=== PATIENT | female | born 1960 | race Caucasian/White ===

== ENCOUNTER → 2019-05-11 13:11 | Outpatient (BNVA) | payer OTHER, SELFPAY | PROVIDERS: Family Provider Internal Medicine; PCP Internal Medicine; Visit Provider Specialist | DX: G20 Parkinson's disease (principal) | CPT/HCPCS: 99214 ==

== ENCOUNTER 2019-05-14 13:00 | Outpatient (CLI) | payer OTHER, SELFPAY ==
--- NOTE | 2019-05-14 13:13 | XR_ITS ---
WS: [id number] DEXA (DUAL ENERGY X-RAY ABSORPTIOMETRY) Bone mineral density was performed using a [employer] machine. HISTORY: Status, asymptomatic POSTMENOPAUSAL COMPARISON: None available. Lumbar spine BMD (L1-L4): 0.970 g/cm2 T score: -1.7 Z score: -1.7 Total hip BMD: Left: 0.686 g/cm2. T score: -2.5 Z score: -2.4 Right: 0.660 g/cm2. T score: -2.8 Z score: -2.6 10 year probability of a major osteoporotic fracture is 21%. XR/XR DEXA axial skeleton* [id number] IMPRESSION: OSTEOPOROSIS based upon the WHO classification for females.
== END 2019-05-14 13:01 | disposition home or self-care (01) ==
LOC: RADWPI 13:07
PROVIDERS: Family Provider Internal Medicine; PCP Internal Medicine; Visit Provider Internal Medicine
DX: Z78.0 Asymptomatic menopausal state (principal); M81.0 Age-related osteoporosis without current pathological fracture
CPT/HCPCS: 77080

== ENCOUNTER 2019-05-18 08:25 | Outpatient (CLI) | payer OTHER, SELFPAY ==
--- NOTE | 2019-05-18 08:30 | MM_ITS ---
WS: [id number] SCREENING DIGITAL MAMMOGRAM WITH CAD HISTORY: SCREENING COMPARISON: 06/19/2017, 08/02/2014 and 07/31/2015 Bilateral CC and MLO views submitted. Computer aided detection analyzed. Breast composition: There are scattered areas of fibroglandular density. Scattered asymmetries in the RIGHT breast. These asymmetries are irregular shaped and in the central breast. Asymmetry seen on th e RIGHT MLO does not correspond in location to the asymmetries on the CC projection. I favor these ar e probably all fibroglandular superimposed asymmetries. RIGHT breast: Spot compression views (CC and MLO). True ML. Ultrasound to follow if abnormality persi sts. MM/[place] [id number] IMPRESSION: BI-RADS: 0-Incomplete: Need additional imaging evaluation FOLLOW UP: Need Additional Imaging
== END 2019-05-18 08:26 | disposition home or self-care (01) ==
LOC: RADSHAW 08:28
PROVIDERS: Family Provider Internal Medicine; PCP Internal Medicine; Visit Provider Internal Medicine
DX: Z12.31 Encounter for screening mammogram for malignant neoplasm of breast (principal)
CPT/HCPCS: 77067

== ENCOUNTER 2019-05-25 09:55 | Outpatient (CLI) | payer OTHER, SELFPAY ==
--- NOTE | 2019-05-25 10:03 | MM_ITS ---
WS: [id number] ADDITIONAL VIEWS RIGHT BREAST HISTORY: RT BREAST ASYMMETRIES COMPARISON: 08/02/2014, 05/18/2019 and 06/19/2017 and 07/31/2015 Compression views right CC and MLO projection. True ML also submitted. Additional views of the RIGHT breast have been performed. The previously described asymmetries comple tely resolved. The overall fibroglandular pattern and calcifications are similar to prior studies. No distortion. FOLLOW-UP: 1 Year Follow-up Asymmetries resolve with additional imaging. Return to annual screening. MM/[place] [id number] IMPRESSION: BI-RADS: 2-Benign
== END 2019-05-25 09:56 | disposition home or self-care (01) ==
LOC: RADSHAW 09:57
PROVIDERS: Family Provider Internal Medicine; PCP Internal Medicine; Visit Provider Internal Medicine
DX: N64.89 Other specified disorders of breast (principal)
CPT/HCPCS: 77065

== ENCOUNTER 2019-08-17 11:29 | Outpatient (CLI) | payer OTHER, SELFPAY ==
--- NOTE | 2019-08-17 11:44 | XR_ITS ---
WS: [id number] LEFT KNEE: 3 VIEW(S) TECHNIQUE: AP, oblique(s) and lateral. HISTORY: PAIN IN LT KNEE COMPARISON: None available. No fracture or dislocation. No joint space narrowing or osteophytes. No joint effusion. No soft tissue abnormality. XR/XR knee LT 3V* [id number] IMPRESSION: Normal LEFT knee.
== END 2019-08-17 11:30 | disposition home or self-care (01) ==
LOC: RADWPI 11:33
PROVIDERS: Family Provider Internal Medicine; PCP Internal Medicine; Visit Provider Internal Medicine
DX: M25.562 Pain in left knee (principal)
CPT/HCPCS: 73562

== ENCOUNTER 2019-08-29 05:54 | Inpatient (IN) | payer OTHER, SELFPAY ==
[2019-08-29] VITALS (24 sets, daily range): BP systolic 106–162; BP diastolic 60–103; PULSE 81–96; RESP 14–22; TEMP 36.2–36.9; O2SAT 93–100; BMI 35.2
--- NOTE | 2019-08-29 | XR_ITS ---
WS: [id number] XR hip RT 2-3V wo/w pel* [id number] REASON FOR EXAM: OR PICS FINDINGS: The fracture of the intertrochanteric areas seen stabilized with a gamma nail apparatus the alignment is satisfactory for healing. XR/XR hip RT 2-3V wo/w pel* [id number] IMPRESSION: Successful reduction and immobilization with a gamma nail of an intertrochanter ic fracture of the right hip.
--- NOTE | 2019-08-29 | SCC_ITS ---
Procedure Done: Open reduction internal fixation of right intertrochanteric hip fracture treated with intramedullary nail with proximal and distal interlocking 152.6 seconds of fluoroscopic guidance, for a cumulative dose of 32.51 mGy, was provided to Dr. Rodriguez by the radiology department. C-arm images of the RIGHT hip were saved for the patient's permanent record. [facility]
--- NOTE | 2019-08-29 06:05 | XRR_ITS ---
PROCEDURE INFORMATION: Exam: XR Right Hip with Pelvis when Performed Exam date and time: 08/29/2019 6:36 AM Age: 58 years old Clinical indication: Injury or trauma; Fall; Initial encounter; Blunt trauma (contusions or hematomas); Right; Hip TECHNIQUE: Imaging protocol: XR Right hip with pelvis when performed. Views: 1 view. COMPARISON: No relevant prior studies available. FINDINGS: Bones/joints: Acute fracture of the proximal right femur with medial displacement of the major distal fracture fragment. Soft tissues: Diffuse soft tissue prominence. XR/XR hip RT 2-3V wo/w pel* [id number] IMPRESSION: Acute fracture of the proximal right femur with medial displacement of the major distal fracture fragment.
--- NOTE | 2019-08-29 06:09 | W.ED.FALL ---
HPI - Fall General: Chief Complaint: Fall Stated Complaint: fall/ hip pain Time Seen by Provider: 08/29/19 06:05 Review of Systems General: Reports: 10 or more systems reviewed and unremarkable except in HPI and below Musc: Reports: back pain, extremity pain, joint pain and limited range of motion PFSH ED PFSH: Social History Smoking and tobacco status: never smoked Alcohol intake: never Physical Exam HENMT: COMMON NORMALS: normocephalic HEAD & SCALP: normocephalic Resp: COMMON NORMALS: normal respiratory effort, no retractions and no use of accessory muscles Cardio: COMMON NORMALS: regular rate and regular rhythm RATE: regular rate RHYTHM: regular rhythm Extremity: RIGHT LOWER EXTREMITY: Yes hip joint Course Vital Signs: Vital signs: Vital Signs Temperature 97.7 F 08/29/19 05:58 Pulse Rate 81 08/29/19 07:12 Respiratory Rate 16 08/29/19 07:12 Blood Pressure 155/88 08/29/19 07:12 Pulse Oximetry 98 08/29/19 07:12 MDM - Fall Lab Data: Labs: Lab Results 08/29/19 Range/Units 06:40 WBC 7.0 (4.0-10.0) 10^3/ uL RBC 4.67 (4.1-5.3) 10^6/u L Hgb 12.2 (11.5-15.3) g/dL Hct 40.6 (37.0-47.0) % MCV 86.9 (81-99) fL MCH 26.1 L (28.0-34.0) pg MCHC 30.0 (30.0-36.0) g/dL RDW 14.5 (12.1-15.1) % Plt Count 199 (130-400) 10^3/c mm MPV 12.4 H (7.4-10.4) fL Neut % (Auto) 65.4 % Lymph % (Auto) 24.0 % [place] % (Auto) 7.2 % Eos % (Auto) 1.7 % Baso % (Auto) 0.6 % Neut # (Auto) 4.6 (1.8-7.7) 10^3/u L Lymph # (Auto) 1.7 (0.8-4.8) 10^3/u L [place] # (Auto) 0.5 (0.2-0.9) 10^3/u L Eos # (Auto) 0.1 (0.0-0.8) 10^3/u L Baso # (Auto) 0.0 (0.0-0.1) 10^3/u L Nucleated RBC % (a uto) 0 % Nucleated RBCs # 0.0 /100WBC Imaging Data^: Xray Ortho: My impression: Right hip comminuted intertrochanteric fracture Discharge Plan Discharge Patient Disposition: Admitted As Inpatient Clinical Impression: Hip fracture, right Qualifiers: Encounter type: initial encounter Fracture type: closed Qualified Code(s): S72.001A - Fracture of unspecified part of neck of right femur, initial encounter for closed fracture Condition: Stable Referrals: Ricarda Duffy MD [Primary Care Provider] - Coding Level of Care Code ED Recreation Therapy Aides Teacher for Chg Fwd Exam Expanded Problem Focused
--- NOTE | 2019-08-29 06:19 | XRR_ITS ---
PROCEDURE INFORMATION: Exam: XR Chest, 1 View Exam date and time: 08/29/2019 6:42 AM Age: 58 years old Clinical indication: Injury or trauma; Fall; Initial encounter; Blunt trauma (contusions or hematomas); Additional info: FX hip TECHNIQUE: Imaging protocol: XR of the chest Views: 1 view. COMPARISON: CR Ribs RIGHT w PA Chest [id number] 04/09/2019 10:19 AM FINDINGS: Lungs: Mild interstitial prominence without acute airspace disease. Pleural space: No pleural effusion. Heart/Mediastinum: Epicardial fat accentuates the cardiac silhouette. Bones/joints: Osteopenia. Old rib fractures. When correlating with the previous study, no significant interval changes are present. XR/XR chest 1V portable [id number] IMPRESSION: Stable appearance of the chest, not significantly changed from 04/09/19.
[2019-08-29] MEDS: ondansetron 2 mg/ML SDV 2 mL 4 MG IVP (06:45)
[2019-08-29] MEDS: fentaNYL 50 mcg/mL INJ 2mL IVP ×3 (06:55→09:45)
[2019-08-29 07:05] LABS: Basophils % 0.6 %; Eosinophils # 0.1 10^3/uL (0.0-0.8); Eosinophils % 1.7 %; Hematocrit 40.6 % (37.0-47.0); Hemoglobin 12.2 g/dL (11.5-15.3); Lymphocytes # 1.7 10^3/uL (0.8-4.8); Mean Corpuscular Hemoglobin 26.1 pg (28.0-34.0); Mean Corpuscular Volume 86.9 fL (81-99); Mean Platelet Volume 12.4 fL (7.4-10.4); Monocytes # 0.5 10^3/uL (0.2-0.9); Monocytes % 7.2 %; Neutrophils # 4.6 10^3/uL (1.8-7.7); Neutrophils % 65.4 %; Nucleated Red Blood Cells % 0 %; Platelet Count 199 10^3/cmm (130-400); Red Blood Count 4.67 10^6/uL (4.1-5.3); Red Cell Distribution Width 14.5 % (12.1-15.1)
--- NOTE | 2019-08-29 07:14 | PC.NURSE ---
First attempt at catheterization unsuccessful. Pt tolerated well. Pt states when she self-caths she has difficulty as well.
[2019-08-29 07:20] LABS: Alanine Aminotransferase 6 U/L (0-33); Albumin Level 4.2 g/dL (3.5-5.2); Alkaline Phosphatase 108 IU/L (35-105); Anion Gap 16.3 (5-19); Blood Urea Nitrogen 11 mg/dL (6-20); Calcium 9.2 mg/dL (8.5-10.5); Carbon Dioxide 26 mmol/L (22-29); Chloride 106 mmol/L (98-107); Globulin 2.7 g/dL (1.3-4.6); Glomerular Filtration Rate 73.9 mL/min (90-130); Glucose 105 mg/dL (65-115); Osmolality Calculated 294 mOsm/kg (285-295); Potassium 4.3 mmol/L (3.5-5.1); Sodium 144 mmol/L (136-145); Total Bilirubin 0.3 mg/dL (0.15-1.2); Total Protein 6.9 g/dL (6.6-8.7)
[2019-08-29 07:30] LABS: Aspartate Amino Transferase 23 U/L (0-32)
[2019-08-29 07:38] LABS: Glucose Urine UA Norm (Normal); Ketones Urine 1+ (Negative); Protein Urine Trace (Negative); Specific Gravity, Urine 1.015 (1.005-1.030); Urine Appearance Hazy (CLEAR); Urine Color Yellow (Yellow); pH Urine 5 (5-7)
[2019-08-29 07:39] LABS: Add Urine Culture? Yes; Add Urine Microscopic? YES; Bacteria Urine 1+; Bilirubin Urine Neg (NEGATIVE); Blood Urine 2+ (Negative); Leukocyte Esterase Urine 2+ (Negative); Nitrate Urine Positive (Negative); RBC Urine 0-4 /hpf (0-2); Squamous Epithelial Cell Urine 0-4 (0-5); Urobilinogen Urine Norm (Negative); WBC Urine TOO NUMEROUS TO CNT /hpf (0-5)
[2019-08-29 07:43] LABS: INR 0.92 (0.8-1.2)
--- NOTE | 2019-08-29 08:03 | ANES.PREANE2 ---
Pre-Anesthetic Assessment Pre-Anesthetic Assessment: Height/Weight: Height 1.68 m Weight 98.883 kg Temp Pulse Resp BP Pulse Ox 97.7 F 83 16 143/87 97 08/29/19 05:58 08/29/19 07:52 08/29/19 07:52 08/29/19 07:52 08/29/19 07:52 Preop Diagnosis: Hip Fracture Proposed Procedure: Trochanteric IM Nail Familial anesthetic complications: PONV Was Beta Elias taken within 24 hours: N/A Last intake: Little [employer]ile[employer] Snack Donut at 0300 (not filled - dough only donut) Social: Social History: No alcohol and No tobacco Exam: Pre-Anes Outpt Exam: alert, oriented x 3, clear to auscultation bilaterally and regular rate & rhythm Airway: Cervical ROM: WNL MP: 4 Additional comments: Missing teeth Pulmonary: Pulmonary: Asthma (Symbicort 2x daily, rescue inhaler use 1x daily) CV/HEM: CV/HEM: None reported : : None reported Comments: Incontinence Hepatic: Hepatic: None reported GI: GI: GERD Metabolic: Metabolic: Morbid obesity Musc/skel: Musc/skel: Lower Back Pain and OA/DJD Neuropsych: Comments: Parkinson's Disease Anesthetic Plan: ASA status: 3 Anesthesia: General Risk of > 500 ml blood loss (7ml/kg in children): No PFSH Anesthesia PFSH: Social History Smoking and tobacco status: never smoked Alcohol intake: never Data Anesthesia CBC & Chem 7: 08/29/19 06:40 08/29/19 06:40 Other Labs: Laboratory Results - last 48 hr 08/29/19 08/29/19 08/29/19 06:40 06:40 06:40 WBC 7.0 RBC 4.67 Hgb 12.2 Hct 40.6 MCV 86.9 MCH 26.1 L MCHC 30.0 RDW 14.5 Plt Count 199 MPV 12.4 H Neut % (Auto) 65.4 Lymph % (Auto) 24.0 [place] % (Auto) 7.2 Eos % (Auto) 1.7 Baso % (Auto) 0.6 Neut # (Auto) 4.6 Lymph # (Auto) 1.7 [place] # (Auto) 0.5 Eos # (Auto) 0.1 Baso # (Auto) 0.0 Nucleated RBC % (auto) 0 Nucleated RBCs # 0.0 PT 12.60 INR 0.92 Sodium 144 Potassium 4.3 Chloride 106 Carbon Dioxide 26 Anion Gap 16.3 BUN 11 Creatinine 0.8 GFR Calculation 73.9 L Glucose 105 Calculated Osmolality 294 Calcium 9.2 Total Bilirubin 0.3 AST 23 ALT 6 Alkaline Phosphatase 108 H Total Protein 6.9 Albumin 4.2 Globulin 2.7 Urine Color Urine Appearance Urine pH Ur Specific [place] Urine Protein Urine Glucose (UA) Urine Ketones Urine Blood Urine Nitrate Urine Bilirubin Urine Urobilinogen Ur Leukocyte Esterase Urine RBC Urine WBC Ur Squamous Epith Cells Urine Bacteria 08/29/19 07:07 WBC RBC Hgb Hct MCV MCH MCHC RDW Plt Count MPV Neut % (Auto) Lymph % (Auto) [place] % (Auto) Eos % (Auto) Baso % (Auto) Neut # (Auto) Lymph # (Auto) [place] # (Auto) Eos # (Auto) Baso # (Auto) Nucleated RBC % (auto) Nucleated RBCs # PT INR Sodium Potassium Chloride Carbon Dioxide Anion Gap BUN Creatinine GFR Calculation Glucose Calculated Osmolality Calcium Total Bilirubin AST ALT Alkaline Phosphatase Total Protein Albumin Globulin Urine Color Yellow Urine Appearance Hazy A Urine pH 5 Ur Specific [place] 1.015 Urine Protein Trace Urine Glucose (UA) Norm Urine Ketones 1+ H Urine Blood 2+ H Urine Nitrate Positive H Urine Bilirubin Neg Urine Urobilinogen Norm Ur Leukocyte Esterase 2+ H Urine RBC 0-4 H Urine WBC Too numerous to cnt H Ur Squamous Epith Cells 0-4 H Urine Bacteria 1+ H Cardiac Studies: No Data to Display
--- NOTE | 2019-08-29 08:28 | P.CONIM_ITS ---
Providers/Reason For Consult Consulting Physican/Specialty*: Francisco Potterhgomez KNOTT Orthopedic surgery Reason for Consult*: Right hip fracture Attending Physician: Ismael Winters MD Primary Care Provider: Ricarda Duffy MD History of Present Illness History of Present Illness Liliana Davis is a 58 year old female who fell at home sustaining a right intertrochanteric hip fracture. She is brought to [facility] emergency room where she was evaluated and images were taken. Orthopedic consultation requested. Review of Systems Const: Denies: fever or chills Card: Denies: chest pain, palpitations or syncope Resp: Denies: shortness of breath or productive cough GI: Denies: abdominal pain, nausea or vomiting Musc: Reports: joint pain (right hip) Meds/Allergies Home Medications and Allergies Home Medications Medication Instructions Recorded Confirmed Last Taken Type albuterol sulfate 90 mcg/actuation 2 puff INHALATION Q6H PRN 05/11/19 05/11/19 Unknown History aerosol inhaler budesonide-formoterol HFA 160 2 puff INHALATION BID 05/11/19 05/11/19 Unknown History mcg-4.5 mcg/actuation aerosol inhaler calcium carbonate 600 mg (1,500 1 tab PO BID 05/11/19 05/11/19 Unknown History mg)-vitamin D3 400 unit tablet carbidopa 25 mg-levodopa 250 mg 1 tab PO .COMPLEX tab 05/11/19 05/11/19 Unknown History tablet cetirizine 10 mg capsule 10 mg PO ONCE 05/11/19 05/11/19 Unknown History magnesium oxide 400 mg PO ONCE cap 05/11/19 05/11/19 Unknown History omeprazole 40 mg capsule,delayed 40 mg PO BID 05/11/19 05/11/19 Unknown History release oxybutynin chloride 10 mg 10 mg PO ONCE 05/11/19 05/11/19 Unknown History tablet,extended release 24 hr tramadol 50 mg tablet 50 mg PO ONCE PRN tab 05/11/19 05/11/19 Unknown History triamcinolone acetonide 55 mcg 1 spray INTRANASAL BID ml 05/11/19 05/11/19 Unknown History nasal spray aerosol ropinirole 0.5 mg tablet 0.5 mg PO .COMPLEX #120 tab 06/23/19 Unknown Rx Allergies Allergy/AdvReac Type Severity Reaction Status Date / Time aspirin Allergy swelling Verified 05/11/19 13:23 PFSH Acute PFSH: Medical History (Updated 08/29/19 @ 09:32 by Ismael Winters MD) Asthma Closed intertrochanteric fracture of right hip Social History Smoking and tobacco status: never smoked Alcohol intake: never Vitals/I&O/Wt Last Vital Signs Temp 97.7 F 08/29/19 05:58 Pulse 83 08/29/19 07:52 Resp 16 08/29/19 07:52 BP 143/87 08/29/19 07:52 Pulse Ox 97 08/29/19 07:52 Weight last 48 hrs Weight 218 lb Physical Exam Const: COMMON NORMALS: no apparent distress GENERAL APPEARANCE: well developed; not ill appearing Urinary Catheter Management^: Akins: Cath Placed During This Visit: yes Urinary Catheter Date of Insertion: 08/29/19 Urinary Catheter Time of Insertion: 07:15 A&P Assessment and plan (1) Closed intertrochanteric fracture of right hip: Plan for interventional nailing right intertrochanteric hip fracture Contacted daughter to provide information of plan for surgery. Risk, benefits potential complications are discussed the patient she is agreeable to proceed Status: Acute Consult Attestations Medical Necessity Statement: Patient require at least 2 overnight stays for treatment of right intertrochanteric hip fracture Time Spent in Patient Care: 16 - 35 minutes (>than 50% of time spent in counselling and/or direct pt care on unit) . 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
--- NOTE | 2019-08-29 09:29 | P.HP_ITS ---
Providers/Chief Complaint Admitting Physician: Ismael Winters MD Primary Care Provider: Ricarda Duffy MD Chief Complaint: RIGHT HIP FRACTURE History of Present Illness Liliana Davis is a 58 year old female with past medical history of parkinsonism, asthma presented to the ER today after she missed her step and fell down the stairs and started having pain in her hip. Patient states she has been unsteady on her feet for quite some time. She denies of hitting her head. In the ER patient was found to have acute fracture of proximal right femur with displacement so was taken to the OR for ORIF. Patient examined post surgery. On examination was lying comfortably in bed, denying of any nausea, vomiting, headache, dizziness, palpitations, shortness of breath. Patient denies of having any flulike symptoms, nausea, runny nose, cough, dysuria, diarrhea. Review of Systems Const: Denies: fever, chills, body aches, change in appetite, malaise, night sweats, diaphoresis, change in sleep pattern, daytime sleepiness or snoring Eyes: Denies: change in vision, blurry vision, photophobia, eye discomfort or eye discharge ENMT: Denies: throat pain, enlarged tonsils, hoarseness, mouth pain, oral sores/lesions, dry mouth, tinnitus, nasal congestion or post nasal drip Card: Denies: chest pain, palpitations, irregular heart rhythm, edema, swelling of feet/ankles, lightheadedness, syncope, pre-syncope, shortness of breath on exertion, shortness of breath when lying down, leg pain with exertion or bluish discoloration of hands/feet Resp: Denies: shortness of breath, productive cough, non-productive cough, wheezing, stridor, pain on inspiration, change in phlegm color, coughing up blood or chest congestion GI: Denies: abdominal pain, nausea, vomiting, vomiting blood, coffee grounds in vomit, difficulty swallowing, heartburn/indigestion, diarrhea, constipation, bloating, cramping, change in bowel habits, painful bowel movements, blood in stool or black tarry stool : Denies: flank pain, painful urination, urinary frequency, urinary urgency, urinary hesitancy, nighttime urination or blood in urine Musc: Denies: neck pain, back pain, extremity pain, joint pain, joint swelli ng, redness, joint stiffness or limited range of motion Neuro: Reports: lack of coordination, difficulty walking and frequent falls; Denies: headache, numbness in extremities, weakness in extremities, changes in sensation, dizziness, vertigo, confusion, slurred speech, difficulty communicating thoughts or seizure-like activity Psych: Denies: anxiety, depression, mood swings, panic attacks, hopelessness or irritability Endo: Denies: excessive urination, excessive thirst, tired all the time, cold intolerance, excessive sweating, flushing or heat intolerance [place]/Lymph: Denies: easy bruising or easy bleeding All/Imm: Denies: tongue swelling, facial swelling or acute wheezing Medications/Allergies Home Medications Medication Instructions Recorded Confirmed Last Taken Type albuterol sulfate 90 mcg/actuation 2 puff INHALATION Q6H PRN 05/11/19 05/11/19 Unknown History aerosol inhaler budesonide-formoterol HFA 160 2 puff INHALATION BID 05/11/19 05/11/19 Unknown History mcg-4.5 mcg/actuation aerosol inhaler calcium carbonate 600 mg (1,500 1 tab PO BID 05/11/19 05/11/19 Unknown History mg)-vitamin D3 400 unit tablet carbidopa 25 mg-levodopa 250 mg 1 tab PO .COMPLEX tab 05/11/19 05/11/19 Unknown History tablet cetirizine 10 mg capsule 10 mg PO ONCE 05/11/19 05/11/19 Unknown History magnesium oxide 400 mg PO ONCE cap 05/11/19 05/11/19 Unknown History omeprazole 40 mg capsule,delayed 40 mg PO BID 05/11/19 05/11/19 Unknown History release oxybutynin chloride 10 mg 10 mg PO ONCE 05/11/19 05/11/19 Unknown History tablet,extended release 24 hr tramadol 50 mg tablet 50 mg PO ONCE PRN tab 05/11/19 05/11/19 Unknown History triamcinolone acetonide 55 mcg 1 spray INTRANASAL BID ml 05/11/19 05/11/19 Unknown History nasal spray aerosol ropinirole 0.5 mg tablet 0.5 mg PO .COMPLEX #120 tab 06/23/19 Unknown Rx Allergies Allergy/AdvReac Type Severity Reaction Status Date / Time aspirin Allergy swelling Verified 05/11/19 13:23 PFSH Acute PFSH: Medical History (Updated 08/29/19 @ 09:32 by Ismael Winters MD) Asthma Closed intertrochanteric fracture of right hip Social History Smoking and tobacco status: never smoked Alcohol intake: never Vitals/I&O/Wt Last Vital Signs Temp 97.9 F 08/29/19 08:07 Pulse 84 08/29/19 08:07 Resp 18 08/29/19 09:21 BP 144/82 08/29/19 08:07 Pulse Ox 100 08/29/19 09:21 Weight last 48 hrs Weight 98.883 kg Physical Exam Narrative: EXAM NARRATIVE: General: No acute distress, AO x3 HEENT: PERRLA, pupils bilaterally equal and reactive Chest: Normal vesicular breath sounds, no added sounds, equal good air entry bilaterally CVS: S1-S2 regular, no murmurs, no tachycardia, no gallops, no rubs Abdomen: Soft, nontender, no organomegaly, bowel sounds present Neuro: No focal deficits, no facial deformity, AO x3, power 5/5 in all limbs Extremities: Surgical dressing present. Urinary Catheter Management^: Akins: Cath Placed During This Visit: yes Urinary Catheter Date of Insertion: 08/29/19 Urinary Catheter Time of Insertion: 07:15 Data : 08/29/19 06:40 08/29/19 06:40 A&P Assessment and plan (1) Closed intertrochanteric fracture of right hip: Status: Acute (2) Hip fracture, right: Status: Acute Qualifiers: Encounter type: initial encounter Fracture type: closed Qualified Code(s): S72.001A - Fracture of unspecified part of neck of right femur, initial encounter for closed fracture (3) Parkinson disease: Status: Acute (4) Asthma: Status: Acute Additional A&P Information Closed intertrochanteric fracture of the right hip: Post-ORIF. Postop day 0. Perioperative antibiotics as per Dr. Rodriguez. Physical therapy, anticoagulation as per Dr. Rodriguez. Check stat CBC. We will monitor for hemoglobin. Percocet for pain, Toradol every 6 hours as needed for pain. Parkinsonism: Continue with home dose of carbidopa. UTI: Patient to get cefuroxime IV every 8 hours today as per Dr. Rodriguez. Restarted on ceftriaxone from tomorrow morning. We will de-escalate as per urine cultures. Asthma: DuoNeb's every 6 hours. Continue chronic medications like carbidopa, magnesium, oxybutynin, ropinirole Anticoagulation as per Dr. Rodriguez Clear liquid diet for now, advance as per surgery for dinner. Full code. Attestations Medical Necessity Statement*: > 2 MN for Hip fracture Time Spent in Patient Care: 16 - 35 minutes Coding Level of Care Code Acute Distribution Sales Representative for [facility] Diagnoses Closed intertrochanteric fracture of right hip S72.141A Hip fracture, right S72.001A Encounter type: initial encounter Fracture type: closed Parkinson disease G20 Asthma J45.909
[2019-08-29] MEDS: scopolamine 1.5 Patch 1 PATCH TRANSDERMA (10:21)
[2019-08-29] MEDS: sodium chloride 0.9% 1,000 ML 30 ML IV (11:10)
--- NOTE | 2019-08-29 11:14 | PM.OP ---
Operative Report Date of procedure: August 29, 2019 Pre-op Diagnosis: Right intertrochanteric hip fracture Post-op diagnosis: same Post-op Findings: Satisfactory reduction of fracture Procedure Done: Open reduction internal fixation of right intertrochanteric hip fracture treated with intramedullary nail with proximal and distal interlocking Implants: [employer] short gamma nail Pathology: none sent Surgeon: Francisco Rodriguez Anesthesia: General Estimated blood loss (mL): 500 Complications: No apparent complications Findings: Satisfactory reduction. Fluoroscopic imaging demonstrates satisfactory placement of implants. Condition: stable Disposition: PACU Brief History: 58-year-old white female who fell at home injuring her right hip. X-rays of the right hip taken in the [facility] emergency room show a displaced right intertrochanteric hip fracture with reverse obliquity. Risk, benefits and potential complications of surgery discussed with the patient. Risks of surgery include are not limited to failure fracture to heal complications from implant such as breakage or cutting out. Wound healing complications such as hematoma or seroma, nerve/blood vessel/tendon injury. Medical complications can include blood clots, heart attack, stroke risk up to including . There is a small chance patient could require transfusion at some point during her hospital course. Risk of transfusion include transfusion reaction transmission of infectious diseases such as hepatitis and AIDS all of which can be fatal. All the patient's questions were answered she is agreeable to proceed with surgery. Procedure: 1.5 g Zinacef Cheri gamma nail 125? neck angle 10 mm diameter by 170 mm length 95 x 10.5 mm lag screw 5 mm x 35 mm distal interlocking screw Patient identified. Surgical site signed. Surgical permit signed. Patient received 1.5 g of Zinacef intravenously for surgical prophylaxis. Patient was placed under general anesthesia while in her hospital bed and then transferred to the fracture table and position for right hip surgery. The affected limb was adducted, internally rotated and placed in traction. Flouroscopic imaging in AP and lateral images showed satisfactory reduction of the patient's hip fracture. The patient received 1 g of T XA intravenously prior to skin incision. A 16 cm incision was made just proximal to the tip of the greater trochanter in line with the long axis of the femur. Dissection was carried down sharply with knife through skin, subcutaneous tissue and the fascia boris down to the tip of the greater trochanter. A Germain elevator was used to reduce the fracture by placing lateral to medial pressu on the proximal fracture fragment. The initial guidewire was placed at the greater trochanteric starting point under fluoroscopic guidance and then advanced into the intramedullary canal. The opening drill reamer was then used to create the starting point for the gamma nail insertion. Along bead-tipped guidewire was inserted and serial reaming was performed from 9 mm up to 12 mm. A 10 mm diameter by 170mm mm by 125 degree neck angle Gamma nail was inserted through the starting point. A 2 cm incision was made for insertion of the lag screw. Depth of insertion as well as version was then assessed using fluoroscopic imaging and by inserting the short guidewire for the lag screw. Once satisfied with depth of insertion and version the guidewire was advanced under fluoroscopic imaging to the appropriate depth. Depth of insertion measured 98 mm, I opted to insert a 95 mm length by 10.5 mm diameter lag screw. Drill reamer was used to ream to 95 mm and the lag screw was inserted. The fracture was compressed. The lag screw was locked into position with a set screw and the set screw was loosened 1/4 turn to allow compression at the fracture site. A single distal interlocking screw was inserted using the guide and cannulated sleeves after making a third longitudinal incision 1 cm in length along the long axis of the femur. The distal interlocking hole in the nail. Fluoroscopic imaging was used to verify that the drill bit indeed went through the appropriate hole. A depth gauge was used. A 5 mm x 35 mm distal interlocking screw was then inserted without difficulty. Fluoroscopic imaging was used to verify the placement of all implants. Reduction of the fracture and placement of implants was found to be satisfactory on AP and lateral fluoroscopic imaging. The wounds were irrigated with antibiotic containing saline solution. The patient received floseal placed in the proximal wound prior to wound closure. A medium Hemovac drain was placed from inside o for wound drainage. The wounds were closed in layers with 3-0 monocryl, dermabond and steri strips on skin. 20 mL of a one-to-one mixture of 1% lidocaine half percent Marcaine with epinephrine were injected into the incision sites. Sterile dressings were applied. The patient was taken off of the fracture table transferred to her hospital bed extubated and taken to the recovery room. All counts were correct. Patient tolerated procedure well.
[2019-08-29] MEDS: cefUROXime 1,500 MG in sodium chloride 0.9% (plus) 50 ML 100 MG IV ×2 (11:40→20:47)
[2019-08-29] MEDS: chlorhexidine gluconate 0.12% Btl 473 mL 30 ML MUCOUS MEM ×3 (14:35→20:49)
[2019-08-29] MEDS: sodium chloride 0.9% 1,000 ML 100 ML IV (14:36)
[2019-08-29] MEDS: oxyCODONE-APAP 5-325 mg Tablet 1 TAB PO (14:50)
[2019-08-29 14:56] LABS: Iron 24 ug/dL (37-145); Percent Saturation 6.8 % (20-50); Total Iron Binding Capacity 351 mcg/dl; Unsaturated Iron Binding 327 ug/dL (112-347)
[2019-08-29] MEDS: famotidine 20 mg/2 mL INJ IVP (14:59)
[2019-08-29 15:36] LABS: Hematocrit 35.8 % (37.0-47.0); Hemoglobin 10.5 g/dL (11.5-15.3)
[2019-08-29] MEDS: pantoprazole DR 40 mg Tablet PO (17:27)
[2019-08-29] MEDS: iron polysaccharide complex 150 mg Capsule PO (17:28)
[2019-08-29] MEDS: gabapentin 100 mg Capsule PO ×2 (17:28→20:49)
[2019-08-29] MEDS: ropinirole 1 mg Tablet PO ×2 (17:29→20:48)
[2019-08-29] MEDS: ipratropium-albuterol 3 mL Neb INHALATION ×2 (17:31→20:35)
[2019-08-29] MEDS: neomycin-poly-bacitracin oint 28 gm 1 APPLIC TOPICAL (17:32)
[2019-08-29] MEDS: carbidopa-levodopa 25-250mg Tablet 1 EACH PO ×2 (17:57→20:49)
[2019-08-29] MEDS: ketorolac 10 mg Tablet PO (22:01)
[2019-08-30] VITALS (12 sets, daily range): BP systolic 90–127; BP diastolic 52–72; PULSE 81–94; RESP 16–20; TEMP 36.3–37.2; O2SAT 91–99
[2019-08-30] MEDS: HYDROmorphone 1 mg/mL INJ 1 mL 0.5 MG IVP (00:17)
[2019-08-30] MEDS: rivaroxaban 10 mg Tablet PO ×2 (02:31→08:57)
[2019-08-30] MEDS: famotidine 20 mg/2 mL INJ IVP (02:32)
[2019-08-30] MEDS: ipratropium-albuterol 3 mL Neb INHALATION ×2 (02:32→16:03)
[2019-08-30] MEDS: sodium chloride 0.9% 1,000 ML 100 ML IV ×2 (03:04→22:14)
[2019-08-30] MEDS: cefUROXime 1,500 MG in sodium chloride 0.9% (plus) 50 ML 100 MG IV ×2 (04:52→12:45)
[2019-08-30] MEDS: carbidopa-levodopa 25-250mg Tablet 1 EACH PO ×5 (04:53→22:14)
[2019-08-30 06:10] LABS: Basophils % 0.2 %; Hemoglobin 8.7 g/dL (11.5-15.3); Lymphocytes # 1.4 10^3/uL (0.8-4.8); Lymphocytes % 15.1 %; Mean Corpuscular Hemoglobin 26.7 pg (28.0-34.0); Mean Platelet Volume 11.8 fL (7.4-10.4); Monocytes # 0.8 10^3/uL (0.2-0.9); Monocytes % 8.7 %; Neutrophils # 6.8 10^3/uL (1.8-7.7); Neutrophils % 75.3 %; Nucleated Red Blood Cells % 0 %; Platelet Count 163 10^3/cmm (130-400); Red Blood Count 3.26 10^6/uL (4.1-5.3); Red Cell Distribution Width 14.7 % (12.1-15.1)
[2019-08-30 06:25] LABS: Alanine Aminotransferase < 5 U/L (0-33); Albumin Level 3.3 g/dL (3.5-5.2); Alkaline Phosphatase 75 IU/L (35-105); Anion Gap 9.7 (5-19); Aspartate Amino Transferase 27 U/L (0-32); Blood Urea Nitrogen 12 mg/dL (6-20); Carbon Dioxide 28 mmol/L (22-29); Chloride 109 mmol/L (98-107); Globulin 2.2 g/dL (1.3-4.6); Glomerular Filtration Rate 73.9 mL/min (90-130); Glucose 114 mg/dL (65-115); Osmolality Calculated 291 mOsm/kg (285-295); Potassium 4.7 mmol/L (3.5-5.1); Sodium 142 mmol/L (136-145); Total Bilirubin 0.4 mg/dL (0.15-1.2); Total Protein 5.5 g/dL (6.6-8.7)
[2019-08-30] MEDS: iron polysaccharide complex 150 mg Capsule PO ×2 (08:00→17:24)
[2019-08-30] MEDS: oxyCODONE-APAP 5-325 mg Tablet 1 TAB PO ×2 (08:00→18:17)
[2019-08-30] MEDS: chlorhexidine gluconate 0.12% Btl 473 mL 30 ML MUCOUS MEM ×4 (08:56→22:13)
[2019-08-30] MEDS: gabapentin 100 mg Capsule PO ×3 (08:56→22:13)
[2019-08-30] MEDS: cholecalciferol (vitamin D3) 1,000 unit Tablet 1000 UNIT PO (08:57)
[2019-08-30] MEDS: pantoprazole DR 40 mg Tablet PO ×2 (08:57→17:24)
[2019-08-30] MEDS: multivitamin therapeutic Tablet 1 TAB PO (08:57)
[2019-08-30] MEDS: ropinirole 1 mg Tablet 0.5 MG PO ×2 (09:05→15:08)
--- NOTE | 2019-08-30 09:43 | PC.CHAP ---
Pastoral Care Encounter/Spiritual Assessment Type of Contact [] Declined call out operator visit [] Patient/Family/Request visit [] Outpatient visit [] Follow-up visit [] Physician referral [] Code/Alert [x] Routine visit [] Staff referral [] Actively dying [] Patient sleeping [] Family support [] [] Out of room [] Palliative care [] [] Receiving care in room [] Pre-surgical visit [] Trauma [] Long length of stay [] ICU visit [x] Other: Relational/Emotional Strength [] Patient feels connected with others/family/visitors/staff [] Distress [] Loneliness/isolation [] Abandonment Spirituality of Patient [] Person of Angella [] Attends Religious of their Angella [x] Believes in Prayer [] Reads Bible or Advent materials [] There are Spiritual issues to be addressed Submarine Operator Interventions [] Prayer [] Active listening [] Non-anxious presence [] Spiritual/emotional support [] Crisis/trauma care [] Spiritual counseling [] Bereavement support [] Provided bereavement packet [] Provided Bible/devotional materials [] Provided toy/stuffed animal, coloring book to patient or family member [] Provided Communion [] Anointing/Hubbard [] Salvation [x] Completed spiritual assessment [] Other: Impact on Illness or Injury [] Angry [] Fearful [] Anxious [] Often cries [] Exhaustion [] Unable to work [] Unable to attend jehovah's witness [] Unable to walk/stand [] Unable to read [] Unable to drive [] Unable to eat/drink [] Unable to sleep [] Unable to be with family [] Patient intubated [] Other: Summary patient having physical therapy... walker, setting on the side of bed. Broken Hip Time spent with patient 10min
--- NOTE | 2019-08-30 11:46 | PC.RESP ---
Therapist called to another floor for emergency, pt in no distress per nursing, will give tx at next scheduled.
--- NOTE | 2019-08-30 12:51 | PM.PN ---
Subjective Subjective: Interval history: Postop day 1. Examination patient lying comfortably in bed. Just finished physical therapy and is believed back in bed. States her pain is well controlled. States pain is more in her legs than her hips. Denies of having any nausea, vomiting, chest pain, shortness of breath. Dressing changed by Dr. Rodriguez earlier in the day. Labs and vitals noted. Vitals/I&O/Wt Last Vital Signs Temp 98.5 F 08/30/19 11:27 Pulse 83 08/30/19 11:27 Resp 18 08/30/19 11:27 BP 90/52 08/30/19 11:27 Pulse Ox 96 08/30/19 11:27 08/29/19 08/30/19 08/30/19 22:59 06:59 14:59 Intake Total 650 / 1700 1050 / 2750 240 / 240 Output Total 700 / 1500 800 / 2300 Balance -50 / 200 250 / 450 240 / 240 Weight last 48 hrs Weight 98.883 kg Physical Exam Narrative: EXAM NARRATIVE: General: No acute distress, AO x3 HEENT: PERRLA, pupils bilaterally equal and reactive Chest: Normal vesicular breath sounds, no added sounds, equal good air entry bilaterally CVS: S1-S2 regular, no murmurs, no tachycardia, no gallops, no rubs Abdomen: Soft, nontender, no organomegaly, bowel sounds present Neuro: No focal deficits, no facial deformity, AO x3, power 5/5 in all limbs Extremities: Surgical dressing present. Urinary Catheter Management^: Akins: Cath Placed During This Visit: yes Urinary Catheter Date of Insertion: 08/29/19 Urinary Catheter Time of Insertion: 07:15 Data : 08/30/19 05:53 08/30/19 05:53 Micro: Microbiology 08/29/19 07:07 Urine Culture - Preliminary Urine,Clean Catch Gram Negative Rods A&P Assessment and plan (1) Closed intertrochanteric fracture of right hip: Status: Acute (2) Hip fracture, right: Status: Acute Qualifiers: Encounter type: initial encounter Fracture type: closed Qualified Code(s): S72.001A - Fracture of unspecified part of neck of right femur, initial encounter for closed fracture (3) Anemia: Status: Acute (4) UTI (urinary tract infection): Status: Acute (5) Parkinson disease: Status: Acute (6) Asthma: Status: Acute Additional A&P Information Closed intertrochanteric fracture of the right hip: Post-ORIF. Postop day 1. Xarelto for anticoagulation as per Dr. Rodriguez. Continue with physical therapy. Calcium 8.0. Check Vit D, PTH Patient already on oral vitamin D supplementation. Percocet for pain, Toradol every 6 hours as needed for pain. Anemia: Anemia today most likely blood loss. Check iron panel. We will repeat hemoglobin and hematocrit later in the afternoon around 2 PM. If hemoglobin below 8 we will plan to consult the patient. Parkinsonism: Continue with home dose of carbidopa. UTI: Continue with ceftriaxone 1 g daily. We will de-escalate antibiotics as per the blood culture and urine culture results. Urine culture for now growing 60-80,000 gram-negative rods. Asthma: DuoNeb's every 6 hours. Continue chronic medications like carbidopa, magnesium, oxybutynin, ropinirole Xarelto. Regular diet. Full code. Protonix for PUD prophylaxis. Dispo: Patient will be most likely want to go home with home health. Attestations Medical Necessity Statement*: Closed intertrochanteric fracture of right hip, post-ORIF day 1 Time Spent in Patient Care: 16 - 35 minutes Coding Level of Care Code Acute Machinist Apprentice Wood for Christel Fabian Diagnoses Closed intertrochanteric fracture of right hip S72.141A Hip fracture, right S72.001A Encounter type: initial encounter Fracture type: closed Anemia D64.9 UTI (urinary tract infection) N39.0 Parkinson disease G20 Asthma J45.909
[2019-08-30 13:33] LABS: 25 Hydroxy Vitamin D 24 ng/mL (30-100)
[2019-08-30 13:53] LABS: Iron 51 ug/dL (37-145); Percent Saturation 18.6 % (20-50); Total Iron Binding Capacity 274 mcg/dl; Unsaturated Iron Binding 223 ug/dL (112-347)
--- NOTE | 2019-08-30 15:19 | P.PN_ITS ---
Subjective Subjective: Interval history: 58-year-old white female postoperative day 1 status post open reduction internal fixation using a short intramedullary nail with proximal and distal interlocking. Patient with minimal complaints of right hip pain today. She has more discomfort from neuropathy in her feet then postoperative discomfort in her right hip. She has no complaints of chest pain or shortness of breath. No cough. Appetite is good. No nausea or vomiting. Vitals/I&O/Wt Last Vital Signs Temp 98.5 F 08/30/19 11:27 Pulse 83 08/30/19 11:27 Resp 18 08/30/19 11:27 BP 90/52 08/30/19 11:27 Pulse Ox 96 08/30/19 11:27 08/30/19 08/30/19 08/30/19 06:59 14:59 22:59 Intake Total 1050 / 2750 1233.333 / 1233.333 0 / 1233.333 Output Total 800 / 2300 Balance 250 / 450 1233.333 / 1233.333 0 / 1233.333 Weight last 48 hrs Weight 218 lb Physical Exam Const: COMMON NORMALS: no apparent distress, oriented x3 and healthy appearing NUTRITIONAL APPEARANCE: obese Resp: COMMON NORMALS: normal respiratory effort and clear to auscultation bilaterally AUSCULTATION: clear to auscultation bilaterally Cardio: COMMON NORMALS: regular rate, regular rhythm, S1 normal heart sound and S2 normal heart sound RATE: regular rate RHYTHM: regular rhythm HEART SOUNDS: S1 normal and S2 normal GI: COMMON NORMALS: normal to inspection, nondistended, normoactive bowel sounds, soft to palpation and non-tender PALPATION: Yes soft Extremity: RIGHT LOWER EXTREMITY: Yes hip joint (Drain removed,dressing otherwise clean dry and intact. No calf tenderness ) Neuro: COMMON NORMALS: oriented x3 Urinary Catheter Management^: Akins: Cath Placed During This Visit: yes Urinary Catheter Date of Insertion: 08/29/19 Urinary Catheter Time of Insertion: 07:15 Data : 08/30/19 05:53 08/30/19 05:53 Micro: Microbiology 08/29/19 07:07 Urine Culture - Preliminary Urine,Clean Catch Gram Negative Rods A&P Assessment and plan (1) Closed intertrochanteric fracture of right hip: mobilize weightbearing as tolerated right lower extremity Discharge planning home with home health Drain pulled today Finish perioperative antibiotics Continue VTE prophylaxis with mobilization, pneumatic compression devices and pharmacologic-Xarelto 10mg po daily for 14 days Status: Acute (2) Anemia: Status: Acute Attestations Medical Necessity Statement*: patient requires continued inpatient level care following ORIF right intertrochanteric hip fracture. Discharge planning in progress. Hopefully as soon as tomorrow if doing well she can be transferred home with home health follow-up in the office in 2 weeks for wound check and repeat x-rays of the right hip Time Spent in Patient Care: 16 - 35 minutes (>than 50% of time spent in counselling and/or direct pt care on unit) . Coding Level of Care Code Acute Executive Personal Assistant for g Fwd Exam Detailed Diagnoses Closed intertrochanteric fracture of right hip S72.141A Anemia D64.9
[2019-08-30] MEDS: neomycin-poly-bacitracin oint 28 gm 1 APPLIC TOPICAL (17:28)
[2019-08-30 18:28] LABS: Hematocrit 28.2 % (37.0-47.0); Hemoglobin 8.4 g/dL (11.5-15.3)
[2019-08-30 20:54] LABS: Parathyroid Hormone 135.6 pg/mL (15-65)
[2019-08-30] MEDS: ropinirole 1 mg Tablet PO (22:14)
[2019-08-31] VITALS (15 sets, daily range): BP systolic 109–134; BP diastolic 70–80; PULSE 85–101; RESP 15–20; TEMP 36.4–37.5; O2SAT 91–98
[2019-08-31] MEDS: ipratropium-albuterol 3 mL Neb INHALATION ×4 (02:25→20:20)
[2019-08-31] MEDS: ketorolac 10 mg Tablet PO (04:21)
[2019-08-31 05:20] LABS: Basophils % 0.4 %; Eosinophils # 0.2 10^3/uL (0.0-0.8); Hematocrit 28.4 % (37.0-47.0); Hemoglobin 8.4 g/dL (11.5-15.3); Lymphocytes # 1.3 10^3/uL (0.8-4.8); Lymphocytes % 14.2 %; Mean Corpuscular HGB Conc 29.6 g/dL (30.0-36.0); Mean Corpuscular Hemoglobin 26.6 pg (28.0-34.0); Mean Corpuscular Volume 89.9 fL (81-99); Mean Platelet Volume 12.5 fL (7.4-10.4); Monocytes # 0.7 10^3/uL (0.2-0.9); Monocytes % 7.6 %; Neutrophils % 74.7 %; Nucleated Red Blood Cells % 0 %; Platelet Count 155 10^3/cmm (130-400); Red Blood Count 3.16 10^6/uL (4.1-5.3); Red Cell Distribution Width 14.8 % (12.1-15.1); White Blood Count 9.4 10^3/uL (4.0-10.0)
[2019-08-31] MEDS: sodium chloride 0.9% 1,000 ML 100 ML IV ×2 (06:10→20:24)
[2019-08-31] MEDS: carbidopa-levodopa 25-250mg Tablet 1 EACH PO ×5 (06:10→20:24)
[2019-08-31] MEDS: cholecalciferol (vitamin D3) 1,000 unit Tablet 1000 UNIT PO (08:01)
[2019-08-31] MEDS: pantoprazole DR 40 mg Tablet PO ×2 (08:01→17:05)
[2019-08-31] MEDS: multivitamin therapeutic Tablet 1 TAB PO (08:01)
[2019-08-31] MEDS: rivaroxaban 10 mg Tablet PO (08:01)
[2019-08-31] MEDS: bisacodyl 5 mg Tablet 10 MG PO (08:02)
[2019-08-31] MEDS: gabapentin 100 mg Capsule PO ×3 (08:02→20:24)
[2019-08-31] MEDS: iron polysaccharide complex 150 mg Capsule PO ×2 (08:02→17:05)
[2019-08-31] MEDS: oxyCODONE-APAP 5-325 mg Tablet 1 TAB PO ×3 (08:03→20:27)
[2019-08-31] MEDS: lactulose oral liq 20 gm/30 mL UDC 10 GM PO (08:03)
[2019-08-31] MEDS: chlorhexidine gluconate 0.12% Btl 473 mL 30 ML MUCOUS MEM ×4 (08:03→20:28)
[2019-08-31] MEDS: ropinirole 1 mg Tablet 0.5 MG PO ×2 (08:48→16:54)
[2019-08-31] MEDS: neomycin-poly-bacitracin oint 28 gm 1 APPLIC TOPICAL ×2 (08:49→17:06)
[2019-08-31] MEDS: cefTRIAXone 1,000 MG in sodium chloride 0.9% (plus) 50 ML 100 MG IV (10:37)
--- NOTE | 2019-08-31 13:24 | P.PN_ITS ---
Subjective Subjective: Interval history: Worked with PT this morning, however requiring multiple person assist to ambulate. Will likely benefit from SNF and more aggressive rehab prior to transition back Medications: Reviewed: Yes Vitals/I&O/Wt Last Vital Signs Temp 97.6 F 08/31/19 11:20 Pulse 88 08/31/19 11:20 Resp 18 08/31/19 11:20 BP 109/71 08/31/19 11:20 Pulse Ox 95 08/31/19 11:20 08/30/19 08/31/19 08/31/19 22:59 06:59 14:59 Intake Total 306.667 / 7094.996 8560.333 / 3033.333 530 / 530 Output Total 250 / 250 350 / 600 Balance 56.667 / 1530.000 903.333 / 2433.333 530 / 530 Physical Exam Narrative: EXAM NARRATIVE: GEN: Awake, alert and oriented, no acute distress CVS: S1S2 N RS: CTA B/L Abd: Soft, nt/nd , bs+ PRICING SUPERVISOR: no new gross motor deficits Urinary Catheter Management^: Akins: Cath Placed During This Visit: yes Urinary Catheter Date of Insertion: 08/29/19 Urinary Catheter Time of Insertion: 07:15 Data : 08/31/19 04:34 08/30/19 05:53 Micro: Microbiology 08/29/19 07:07 Urine Culture - Final Urine,Clean Catch Klebsiella pneumoniae A&P Assessment and plan (1) Closed intertrochanteric fracture of right hip: Status: Acute Qualifiers: Encounter type: subsequent encounter Fracture alignment: nondisplaced Fracture healing: with routine healing Qualified Code(s): S72.144D - Nondisplaced intertrochanteric fracture of right femur, subsequent encounter for closed fracture with routine healing (2) Hip fracture, right: Status: Acute Qualifiers: Encounter type: initial encounter Fracture type: closed Qualified Code(s): S72.001A - Fracture of unspecified part of neck of right femur, initial encounter for closed fracture (3) Anemia: Status: Acute Qualifiers: Anemia type: other cause Other causes of anemia: other cause, not classified Qualified Code(s): D64.89 - Other specified anemias (4) UTI (urinary tract infection): Status: Acute (5) Parkinson disease: Status: Acute (6) Asthma: Status: Acute Additional A&P Information #Closed intertrochanteric fracture of the right hip: Post-ORIF. Postop day 2. Continue with physical therapy.Will need more aggressive rehab as appears significantly deconditioned, requiring multiperson assist today Percocet for pain, Toradol every 6 hours as needed for pain. # Anemia: Acute on chronic anemia, stable Hb at 8.4 today If hemoglobin below 8 we will plan to transfuse PRBC Currently hemodynamically stable # Parkinsonism: Continue with home dose of carbidopa. # UTI: Continue with ceftriaxone 1 g daily. No current symptoms. Asthma: DuoNeb's every 6 hours. Continue chronic medications like carbidopa, magnesium, oxybutynin, ropinirole DVT ppx: Xarelto. Regular diet. Full code. Protonix for PUD prophylaxis. Dispo: D/c to SNF ideally preferred Attestations Medical Necessity Statement*: patient recommended SNF placement given deconditioning. Process started Coding Level of Care Code Acute E Commerce Retailer for [facility] Fwjessy Diagnoses Closed intertrochanteric fracture of right hip S72.144D Encounter type: subsequent encounter Fracture alignment: nondisplaced Fracture healing: with routine healing Hip fracture, right S72.001A Encounter type: initial encounter Fracture type: closed Anemia D64.89 Anemia type: other cause Other causes of anemia: other cause, not classified UTI (urinary tract infection) N39.0 Parkinson disease G20 Asthma J45.909
--- NOTE | 2019-08-31 13:31 | P.PN_ITS ---
Subjective Subjective: Interval history: 58-year-old white female postoperative day 2 status post ORIF right intertrochanteric hip fracture. She has no complaints of chest pain shortness of breath, productive cough. She has minimal complaints of postoperative discomfort. Nursing and physical therapy report that the patient requires significant assistance in order to transfer. The recommendation would be the patient spend a brief time in rehabilitation prior to going home. This was discussed with the patient the bedside today. She reported go home but she understands the situation and is willing to be transferred for rehabilitation prior to going home even if just for 1-2 weeks. Vitals/I&O/Wt Last Vital Signs Temp 97.6 F 08/31/19 11:20 Pulse 88 08/31/19 11:20 Resp 18 08/31/19 11:20 BP 109/71 08/31/19 11:20 Pulse Ox 95 08/31/19 11:20 08/30/19 08/31/19 08/31/19 22:59 06:59 14:59 Intake Total 306.667 / 4282.091 0104.333 / 3033.333 530 / 530 Output Total 250 / 250 350 / 600 Balance 56.667 / 1530.000 903.333 / 2433.333 530 / 530 Physical Exam Const: COMMON NORMALS: no apparent distress NUTRITIONAL APPEARANCE: overweight Neck/C-Spine: COMMON NORMALS: no JVD Resp: COMMON NORMALS: normal respiratory effort EFFORT & INSPECTION: Yes able to speak in complete sentences Cardio: COMMON NORMALS: no JVD, regular rate and regular rhythm RATE: regular rate RHYTHM: regular rhythm Extremity: RIGHT LOWER EXTREMITY: Yes hip joint (incisions intact with no drainage or erythema, drain site w/ scant drainage) and Yes lower leg Right lower leg: Yes special tests Right lower leg special tests: Alejandra's sign: Negative LEFT LOWER EXTREMITY: Yes lower leg Left lower leg: Yes special tests Left lower leg special tests: Alejandra's sign: Negative Urinary Catheter Management^: Akins: Cath Placed During This Visit: yes Urinary Catheter Date of Insertion: 08/29/19 Urinary Catheter Time of Insertion: 07:15 Data : 08/31/19 04:34 08/30/19 05:53 Micro: Microbiology 08/29/19 07:07 Urine Culture - Final Urine,Clean Catch Klebsiella pneumoniae A&P Assessment and plan (1) Closed intertrochanteric fracture of right hip: postoperative intravenous antibiotics have finished. incision healing nicely Dressing change today-T[place]a island dressing placed over drain site no dressing required once drain site has fully closed. Other surgical incisions then closed with skin glue and required no dressings at this time as there is no drainage. Patient continues on Xxarelto for VTE prophylaxis Patient is weightbearing as tolerated Orthopedic discharge prescriptions sent to [facility] to contact family to tumbling and rolling supervisor to take to skilled facility Follow up in office in 2 weeks time Contact me if any questions or concerns Status: Acute Qualifiers: Encounter type: subsequent encounter Fracture alignment: nondisplaced Fracture healing: with routine healing Qualified Code(s): S72.144D - Nondisplaced intertrochanteric fracture of right femur, subsequent encounter for closed fracture with routine healing (2) Anemia: Status: Acute Qualifiers: Anemia type: other cause Other causes of anemia: other cause, not classified Qualified Code(s): D64.89 - Other specified anemias Attestations Medical Necessity Statement*: discharge planning in progress to skilled nurs ing facility. Patient to be discharged when felt medically stable. Patient stable from orthopedic perspective for transfer to senior living facility for rehabilitation Coding Level of Care Code Acute Scarfer Operator for [facility] Fwd Diagnoses Closed intertrochanteric fracture of right hip S72.144D Encounter type: subsequent encounter Fracture alignment: nondisplaced Fracture healing: with routine healing Anemia D64.89 Anemia type: other cause Other causes of anemia: other cause, not classified
[2019-08-31] MEDS: ropinirole 1 mg Tablet PO (20:24)
[2019-09-01] VITALS (23 sets, daily range): BP systolic 111–146; BP diastolic 58–87; PULSE 90–104; RESP 14–18; TEMP 36.4–37.1; O2SAT 88–100
[2019-09-01 04:02] LABS: Basophils % 0.2 %; Eosinophils # 0.2 10^3/uL (0.0-0.8); Eosinophils % 2.6 %; Hematocrit 24.4 % (37.0-47.0); Hemoglobin 7.2 g/dL (11.5-15.3); Lymphocytes # 1.4 10^3/uL (0.8-4.8); Lymphocytes % 16.9 %; Mean Corpuscular HGB Conc 29.5 g/dL (30.0-36.0); Mean Corpuscular Hemoglobin 26.3 pg (28.0-34.0); Mean Corpuscular Volume 89.1 fL (81-99); Mean Platelet Volume 12.3 fL (7.4-10.4); Monocytes # 0.6 10^3/uL (0.2-0.9); Monocytes % 7.5 %; Neutrophils # 5.8 10^3/uL (1.8-7.7); Neutrophils % 71.9 %; Nucleated Red Blood Cells % 0 %; Platelet Count 142 10^3/cmm (130-400); Red Blood Count 2.74 10^6/uL (4.1-5.3); White Blood Count 8.1 10^3/uL (4.0-10.0)
[2019-09-01 04:13] LABS: Alanine Aminotransferase < 5 U/L (0-33); Alkaline Phosphatase 88 IU/L (35-105); Anion Gap 9.2 (5-19); Aspartate Amino Transferase 31 U/L (0-32); Blood Urea Nitrogen 9 mg/dL (6-20); Calcium 7.8 mg/dL (8.5-10.5); Carbon Dioxide 29 mmol/L (22-29); Chloride 106 mmol/L (98-107); Creatinine Clr Calc Pharmacy 122.7002; Globulin 2.4 g/dL (1.3-4.6); Glucose 114 mg/dL (65-115); Osmolality Calculated 287 mOsm/kg (285-295); Potassium 4.2 mmol/L (3.5-5.1); Sodium 140 mmol/L (136-145); Total Bilirubin 0.5 mg/dL (0.15-1.2); Total Protein 5.4 g/dL (6.6-8.7)
[2019-09-01] MEDS: oxyCODONE-APAP 5-325 mg Tablet 1 TAB PO ×4 (05:00→18:11)
[2019-09-01] MEDS: carbidopa-levodopa 25-250mg Tablet 1 EACH PO ×5 (05:01→21:37)
[2019-09-01] MEDS: sodium chloride 0.9% 1,000 ML 100 ML IV (05:01)
--- NOTE | 2019-09-01 06:38 | PC.NURSE ---
Got patient up to chair with sit to stand with moderate assistance. Patient tolerated well and helped us with standing.
[2019-09-01] MEDS: cholecalciferol (vitamin D3) 1,000 unit Tablet 1000 UNIT PO (08:25)
[2019-09-01] MEDS: rivaroxaban 10 mg Tablet PO (08:25)
[2019-09-01] MEDS: iron polysaccharide complex 150 mg Capsule PO ×2 (08:25→17:28)
[2019-09-01] MEDS: multivitamin therapeutic Tablet 1 TAB PO (08:25)
[2019-09-01] MEDS: gabapentin 100 mg Capsule PO ×3 (08:25→21:37)
[2019-09-01] MEDS: ropinirole 1 mg Tablet 0.5 MG PO ×2 (08:25→17:28)
[2019-09-01] MEDS: chlorhexidine gluconate 0.12% Btl 473 mL 30 ML MUCOUS MEM ×4 (08:26→21:38)
[2019-09-01] MEDS: pantoprazole DR 40 mg Tablet PO ×2 (08:26→17:28)
[2019-09-01] MEDS: ipratropium-albuterol 3 mL Neb INHALATION ×3 (09:04→21:24)
[2019-09-01] MEDS: cefTRIAXone 1,000 MG in sodium chloride 0.9% (plus) 50 ML 100 MG IV (11:30)
--- NOTE | 2019-09-01 12:25 | PC.OT ---
OT TREATMENT ATTEMPTED TWICE. LUNCH TRAY HAD JUST BEEN DELIVERED AT FIRST ATTEMPT. AT SECOND ATTEMPT, THE PATIENT WAS CONTINUING TO EAT LUNCH AND JUST GETTING BLOOD STARTED. NURSING REQUESTS TO HOLD UNTIL AFTER 3 PM
[2019-09-01] MEDS: sodium chloride 0.9% (100 ml) 100 ML 10 ML (12:26)
--- NOTE | 2019-09-01 12:27 | P.PN_ITS ---
Subjective Subjective: Interval history: continues to work with PT, no acute complaints. Hb drop to 7.2 today, blood transfusion ordered. 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 EXT: surgical site appears healthy, no gross cellulitic changes Urinary Catheter Management^: Akins: Cath Placed During This Visit: yes Urinary Catheter Date of Insertion: 08/29/19 Urinary Catheter Time of Insertion: 07:15 Data : 09/01/19 03:15 09/01/19 03:15 Micro: Microbiology 08/29/19 07:07 Urine Culture - Final Urine,Clean Catch Klebsiella pneumoniae A&P Assessment and plan (1) Closed intertrochanteric fracture of right hip: Status: Acute Qualifiers: Encounter type: subsequent encounter Fracture alignment: nondisplaced Fracture healing: with routine healing Qualified Code(s): S72.144D - Nondisplaced intertrochanteric fracture of right femur, subsequent encounter for closed fracture with routine healing (2) Hip fracture, right: Status: Acute Qualifiers: Encounter type: initial encounter Fracture type: closed Qualified Code(s): S72.001A - Fracture of unspecified part of neck of right femur, initial encounter for closed fracture (3) Anemia: Status: Acute Qualifiers: Anemia type: other cause Other causes of anemia: other cause, not classified Qualified Code(s): D64.89 - Other specified anemias (4) UTI (urinary tract infection): Status: Acute (5) Parkinson disease: Status: Acute (6) Asthma: Status: Acute Additional A&P Information #Closed intertrochanteric fracture of the right hip: Post-ORIF. Postop day 3. Continue with physical therapy.Working with PT, doing better today. Percocet for pain, Toradol every 6 hours as needed for pain.Currently well controlled # Anemia: Acute on chronic anemia, dropped to 7.2 today ordered fone one uniti PRBC transfusion today Currently hemodynamically stable # Parkinsonism: Continue with home dose of carbidopa. # UTI: Continue with ceftriaxone 1 g daily. No current symptoms. Asthma: DuoNeb's every 6 hours. Continue chronic medications like carbidopa, magnesium, oxybutynin, ropinirole DVT ppx: Xarelto. Regular diet. Full code. Protonix for PUD prophylaxis. Dispo: D/c to SNF ideally preferred Attestations Medical Necessity Statement*: anemia requiring blood transfusion today Coding Level of Care Code Acute Ore Charger for [facility] Fwd Diagnoses Closed intertrochanteric fracture of right hip S72.144D Encounter type: subsequent encounter Fracture alignment: nondisplaced Fracture healing: with routine healing Hip fracture, right S72.001A Encounter type: initial encounter Fracture type: closed Anemia D64.89 Anemia type: other cause Other causes of anemia: other cause, not classified UTI (urinary tract infection) N39.0 Parkinson disease G20 Asthma J45.909
[2019-09-01 18:15] LABS: Hematocrit 27.8 % (37.0-47.0); Hemoglobin 8.7 g/dL (11.5-15.3)
[2019-09-01] MEDS: ropinirole 1 mg Tablet PO (21:37)
[2019-09-02] VITALS (18 sets, daily range): BP systolic 109–143; BP diastolic 54–86; PULSE 71–102; RESP 17–18; TEMP 31.7–37.4; O2SAT 90–100
[2019-09-02] MEDS: ipratropium-albuterol 3 mL Neb INHALATION ×2 (03:24→08:49)
[2019-09-02] MEDS: sodium chloride 0.9% 1,000 ML 100 ML IV (04:32)
[2019-09-02] MEDS: carbidopa-levodopa 25-250mg Tablet 1 EACH PO ×4 (04:32→17:27)
[2019-09-02] MEDS: oxyCODONE-APAP 5-325 mg Tablet 1 TAB PO ×3 (04:32→17:30)
[2019-09-02 06:05] LABS: Basophils % 0.4 %; Eosinophils # 0.2 10^3/uL (0.0-0.8); Eosinophils % 2.6 %; Hematocrit 24.8 % (37.0-47.0); Hemoglobin 7.3 g/dL (11.5-15.3); Lymphocytes # 1.2 10^3/uL (0.8-4.8); Lymphocytes % 14.4 %; Mean Corpuscular HGB Conc 29.4 g/dL (30.0-36.0); Mean Corpuscular Hemoglobin 26.3 pg (28.0-34.0); Mean Corpuscular Volume 89.2 fL (81-99); Mean Platelet Volume 11.5 fL (7.4-10.4); Monocytes # 0.6 10^3/uL (0.2-0.9); Monocytes % 7.5 %; Neutrophils # 6.3 10^3/uL (1.8-7.7); Neutrophils % 73.8 %; Nucleated Red Blood Cells % 0 %; Platelet Count 156 10^3/cmm (130-400); Red Blood Count 2.78 10^6/uL (4.1-5.3); White Blood Count 8.6 10^3/uL (4.0-10.0)
[2019-09-02] MEDS: lactulose oral liq 20 gm/30 mL UDC 10 GM PO (08:39)
[2019-09-02] MEDS: ropinirole 1 mg Tablet 0.5 MG PO ×2 (08:40→17:27)
[2019-09-02] MEDS: bisacodyl 5 mg Tablet 10 MG PO (08:40)
[2019-09-02] MEDS: multivitamin therapeutic Tablet 1 TAB PO (08:41)
[2019-09-02] MEDS: chlorhexidine gluconate 0.12% Btl 473 mL 30 ML MUCOUS MEM ×3 (08:41→17:27)
[2019-09-02] MEDS: pantoprazole DR 40 mg Tablet PO ×2 (08:41→17:28)
[2019-09-02] MEDS: iron polysaccharide complex 150 mg Capsule PO ×2 (08:41→17:28)
[2019-09-02] MEDS: gabapentin 100 mg Capsule PO ×2 (08:41→14:05)
[2019-09-02] MEDS: rivaroxaban 10 mg Tablet PO (08:41)
[2019-09-02] MEDS: cholecalciferol (vitamin D3) 1,000 unit Tablet 1000 UNIT PO (08:41)
[2019-09-02] MEDS: neomycin-poly-bacitracin oint 28 gm 1 APPLIC TOPICAL (08:42)
[2019-09-02] MEDS: cefTRIAXone 1,000 MG in sodium chloride 0.9% (plus) 50 ML 100 MG IV (10:57)
--- NOTE | 2019-09-02 12:50 | PC.OT ---
HOLD SKILLED OT DUE TO HGB AT 7.3. WILL ATTEMPT AGAIN TOMORROW.
[2019-09-02] MEDS: sodium chloride 0.9% (100 ml) 100 ML (14:06)
--- NOTE | 2019-09-02 14:10 | P.DS_ITS ---
Discharge Providers Date of Admission: 08/29/19 07:18 Date of Discharge: September 02, 2019 Attending Provider at Admission: Ismael Winters MD Attending Provider at Discharge: Valerie Nathan MD Primary Care Provider: Ricarda Duffy MD Diagnoses at Discharge Discharge Diagnosis (1) Closed intertrochanteric fracture of right hip: Status: Acute Qualifiers: Encounter type: subsequent encounter Fracture alignment: nondisplaced Fracture healing: with routine healing Qualified Code(s): S72.144D - Nondisplaced intertrochanteric fracture of right femur, subsequent encounter for closed fracture with routine healing (2) Hip fracture, right: Status: Acute Qualifiers: Encounter type: initial encounter Fracture type: closed Qualified Code(s): S72.001A - Fracture of unspecified part of neck of right femur, initial encounter for closed fracture (3) Anemia: Status: Acute Problem details: Postop. Baseline hemoglobin 12.5 Qualifiers: Anemia type: other cause Other causes of anemia: other cause, not classified Qualified Code(s): D64.89 - Other specified anemias (4) UTI (urinary tract infection): Status: Acute (5) Parkinson disease: Status: Acute (6) Asthma: Status: Acute Reason for Visit Reason for Visit: Reason For Visit: RIGHT HIP FRACTURE Hospital Course Discharge Summary: Liliana Davis is a 58 year old female with past medical history of parkinsonism, asthma presented to the ER today after she missed her step and fell down the stairs and started having pain in her hip. She was found to have closed intertrochanteric fracture of right hip and underwent Open reduction internal fixation of right intertrochanteric hip fracture treated with intramedullary nail with proximal and distal interlocking on August 29, 2019. Postop course has been notable for postop anemia, with hemoglobin dropped to lowest of 7.0. He has received 2 units of packed red blood cell transfusion. There are no gross signs of hematoma at the site of surgery. There is no complaint of melena. Of note she is on Xarelto for DVT prophylaxis. While ideally at this point would prefer to discontinue Xarelto and start aspirin 325, however patient states that she is allergic to aspirin and the reaction is anaphylaxis. Therefore we cannot use this medication. For now we will continue Xarelto, with close watching for any signs of bleeding. Hemoglobin should also be repeated every day over the next 5 days to ensure she is not dropping any further. Physical Exam Narrative: EXAM NARRATIVE: GEN: Awake, alert and oriented, no acute distress CVS: S1S2 N RS: CTA B/L Abd: Soft, nt/nd , bs+ Urinary Catheter Management^: Akins: Cath Placed During This Visit: yes Urinary Catheter Date of Insertion: 08/29/19 Urinary Catheter Time of Insertion: 07:15 Discharge Data Data Completed and Pending: Completed Studies During Hospitalization Category Date Time Status XR chest 1V ligia ble [id number] Stat Exams 08/29/19 06:19 Completed XR hip RT 2-3V wo /w pel* [id number] Rout ine Exams 08/29/19 Completed XR hip RT 2-3V wo /w pel* [id number] Stat Exams 08/29/19 06:05 Completed Pending at discharge Category Date Time Status Immunochemical Fe dolores OCB Routine Lab 09/02/19 11:07 Uncollected Leukocyte Reduced RBC Routine Lab 09/01/19 10:03 Results Type and Screen R outine Lab 09/01/19 10:03 Results Labs from last 24 hours 09/02/19 09/02/19 09/01/19 12:20 05:47 17:56 WBC 8.6 RBC 2.78 L Hgb 7.3 L 8.7 L Hct 24.8 L 27.8 L MCV 89.2 MCH 26.3 L MCHC 29.4 L RDW 15.0 Plt Count 156 MPV 11.5 H Neut % (Auto) 73.8 Lymph % (Auto) 14.4 [place] % (Auto) 7.5 Eos % (Auto) 2.6 Baso % (Auto) 0.4 Neut # (Auto) 6.3 Lymph # (Auto) 1.2 [place] # (Auto) 0.6 Eos # (Auto) 0.2 Baso # (Auto) 0.0 Nucleated RBC % (a uto) 0 Nucleated RBCs # 0.0 Blood Type B Negative Rho(D) Type Negaive Antibody Screen Negative Crossmatch See Detail 08/29/19 09:18 WBC RBC Hgb Hct MCV MCH MCHC RDW Plt Count MPV Neut % (Auto) Lymph % (Auto) [place] % (Auto) Eos % (Auto) Baso % (Auto) Neut # (Auto) Lymph # (Auto) [place] # (Auto) Eos # (Auto) Baso # (Auto) Nucleated RBC % (a uto) Nucleated RBCs # Blood Type Rho(D) Type Antibody Screen Crossmatch See Detail Vitals: Last Vital Signs Temp 99.4 F 09/02/19 11:07 Pulse 71 09/02/19 11:07 Resp 18 09/02/19 11:07 BP 143/76 09/02/19 11:07 Pulse Ox 93 09/02/19 11:07 Discharge Plan Discharge Patient Disposition: Xfer SNF Condition: Stable Prescriptions: New oxycodone-acetaminophen 5-325 mg tablet 1 tab PO Q4H PRN (Reason: pain) Qty: 40 RF: 0 cholecalciferol (vitamin D3) [Vitamin D3] 25 mcg (1,000 unit) Tablet 1,000 unit PO DAILY 30 Days Qty: 30 RF: 0 polysaccharide iron complex [Ferrex 150] 150 mg iron Capsule 150 mg PO BIDWM 30 Days Qty: 60 RF: 0 bisacodyl 5 mg Tablet,Delayed Release (Dr/Ec) 10 mg PO DAILY PRN (Reason: Constipation) 30 Days Qty: 30 RF: 0 ketorolac 10 mg Tablet 10 mg PO Q8H PRN (Reason: Moderate Pain) 10 Days Qty: 30 RF: 0 Xarelto 10 mg tablet 10 mg PO DAILY Qty: 14 RF: 0 Triple Antibiotic 3.5mg-400 unit- 5,000 unit/gram Ointment 1 applic topical BID 10 Days Qty: 1 RF: 0 Thera 400 mcg Tablet 1 tab PO DAILY 30 Days Qty: 30 RF: 0 Continued carbidopa-levodopa [Sinemet] 25-250 mg tablet 1 tab PO .COMPLEX RF: 0 omeprazole 40 mg capsule,delayed release(DR/EC) 40 mg PO BID RF: 0 oxybutynin chloride 10 mg tablet extended release 24hr 10 mg PO ONCE RF: 0 Symbicort 160-4.5 mcg/actuation HFA aerosol inhaler 2 puff INHALATION BID RF: 0 albuterol sulfate 90 mcg/actuation HFA aerosol inhaler 2 puff INHALATION Q6H PRN (Reason: Shortness Of Breath) RF: 0 Zyrtec 10 mg capsule 10 mg PO ONCE RF: 0 magnesium oxide 400 mg magnesium capsule 400 mg PO ONCE RF: 0 calcium carbonate-vitamin D3 [Calcium with Vitamin D] 600 mg(1,500mg) -400 unit tablet 1 tab PO BID RF: 0 triamcinolone acetonide [Nasacort] 55 mcg aerosol,spray 1 spray INTRANASAL BID RF: 0 ropinirole 0.5 mg tablet 0.5 mg PO .COMPLEX Qty: 120 RF: 6 gabapentin 100 mg Capsule 100 mg PO TID RF: 0 Calcium 600 600 mg calcium (1,500 mg) tablet RF: 0 Discontinued tramadol 50 mg tablet 50 mg PO ONCE PRN (Reason: Pain) RF: 0 Discharge Orders: Discharge Order (Routine); Ordered 08/31/19 Ordered By: Francisco Rodriguez Referrals: [facility] [place] [facility] ([facility]) [Outside] Ricarda Duffy MD [Primary Care Provider] - 09/06/19 10:00 am Francisco Rodriguez DO [Physician] - 09/22/19 1:15 pm (Follow-up with Dr. Rodriguez for wound check and repeat x-rays of the right hip following intramedullary nailing of right intertrochanteric hip fracture. Call for appointment date and time please) Discharge Activity: Increase activity as tolerated Patient Instructions: Oxycodone/Acetaminophen (By mouth), Rivaroxaban (By mouth), Hip Arthroscopy (GEN) Activity Restrictions/Additional Instructions: Weightbearing as tolerated right lower extremity May shower when no drainage from drain site on anterior aspect of right thigh Perform ankle pumps and isometric contractions of calf thigh and gluteal muscles to decrease risk of blood clots and deconditioning. May progress from walker to cane when felt safe to do so as directed by home physical therapist Discharge Attestations Time Spent in Discharge Care*: greater than 30 min Quality Metrics Clinical Quality Measures During this hospital stay, did patient experience: None Coding Level of Care Code Acute Chainstitch Seat Joiner for g Fwd Diagnoses Closed intertrochanteric fracture of right hip S72.144D Encounter type: subsequent encounter Fracture alignment: nondisplaced Fracture healing: with routine healing Hip fracture, right S72.001A Encounter type: initial encounter Fracture type: closed Anemia D64.89 Anemia type: other cause Other causes of anemia: other cause, not classified UTI (urinary tract infection) N39.0 Parkinson disease G20 Asthma J45.909
--- NOTE | 2019-09-02 14:40 | PC.NURSE ---
blood unit of blood started
== END 2019-09-02 18:15 | disposition skilled nursing facility (03) | DRG 481 ==
LOC: ER 07:35 → MEDSURG 07:36
PROVIDERS: Orthopaedic Surgery; Admitting Provider Student in an Organized Health Care Education/Training Program; Emergency Provider Family Medicine; Family Provider Internal Medicine; PCP Internal Medicine; Visit Provider Student in an Organized Health Care Education/Training Program
PROC: 0SS904Z Reposition Right Hip Joint with Internal Fixation Device, Open Approach (ICD-10-PCS; CPT 27245; principal; 2019-08-29 10:00)
DX: S72.141A Displaced intertrochanteric fracture of right femur, initial encounter for closed fracture (principal); N39.0 Urinary tract infection, site not specified; G20 Parkinson's disease; J45.909 Unspecified asthma, uncomplicated; D64.9 Anemia, unspecified; W10.9XXA Fall (on) (from) unspecified stairs and steps, initial encounter; Y92.008 Other place in unspecified non-institutional (private) residence as the place of occurrence of the external cause
CPT/HCPCS: 12345; 36415; 36430; 51702; 51798; 71045; 73502; 76000; 80053; 81001; 82274; 82306; 82310; 83540; 83550; 83970; 85014; 85018; 85025; 85610; 86850; 86900; 86920; 87077; 87086; 87186; 94640; 96375; 97110; 97162; 97167; 97530; 97535; 99283; C1713; J0330; J0696; J0697; J1100; J1170; J1580; J2405; J2710; J3010; J3490; J7030; P9016

== ENCOUNTER 2019-09-04 11:40 | Outpatient (CLI) | payer OTHER, SELFPAY ==
[2019-09-04 12:04] LABS: Basophils % 0.1 %; Eosinophils # 0.3 10^3/uL (0.0-0.8); Eosinophils % 4.2 %; Hematocrit 31.4 % (37.0-47.0); Hemoglobin 9.4 g/dL (11.5-15.3); Lymphocytes # 1.4 10^3/uL (0.8-4.8); Lymphocytes % 18.9 %; Mean Corpuscular HGB Conc 29.9 g/dL (30.0-36.0); Mean Corpuscular Hemoglobin 27.2 pg (28.0-34.0); Mean Platelet Volume 11.4 fL (7.4-10.4); Monocytes # 0.6 10^3/uL (0.2-0.9); Monocytes % 8.5 %; Neutrophils # 4.8 10^3/uL (1.8-7.7); Neutrophils % 66.6 %; Nucleated Red Blood Cells % 0 %; Platelet Count 175 10^3/cmm (130-400); Red Blood Count 3.45 10^6/uL (4.1-5.3); Red Cell Distribution Width 16.2 % (12.1-15.1); White Blood Count 7.2 10^3/uL (4.0-10.0)
== END 2019-09-04 11:41 | disposition home or self-care (01) ==
PROVIDERS: Family Provider Internal Medicine; PCP Internal Medicine; Visit Provider Physician Assistant
DX: Z01.89 Encounter for other specified special examinations (principal)
CPT/HCPCS: 85025

== ENCOUNTER → 2019-09-22 13:53 | Outpatient (BNVA) | payer OTHER, SELFPAY | PROVIDERS: Family Provider Internal Medicine; PCP Internal Medicine; Visit Provider Orthopaedic Surgery | DX: Z48.89 Encounter for other specified surgical aftercare (principal) | CPT/HCPCS: 73502 ==

== ENCOUNTER 2019-10-04 16:44 | Outpatient (CLI) | payer OTHER, SELFPAY | END 2019-10-04 16:45 | disposition home or self-care (01) | LOC: LAB 16:46 | PROVIDERS: Family Provider Internal Medicine; PCP Internal Medicine; Visit Provider Orthopaedic Surgery | DX: S72.141D Displaced intertrochanteric fracture of right femur, subsequent encounter for closed fracture with routine healing (principal); X58.XXXD Exposure to other specified factors, subsequent encounter | CPT/HCPCS: 87070; 87077; 87186 ==

== ENCOUNTER → 2019-10-06 10:47 | Outpatient (BNVA) | payer OTHER, SELFPAY | PROVIDERS: Family Provider Internal Medicine; PCP Internal Medicine; Visit Provider Orthopaedic Surgery | DX: S72.144A Nondisplaced intertrochanteric fracture of right femur, initial encounter for closed fracture (principal); X58.XXXA Exposure to other specified factors, initial encounter | CPT/HCPCS: 73502 ==

== ENCOUNTER → 2019-10-22 11:36 | Outpatient (BNVA) | payer OTHER, SELFPAY | PROVIDERS: Family Provider Internal Medicine; PCP Internal Medicine; Visit Provider Orthopaedic Surgery | DX: S72.144A Nondisplaced intertrochanteric fracture of right femur, initial encounter for closed fracture (principal); Z48.89 Encounter for other specified surgical aftercare; X58.XXXA Exposure to other specified factors, initial encounter | CPT/HCPCS: 73502; 87070; 87075 ==

== ENCOUNTER → 2019-11-19 10:26 | Outpatient (BNVA) | payer OTHER, SELFPAY | PROVIDERS: Family Provider Internal Medicine; PCP Internal Medicine; Visit Provider Orthopaedic Surgery | DX: S72.001A Fracture of unspecified part of neck of right femur, initial encounter for closed fracture (principal); T81.49XA Infection following a procedure, other surgical site, initial encounter; X58.XXXA Exposure to other specified factors, initial encounter | CPT/HCPCS: 73502 ==

== ENCOUNTER 2020-01-20 08:25 | Outpatient (CLI) | payer OTHER, SELFPAY ==
--- NOTE | 2020-01-20 08:44 | XR_ITS ---
WS: [id number] RIGHT KNEE: 3 VIEW(S) TECHNIQUE: AP, oblique(s) and lateral. HISTORY: KNEE PAIN, S/P FALL COMPARISON: None available. No fracture or dislocation. Mild narrowing of the medial joint space and patellofemoral joint space. No joint effusion. No soft tissue abnormality. XR/XR knee RT 3V* [id number] IMPRESSION: 1. No acute fracture. 2. 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
--- NOTE | 2020-01-20 08:44 | XR_ITS ---
WS: [id number] RIGHT HIP HISTORY: HIP PAIN COMPARISON: None available. Right hip: Status post short intramedullary rodding and gamma nail fixation of a RIGHT proximal femur fracture. Fracture line is still apparent but similar to 11/19/2019. Bones are osteopenic. XR/XR hip RT 2-3V wo/w pel* [id number] IMPRESSION: 1. Status post RIGHT hip ORIF. Fracture line is still apparent but healing. 2. No new fracture.
== END 2020-01-20 08:26 | disposition home or self-care (01) ==
PROVIDERS: Family Provider Internal Medicine; PCP Internal Medicine; Visit Provider Internal Medicine
DX: M25.561 Pain in right knee (principal); M25.551 Pain in right hip; W19.XXXA Unspecified fall, initial encounter; M13.861 Other specified arthritis, right knee
CPT/HCPCS: 73502; 73562

== ENCOUNTER → 2020-02-01 11:16 | Outpatient (BNVA) | payer OTHER, SELFPAY | PROVIDERS: Family Provider Internal Medicine; PCP Internal Medicine; Visit Provider Specialist | DX: G20 Parkinson's disease (principal) | CPT/HCPCS: 99215 ==

== ENCOUNTER 2020-04-10 04:49 | Emergency (ER) | payer OTHER, SELFPAY ==
[2020-04-10 04:57] VITALS: BP 163/90; PULSE 93; RESP 18; TEMP 36.6; O2SAT 97; BMI 32.3
--- NOTE | 2020-04-10 05:19 | CTR_ITS ---
PROCEDURE INFORMATION: Exam: CT Head Without Contrast Exam date and time: 04/10/2020 5:31 AM Age: 59 years old Clinical indication: Injury or trauma; Fall; Abrasion; Eye; Left TECHNIQUE: Imaging protocol: Computed tomography of the head without contrast. Radiation optimization: All CT scans at this facility use at least one of these dose optimization techniques: automated exposure control; mA and/or kV adjustment per patient size (includes targeted exams where dose is matched to clinical indication); or iterative reconstruction. COMPARISON: MR head wo con* [id number] 03/15/2019 4:28 PM RADIATION DOSE METRICS: Total DLP (mGy-cm): 854.17 FINDINGS: Brain: Normal. No hemorrhage. Unremarkable white matter. No mass effect. Cerebral ventricles: No ventriculomegaly. Bones/joints: Unremarkable. No acute fracture. Paranasal sinuses: Visualized sinuses are unremarkable. No fluid levels. Mastoid air cells: Visualized mastoid air cells are well aerated. Soft tissues: There is some soft tissue swelling and bruising seen in the lateral periorbital region on the left. CT/CT head wo con* [id number] IMPRESSION: There are no acute intracranial findings. Radiation Dose CTDIVOL = (mGy): DLP = 854.17 (mGy-cm)
--- NOTE | 2020-04-10 05:19 | CTR_ITS ---
PROCEDURE INFORMATION: Exam: CT Maxillofacial Without Contrast Exam date and time: 04/10/2020 5:31 AM Age: 59 years old Clinical indication: Injury or trauma; Fall; Blunt trauma (contusions or hematomas) and laceration; Orbit/periorbital; Left; Without residual foreign body TECHNIQUE: Imaging protocol: Computed tomography images of the face without contrast. Radiation optimization: All CT scans at this facility use at least one of these dose optimization techniques: automated exposure control; mA and/or kV adjustment per patient size (includes targeted exams where dose is matched to clinical indication); or iterative reconstruction. COMPARISON: No relevant prior studies available. RADIATION DOSE METRICS: Total DLP (mGy-cm): 693.78 FINDINGS: Orbital cavity: Orbits are normal. Globes are unremarkable. Bones/joints: No acute fracture. Paranasal sinuses: Normal. No air-fluid levels. Soft tissues: There is soft tissue swelling and bruising seen in the left maxillary and periorbital regions. CT/CT facial bones wo con* [id number] IMPRESSION: 1. There are no acute osseous findings. 2. Soft tissue swelling and bruising seen in the left maxillary and periorbital regions. Radiation Dose CTDIVOL = (mGy): DLP = 693.78 (mGy-cm)
--- NOTE | 2020-04-10 05:28 | ED_ITS ---
HPI - Fall General: Chief Complaint: Fall Stated Complaint: fall Time Seen by Provider: 04/10/20 05:09 History of Present Illness: HPI Narrative: 59-year-old lady with history of Parkinson's disease. She presents after a fall when she got up to the bathroom. She states that she tripped, with her face landing on a TV stand. She is experiencing pain to the left side of her face with swelling. No decreased vision. No mental status change. complaint: fall Onset (ago): minute(s) Fall from: standing Fall witnessed: no Place fall occurred: home Loss of consciousness: None Prolonged down time: no Symptoms prior to fall: none Context: tripped/slipped Location of injury: head and face Location of injury - extremities: Left: forearm Severity: moderate Associated symptoms-after fall: Reports headache(s); Denies abdominal pain, chest pain, confusion, difficulty walking, lightheadedness or short of breath Review of Systems Const: Denies: fever(s) or chills Card: Denies: chest pain or lightheadedness GI: Denies: abdominal pain Neuro: Reports: headache(s); Denies: difficulty walking or confusion [facility] ED PFSH: Medical History (Updated 04/10/20 @ 06:07 by Fawad Nielsen DO) Asthma Closed intertrochanteric fracture of right hip Superficial postoperative wound infection Social History Smoking and tobacco status: never smoked Alcohol intake: never Physical Exam Const: COMMON NORMALS: no acute distress, patient oriented x3 and alert HENMT: COMMON NORMALS: Normal external nose present FACE & SINUS: edema FACE & SINUS IMAGES: 1. Swelling and ecchymosis. No overt deformity. Extraocular muscle movements intact. NOSE: Normal external nose present and Normal nares present Eye: COMMON NORMALS: Equal, round and reactive pupils present and EOMs intact bilaterally PUPIL: Yes Equal, round and reactive pupils present Neck/C-Spine: GENERAL: Yes trachea midline CERVICAL SPINE: No Cervical spine tenderness Chest: COMMONS NORMALS: normal inspection of the chest Resp: COMMON NORMALS: normal respiratory effort and No use of accessory muscles Cardio: COMMON NORMALS: regular rate and regular rhythm RATE: regular rate RHYTHM: regular rhythm Neuro: COMMON NORMALS: patient oriented x3 SENSORIUM/ORIENTATION: Yes alert Course Vital Signs: Vital signs: Vital Signs Temperature 97.9 F 04/10/20 04:57 Pulse Rate 93 04/10/20 04:57 Respiratory Rate 18 04/10/20 04:57 Blood Pressure 163/90 04/10/20 04:57 Pulse Oximetry 97 04/10/20 04:57 MDM - Fall MDM Narrative: Medical decision making narrative: CTs of the head and facial bones are essentially negative save soft tissue swelling. She appears stable. She is in good spirits. Abrasions/avulsions to the left infraorbital area are covered with Dermabond. Discharge Plan Discharge Patient Disposition: Home Clinical Impression: Contusion of periorbital region, left Qualifiers: Encounter type: initial encounter Qualified Code(s): S05.12XA - Contusion of eyeball and orbital tissues, left eye, initial encounter Avulsion of skin of face Qualifiers: Encounter type: initial encounter Qualified Code(s): S01.80XA - Unspecified open wound of other part of head, initial encounter Condition: Stable Prescriptions: No Action omeprazole 40 mg capsule,delayed release(DR/EC) 40 mg PO BID RF: 0 oxybutynin chloride 10 mg tablet extended release 24hr 10 mg PO ONCE RF: 0 Symbicort 160-4.5 mcg/actuation HFA aerosol inhaler 2 puff INHALATION BID RF: 0 albuterol sulfate 90 mcg/actuation HFA aerosol inhaler 2 puff INHALATION Q6H PRN (Reason: Shortness Of Breath) RF: 0 Zyrtec 10 mg capsule 10 mg PO ONCE RF: 0 magnesium oxide 400 mg magnesium capsule 400 mg PO ONCE RF: 0 calcium carbonate-vitamin D3 [Calcium with Vitamin D] 600 mg(1,500mg) -400 unit tablet 1 tab PO BID RF: 0 triamcinolone acetonide [Nasacort] 55 mcg aerosol,spray 1 spray INTRANASAL BID RF: 0 doxycycline hyclate 100 mg capsule 100 mg PO BID Qty: 28 RF: 0 sulfamethoxazole-trimethoprim [Bactrim DS] 800-160 mg tablet 1 tab PO BID Qty: 28 RF: 0 sennosides [senna] 8.6 mg tablet 8.6 mg PO BID RF: 0 furosemide 40 mg tablet 40 mg PO DAILY RF: 0 ropinirole 0.5 mg tablet 0.5 mg PO .COMPLEX Qty: 120 RF: 6 cephalexin [Keflex] 500 mg capsule 500 mg PO QID 10 Days Qty: 40 RF: 0 sulfamethoxazole-trimethoprim [Bactrim DS] 800-160 mg tablet 1 tab PO BID Qty: 20 RF: 0 carbidopa-levodopa [Sinemet] 25-250 mg tablet 1 tab PO .COMPLEX Qty: 150 RF: 0 gabapentin 100 mg Capsule 100 mg PO TID RF: 0 oxycodone-acetaminophen 5-325 mg tablet 1 tab PO Q4H PRN (Reason: pain) Qty: 40 RF: 0 Xarelto 10 mg tablet 10 mg PO DAILY Qty: 14 RF: 0 Calcium 600 600 mg calcium (1,500 mg) tablet RF: 0 Discharge Orders: Discharge ED (Routine); Ordered 04/10/20 Ordered By: Fawad Nielsen Referrals: Ricarda Duffy MD [Primary Care Provider] - 4-7 days Discharge Diet: Usual diet Discharge Activity: Increase activity as tolerated Patient Instructions: Black Eye (ED), Skin Avulsion (ED) Activity Restrictions/Additional Instructions: Keep wound dry for 24 hours, then may wash with soap and running water. Do not scrub. Return for worsening headache, mental status changes, vomiting, changes in vision, other concerning symptoms. Coding Level of Care Code ED Electron Beam Operator for Cassandrag Fwd Exam Detailed
[2020-04-10 06:50] VITALS: BP 148/74; PULSE 81; RESP 17; O2SAT 97
== END 2020-04-10 06:52 | disposition home or self-care (01) ==
PROVIDERS: Emergency Provider Emergency Medicine; PCP Internal Medicine
DX: S05.12XA Contusion of eyeball and orbital tissues, left eye, initial encounter (principal); S01.80XA Unspecified open wound of other part of head, initial encounter; G20 Parkinson's disease; W01.198A Fall on same level from slipping, tripping and stumbling with subsequent striking against other object, initial encounter
CPT/HCPCS: 12345; 70450; 70486; 99281; 99283

== ENCOUNTER → 2020-04-13 12:20 | Outpatient (BNVA) | payer OTHER, SELFPAY | PROVIDERS: PCP Internal Medicine; Visit Provider Specialist | DX: G24.3 Spasmodic torticollis (principal); G20 Parkinson's disease | CPT/HCPCS: 64616; 99213; J0585 ==

== ENCOUNTER 2020-04-24 15:34 | Emergency (ER) | payer OTHER, SELFPAY ==
[2020-04-24 15:39] VITALS: BP 162/86; PULSE 97; RESP 18; TEMP 36.8; O2SAT 96; BMI 32.3
--- NOTE | 2020-04-24 17:33 | ED_ITS ---
HPI - Head Injury General: Chief complaint: Head Injury Stated complaint: HEAD INJURY/FALL Time Seen by Provider: 04/24/20 17:30 History of Present Illness: HPI Narrative: Patient is a 59-year-old female comes to the ED with laceration to head after having a fall. Past medical history of Parkinson's and cervical dystonia. Patient says today she was in her house and she lost balance and fell hitting the right side of her head on the counter. She has laceration to right parietal region of scalp. She denies loss of consciousness, vision changes or any neurological symptoms. Patient is not on any blood thinners. Patient says she needs an updated tetanus shot. Associated symptoms: Deny nausea, neck pain or vomiting Review of Systems Narrative: fall Const: Denies: fever(s), chills or fatigue Eyes: Denies: change in vision or eye discomfort ENMT: Denies: throat pain, odynophagia, nasal discharge or nasal congestion Card: Denies: chest pain, palpitations, edema, swelling of feet/ankles, dyspnea on exertion or orthopnea Resp: Denies: dyspnea, productive cough or non-productive cough GI: Denies: abdominal pain, nausea, vomiting, diarrhea, constipation or hemat ochezia : Denies: flank pain, dysuria or hematuria Musc: Denies: neck pain, back pain or extremity swelling Skin/Breast: Reports: new lesions (Laceration to right parietal region of scalp.); Denies: rash Neuro: Denies: headache(s), numbness in extremities or weakness in extremities [facility] ED PFSH: Medical History Asthma Closed intertrochanteric fracture of right hip Superficial postoperative wound infection Social History Smoking and tobacco status: never smoked Alcohol intake: never Physical Exam Const: COMMON NORMALS: no acute distress, patient oriented x3 and alert GENERAL APPEARANCE: cooperative and comfortable HENMT: COMMON NORMALS: normocephalic HEAD & SCALP: normocephalic and laceration right parietal Details of head laceration: linear and superficial; n ot actively bleeding and not pulsatile bleeding Head laceration size: 3.5 cm; no Nguyen's sign and no raccoon eyes MOUTH: Normal oral and palatal mucosa present THROAT: posterior oropharynx normal and uvula midline Neck/C-Spine: COMMON NORMALS: supple GENERAL: Yes normal visual inspection Resp: COMMON NORMALS: normal respiratory effort, No retractions, No use of accessory muscles and clear to auscultation bilaterally AUSCULTATION: clear to auscultation bilaterally Cardio: COMMON NORMALS: regular rate, regular rhythm, S1 normal heart sound present, S2 normal heart sound present, No gallops present (Cardio), No clicks present (Cardio), No murmurs present (Cardio) and Peripheral pulses 2+ throughout RATE: regular rate RHYTHM: regular rhythm HEART SOUNDS: S1 normal heart sound present and S2 normal heart sound present PERIPHERAL PULSES: Peripheral pulses 2+ throughout GI: COMMON NORMALS: Normal to inspection, nondistended, normoactive bowel sounds present, Soft to palpation, non-tender and no masses PALPATION: Yes Soft to palpation : COMMON NORMALS: Yes no CVA tenderness BLADDER/KIDNEY EXAM: Yes no CVA tenderness Back/Pelvis: COMMON NORMALS: no CVA tenderness Extremity: NARRATIVE EXTREMITY EXAM: Patient has some old ecchymosis on right upper arm. Patient says that the bruising on her right upper arm is from her last fall couple weeks ago. GENERAL: Yes normal exam except as noted Neuro: COMMON NORMALS: patient oriented x3, CN's II-XII intact bilaterally, moves all extremities, no focal motor deficits and no sensory deficits noted SENSORIUM/ORIENTATION: Yes alert SENSORY EXAM: Yes extremities (intact) MOTOR EXAM: 5/5 motor strength present throughout Skin: GENERAL SKIN EXAM: dry skin and ecchymosis (On right upper arm-due to past fall injury.) Procedures Laceration Laceration 1: Site: scalp (parietal) Side (If applicable): right Size (cm): 3.5 Description: linear and clean Depth: simple, single layer Local Anesthetic: lidocaine 1% and with epi Amount of anesthesia used (mL): 10 Pre-repair: irrigated extensively (With normal saline) Skin layer closed with: other (dharmesh) Size (cm): other (dharmesh) Number of sutures: 4 Technique: simple, interrupted Course Vital Signs: Vital signs: Vital Signs Temperature 98.2 F 04/24/20 15:39 Pulse Rate 95 04/24/20 18:31 Respiratory Rate 14 04/24/20 18:31 Blood Pressure 160/85 04/24/20 18:31 Pulse Oximetry 97 04/24/20 18:31 MDM - Head Injury MDM Narrative: Medical decision making narrative: Patient is a 59-year-old female comes to the ED with a fall and laceration to scalp. CT of head showed no acute findings. Laceration on scalp was irrigated extensively with normal saline and then lidocaine 1% with epi was used as local. 4 dharmesh were placed to close laceration on scalp. Patient was discharged and told to follow-up with PCP in 7 to 10 days to reevaluate laceration and to get dharmesh removed. Return to ED precautions given. Patient understood and agree with plan. Imaging Data^: CT Head: Attestation: I personally reviewed and interpreted this imaging study as follows: Radiologist's impression: [id number] [address] [address] Scan Report Signed Patient: Liliana Davis Unit #: [id number] : 1960 Age/Sex: 59 / F ADM Date: 04/24/20 Loc: ER Room/Bed: Attending Dr: Ordering Provider/Ordering MD: Julius Lyle Date of Service: 04/24/20 Procedure(s): CT head wo con* [id number] Accession Number(s): [id number] Report Number: [id number] PROCEDURE INFORMATION: Exam: CT Head Without Contrast Exam date and time: 04/24/2020 5:59 PM Age: 59 years old Clinical indication: Injury or trauma; Blunt trauma (contusions or hematomas) and laceration; Without loss of consciousness; Without residual foreign body; Scalp; Injury details: Fall. Posterior head laceration. No loc; Additional info: Fall and hit head TECHNIQUE: Imaging protocol: Computed tomography of the head without contrast. Radiation optimization: All CT scans at this facility use at least one of these dose optimization techniques: automated exposure control; mA and/or kV adjustment per patient size (includes targeted exams where dose is matched to clinical indication); or iterative reconstruction. COMPARISON: CT head wo con* [id number] 04/10/2020 5:22 AM RADIATION DOSE METRICS: Total DLP (mGy-cm): 427.78 FINDINGS: Limitations: The study is limited by mild patient motion artifact. Brain: Unremarkable. No hemorrhage. No significant white matter disease. No edema. Cerebral ventricles: No ventriculomegaly. Bones/joints: No fracture or other acute osseous abnormality. Paranasal sinuses: The paranasal sinuses, as demonstrated, appear clear. Mastoid air cells: The mastoid air cells are clear bilaterally. Soft tissues: Unremarkable. Previously noted left periorbital soft tissue swelling has resolved. CT/CT head wo con* [id number] IMPRESSION: 1. The study is limited by mild patient motion artifact. 2. No acute intracranial abnormality demonstrated. 3. There is no new abnormality compared to the prior examination of 04/10/2020. Radiation Dose CTDIVOL = (mGy): DLP = 427.78 (mGy-cm) Dictated By: George Sam MD Signed By: George Sam MD Signed Date/Time: 04/24/201833 DD/ 33 Discharge Plan Discharge Patient Disposition: Home Clinical Impression: Scalp laceration Qualifiers: Encounter type: initial encounter Qualified Code(s): S01.01XA - Laceration without foreign body of scalp, initial encounter Fall as cause of accidental injury at home as place of occurrence Qualifiers: Encounter type: initial encounter Qualified Code(s): W19.XXXA - Unspecified fall, initial encounter Condition: Stable Prescriptions: No Action omeprazole 40 mg capsule,delayed release(DR/EC) 40 mg PO BID RF: 0 oxybutynin chloride 10 mg tablet extended release 24hr 10 mg PO ONCE RF: 0 Symbicort 160-4.5 mcg/actuation HFA aerosol inhaler 2 puff INHALATION BID RF: 0 albuterol sulfate 90 mcg/actuation HFA aerosol inhaler 2 puff INHALATION Q6H PRN (Reason: Shortness Of Breath) RF: 0 Zyrtec 10 mg capsule 10 mg PO ONCE RF: 0 magnesium oxide 400 mg magnesium capsule 400 mg PO ONCE RF: 0 calcium carbonate-vitamin D3 [Calcium with Vitamin D] 600 mg(1,500mg) -400 unit tablet 1 tab PO BID RF: 0 triamcinolone acetonide [Nasacort] 55 mcg aerosol,spray 1 spray INTRANASAL BID RF: 0 doxycycline hyclate 100 mg capsule 100 mg PO BID Qty: 28 RF: 0 sulfamethoxazole-trimethoprim [Bactrim DS] 800-160 mg tablet 1 tab PO BID Qty: 28 RF: 0 sennosides [senna] 8.6 mg tablet 8.6 mg PO BID RF: 0 furosemide 40 mg tablet 40 mg PO DAILY RF: 0 ropinirole 0.5 mg tablet 0.5 mg PO .COMPLEX Qty: 120 RF: 6 cephalexin [Keflex] 500 mg capsule 500 mg PO QID 10 Days Qty: 40 RF: 0 sulfamethoxazole-trimethoprim [Bactrim DS] 800-160 mg tablet 1 tab PO BID Qty: 20 RF: 0 carbidopa-levodopa [Sinemet] 25-250 mg tablet 1 tab PO .COMPLEX Qty: 150 RF: 3 gabapentin 100 mg Capsule 100 mg PO TID RF: 0 oxycodone-acetaminophen 5-325 mg tablet 1 tab PO Q4H PRN (Reason: pain) Qty: 40 RF: 0 Xarelto 10 mg tablet 10 mg PO DAILY Qty: 14 RF: 0 Calcium 600 600 mg calcium (1,500 mg) tablet RF: 0 Discharge Orders: Discharge ED (Routine); Ordered 04/24/20 Ordered By: Julius Lyle Referrals: Ricarda Duffy MD [Primary Care Provider] - Discharge Diet: Regular Discharge Activity: Resume usual activity Patient Instructions: Scalp Laceration, Laceration (ED), Staple Care (ED) Activity Restrictions/Additional Instructions: Follow-up with medical provider as directed. Have dharmesh removed in 7 to 10 days by PCP, urgent care or ED. Continue taking all home medications. Keep laceration head dry for the next 24 hours then you can rinse hair, but do not scrub laceration area. Return to the ER or your medical provider if condition worsens. Watch for signs of infection such as increased tenderness, warmth or purulent drainage around the laceration. If you see any of those signs of infection return to ED urgent care for reevaluation. Please read and understand discharge instructions. If any questions, please ask. Coding Level of Care Code ED Finish Cleaner for Christel Fwd Exam Comprehensive
[2020-04-24 18:31] VITALS: BP 160/85; PULSE 95; RESP 14; O2SAT 97
[2020-04-24] MEDS: tetanus-dipt-pertussis 0.5 mL SDV IM (18:45)
[2020-04-24] MEDS: HYDROcodone-acetaminophen 7.5-325 mg Tablet 2 TAB PO (18:52)
== END 2020-04-24 19:00 | disposition home or self-care (01) ==
PROVIDERS: Emergency Provider Physician Assistant; PCP Internal Medicine
DX: S01.01XA Laceration without foreign body of scalp, initial encounter (principal); W18.39XA Other fall on same level, initial encounter; G20 Parkinson's disease; Z23 Encounter for immunization
CPT/HCPCS: 12002; 12345; 70450; 90471; 90715; 99281; 99283

== ENCOUNTER → 2020-07-06 12:04 | Outpatient (BNVA) | payer OTHER, SELFPAY | PROVIDERS: PCP Internal Medicine; Visit Provider Specialist | DX: G24.3 Spasmodic torticollis (principal); G20 Parkinson's disease | CPT/HCPCS: 64616; 99214; J0585 ==

== ENCOUNTER 2020-08-07 13:30 | Emergency (ER) | payer OTHER, SELFPAY ==
[2020-08-07 13:41] VITALS: BP 126/76; PULSE 88; RESP 18; TEMP 36.9; O2SAT 96; BMI 31.3
[2020-08-07 13:49] VITALS: BP 142/87; PULSE 88; RESP 18; O2SAT 98
--- NOTE | 2020-08-07 14:07 | XRR_ITS ---
PROCEDURE INFORMATION: Exam: XR Lumbosacral Spine Exam date and time: 08/07/2020 4:21 PM Age: 59 years old Clinical indication: Pain and injury or trauma; Fall; Blunt trauma (contusions or hematomas); Low back pain; Injury date: 08/02/20; Prior surgery; Surgery type: RT hip TECHNIQUE: Imaging protocol: XR of the lumbosacral spine. Views: 2 or 3 views. COMPARISON: CR XR hip RT 2-3V wo/w pel* [id number] 01/20/2020 8:51 AM FINDINGS: Bones/joints: Again seen is severe compression fracture with bony retropulsion into spinal canal at T12. There is no evidence of acute lumbar fracture. There is disc height loss with vacuum disc at L4-L5 and disc height loss at L5-S1. There are degenerative changes with marginal osteophytes and facet degenerative changes predominantly visible at L4-L5 and L5-S1. There is a small sclerotic lesion in left sacrum which although nonspecific may be bone island. Soft tissues: Unremarkable. Gastrointestinal tract: There is prominent stool present. XR/XR lumbar spine 2-3V* [id number] IMPRESSION: Stable compression fracture with bony retropulsion of T12.
--- NOTE | 2020-08-07 14:07 | XRR_ITS ---
PROCEDURE INFORMATION: Exam: XR Thoracic Spine Exam date and time: 08/07/2020 4:21 PM Age: 59 years old Clinical indication: Pain and injury or trauma; Fall; Blunt trauma (contusions or hematomas); Pain in thoracic spine; Injury date: 08/02/20 TECHNIQUE: Imaging protocol: XR of the thoracic spine. Views: 3 views. COMPARISON: CT thoracic spin wo con* [id number] 08/07/2020 5:54:42 PM FINDINGS: Bones/joints: Again seen is severe compression fracture with bony retropulsion into spinal canal at T12. There is increased cervical thoracic kyphosis. There is mild superior endplate compression and anterior wedging T2 which appears nonacute. There are old left rib fractures. Soft tissues: Unremarkable. Lungs: Left greater than right basilar pulmonary opacities likely atelectasis. XR/XR thoracic spine 3V* [id number] IMPRESSION: Stable compression fracture with bony retropulsion of T12.
--- NOTE | 2020-08-07 14:16 | W.ED.FALL ---
Documented by User: Luis Fernando Murlilo DO 08/07/20 18:04 HPI - Fall General: Chief Complaint: Fall Stated Complaint: fall, injury to back Time Seen by Provider: 08/07/20 14:06 History of Present Illness: HPI Narrative: 59-year-old female presents emergency room with complaints of multiple falls. She has a history of Parkinson's. She fell last week landed on her buttocks hard she did not strike her head did not lose consciousness complaining of increasing back pain since the fall. No radicular leg pain. MD complaint: fall Onset (ago): day(s) Fall from: standing Fall witnessed: no Loss of consciousness: None Prolonged down time: no Symptoms prior to fall: other (Back pain) Context: tripped/slipped Severity: moderate Quality: sharp Associated symptoms-after fall: Denies abdominal pain, chest pain, confusion, difficulty walking, headache(s), hematuria, lightheadedness, neck pain, short of breath, vertigo or weakness Review of Systems Const: Denies: fever(s), chills, body aches, change in appetite, fatigue or malaise ENMT: Denies: throat pain, ear or mastoid pain, nasal discharge or nasal congestion Card: Denies: chest pain or lightheadedness Resp: Denies: dyspnea, productive cough or non-productive cough GI: Denies: abdominal pain : Denies: hematuria Musc: Denies: neck pain Skin/Breast: Denies: rash or pruritus Neuro: Denies: headache(s), difficulty walking, vertigo or confusion PFS ED PFSH: Medical History (Updated 08/07/20 @ 19:09 by Napoleon Larry) Asthma Closed intertrochanteric fracture of right hip Superficial postoperative wound infection Social History Smoking and tobacco status: never smoked Alcohol intake: never Physical Exam Const: COMMON NORMALS: average body habitus, patient oriented x3 and alert GENERAL APPEARANCE: cooperative, comfortable, well kempt and well developed NUTRITIONAL APPEARANCE: obese ORIENTATION/CONSCIOUSNESS: Yes awake, Yes oriented to person and Yes oriented to place HENMT: COMMON NORMALS: normocephalic, atraumatic, EAC's normal and TM's normal bilaterally HEAD & SCALP: normocephalic and atraumatic EXTERNAL AUDITORY CANAL: EAC's normal TYMPANIC MEMBRANE: TM's normal bilaterally Neck/C-Spine: COMMON NORMALS: full ROM, no lymphadenopathy, supple, no meningeal signs and Thyroid normal THYROID: Thyroid normal and asymmetrical Resp: COMMON NORMALS: normal respiratory effort, No retractions, No use of accessory muscles and clear to auscultation bilaterally AUSCULTATION: clear to auscultation bilaterally Cardio: COMMON NORMALS: regular rate and regular rhythm RATE: regular rate RHYTHM: regular rhythm HEART SOUNDS: no murmurs GI: COMMON NORMALS: Normal to inspection, nondistended, normoactive bowel sounds present, Soft to palpation and No hepatosplenomegaly present PALPATION: Yes Soft to palpation and Yes No hepatosplenomegaly present : COMMON NORMALS: Yes no CVA tenderness BLADDER/KIDNEY EXAM: Yes no CVA tenderness Back/Pelvis: COMMON NORMALS: no CVA tenderness LUMBAR SPINE/LOWER BACK: Yes normal to inspection Extremity: COMMON NORMALS: no clubbing, cyanosis or edema, no calf tenderness and no pedal edema Neuro: COMMON NORMALS: patient oriented x3 SENSORIUM/ORIENTATION: Yes alert, Yes oriented to person and Yes oriented to place MENINGEAL SIGNS: Yes no meningeal signs Psych: APPEARANCE: Yes well kempt Skin: COMMON NORMALS: no rashes or lesions noted and turgor normal GENERAL SKIN EXAM: no rashes or lesions noted and turgor normal Course Vital Signs: Vital signs: Vital Signs Temperature 98.5 F 08/07/20 21:51 Pulse Rate 95 08/07/20 21:51 Respiratory Rate 17 08/07/20 21:51 Blood Pressure 179/80 08/07/20 21:51 Pulse Oximetry 100 08/07/20 21:51 MDM - Fall MDM Narrative: Medical decision making narrative: Was nearly 4 hours before the plain films were taken. There are some compression fractures on the plain films of the lumbar spine we will get CTs. Change of shift has come discussed Dr. Duran see his notes for final diagnosis and disposition. Discharge Plan Discharge Patient Disposition: Home Clinical Impression: Compression fracture, Central stenosis of spinal canal T12 compression fracture Qualifiers: Encounter type: initial encounter Qualified Code(s): S22.080A - Wedge compression fracture of T11-T12 vertebra, initial encounter for closed fracture Condition: Stable Prescriptions: No Action omeprazole 40 mg capsule,delayed release(DR/EC) 40 mg PO BID RF: 0 oxybutynin chloride 10 mg tablet extended release 24hr 10 mg PO ONCE RF: 0 Symbicort 160-4.5 mcg/actuation HFA aerosol inhaler 2 puff INHALATION BID RF: 0 albuterol sulfate 90 mcg/actuation HFA aerosol inhaler 2 puff INHALATION Q6H PRN (Reason: Shortness Of Breath) RF: 0 Zyrtec 10 mg capsule 10 mg PO ONCE RF: 0 magnesium oxide 400 mg magnesium capsule 400 mg PO ONCE RF: 0 calcium carbonate-vitamin D3 [Calcium with Vitamin D] 600 mg(1,500mg) -400 unit tablet 1 tab PO BID RF: 0 triamcinolone acetonide [Nasacort] 55 mcg aerosol,spray 1 spray INTRANASAL BID RF: 0 mupirocin 2 % ointment 1 applic topical TID Qty: 22 RF: 0 doxycycline hyclate 100 mg capsule 100 mg PO BID Qty: 28 RF: 0 sennosides [senna] 8.6 mg tablet 8.6 mg PO BID PRN (Reason: Constipation) RF: 0 Botox 100 unit recon soln 300 unit SUBCUT ONCE Qty: 1 RF: 0 gabapentin 100 mg Capsule 100 mg PO TID RF: 0 carbidopa-levodopa [Sinemet] 25-250 mg tablet 1.5 tab PO QID RF: 0 Discharge Orders: Discharge ED (Routine); Ordered 08/07/20 Ordered By: Napoleon Larry Referrals: Ricarda Duffy MD [Primary Care Provider] - Discharge Diet: Usual diet Discharge Activity: Limit activity as instructed Patient Instructions: Opioid Safety Activity Restrictions/Additional Instructions: Call Dr. Shay, Neurosurgeon, on 08/08/2020 [phone] Coding Level of Care Code ED Crusher And Binder Operator for Chg Fwd Exam Comprehensive Documented by User: Napoleon Larry 04/13/21 01:44 HPI - Fall General: Chief Complaint: Fall Stated Complaint: fall, injury to back Time Seen by Provider: 08/07/20 14:06 [facility] ED PFSH: Medical History (Updated 08/07/20 @ 19:09 by Napoleon Larry) Asthma Closed intertrochanteric fracture of right hip Superficial postoperative wound infection Social History Smoking and tobacco status: never smoked Alcohol intake: never Course Consultations: Consultation #1: Dr. Shay, Neurosurgeon, [facility], reviewed results and indicated that the patient can go home with the TSLO brace. She is to call his office in the morning for follow-up. Vital Signs: Vital signs: Vital Signs Temperature 98.5 F 08/07/20 21:51 Pulse Rate 95 08/07/20 21:51 Respiratory Rate 17 08/07/20 21:51 Blood Pressure 179/80 08/07/20 21:51 Pulse Oximetry 100 08/07/20 21:51 Discharge Plan Discharge Patient Disposition: Home Clinical Impression: Compression fracture, Central stenosis of spinal canal T12 compression fracture Qualifiers: Encounter type: initial encounter Qualified Code(s): S22.080A - Wedge compression fracture of T11-T12 vertebra, initial encounter for closed fracture Condition: Stable Prescriptions: No Action omeprazole 40 mg capsule,delayed release(DR/EC) 40 mg PO BID RF: 0 oxybutynin chloride 10 mg tablet extended release 24hr 10 mg PO ONCE RF: 0 Symbicort 160-4.5 mcg/actuation HFA aerosol inhaler 2 puff INHALATION BID RF: 0 albuterol sulfate 90 mcg/actuation HFA aerosol inhaler 2 puff INHALATION Q6H PRN (Reason: Shortness Of Breath) RF: 0 Zyrtec 10 mg capsule 10 mg PO ONCE RF: 0 magnesium oxide 400 mg magnesium capsule 400 mg PO ONCE RF: 0 calcium carbonate-vitamin D3 [Calcium with Vitamin D] 600 mg(1,500mg) -400 unit tablet 1 tab PO BID RF: 0 triamcinolone acetonide [Nasacort] 55 mcg aerosol,spray 1 spray INTRANASAL BID RF: 0 mupirocin 2 % ointment 1 applic topical TID Qty: 22 RF: 0 doxycycline hyclate 100 mg capsule 100 mg PO BID Qty: 28 RF: 0 sennosides [senna] 8.6 mg tablet 8.6 mg PO BID PRN (Reason: Constipation) RF: 0 Botox 100 unit recon soln 300 unit SUBCUT ONCE Qty: 1 RF: 0 gabapentin 100 mg Capsule 100 mg PO TID RF: 0 carbidopa-levodopa [Sinemet] 25-250 mg tablet 1.5 tab PO QID RF: 0 Discharge Orders: Discharge ED (Routine); Ordered 08/07/20 Ordered By: Napoleon Larry Referrals: Ricarda Duffy MD [Primary Care Provider] - Discharge Diet: Usual diet Discharge Activity: Limit activity as instructed Patient Instructions: Opioid Safety Activity Restrictions/Additional Instructions: Call Dr. Shay, Neurosurgeon, on 08/08/2020 [phone] [facility] Coding Level of Care Code ED Crusher And Binder Operator for Chg Fwd Exam Comprehensive
[2020-08-07 17:00] VITALS: RESP 18
--- NOTE | 2020-08-07 17:27 | CTR_ITS ---
PROCEDURE INFORMATION: Exam: CT Thoracic Spine Without Contrast Exam date and time: 08/07/2020 5:31 PM Age: 59 years old Clinical indication: Injury or trauma; Blunt trauma (contusions or hematomas); Injury details: Frequent falls; Prior surgery; Surgery type: L4-l5, RT hip; Patient HX: HX of parkinsons; Additional info: Pain fall TECHNIQUE: Imaging protocol: Computed tomography images of the thoracic spine without contrast. Radiation optimization: All CT scans at this facility use at least one of these dose optimization techniques: automated exposure control; mA and/or kV adjustment per patient size (includes targeted exams where dose is matched to clinical indication); or iterative reconstruction. COMPARISON: CR XR thoracic spine 3V* [id number] 08/07/2020 4:58 PM RADIATION DOSE METRICS: Total DLP (mGy-cm): 1526.84 FINDINGS: Limitations: Study is limited due to patient body habitus. Vertebrae: There is mild compression deformity of the superior endplate of T2 representing compression injury of uncertain age. There is severe compression deformity and fracture of body of T12 with approximately a 6 mm of retropulsion of the superior aspect of the posterior vertebral body. This causes severe central canal stenosis narrowing the sagittal diameter of the canal to 7 mm. There is some mild adjacent soft tissue swelling suggesting that this fracture is more recent. Discs/Spinal canal/Neural foramina: See Vertebrae finding. Other bones/joints: There are old healed fractures of the lateral aspects of the left 3rd and 4th ribs in the healing fractures of the posterior aspects of the left 5th through 8th ribs and also the 10th rib. There is some partial atelectasis at the left lung base. The lungs are not fully included on this examination. There also old healed fractures involving the bases of the left 6 7th and 8th ribs. Soft tissues: See Vertebrae finding. CT/CT thoracic spin wo con* [id number] IMPRESSION: 1. Mild compression fracture of the superior endplate of T2 of uncertain age. 2. Severe compression fracture of T12 which appears to be recent 3. Severe central canal stenosis at T12 level due to retropulsion of fracture fragments. Radiation Dose CTDIVOL = (mGy): DLP = 1526.84 (mGy-cm)
--- NOTE | 2020-08-07 17:27 | CTR_ITS ---
PROCEDURE INFORMATION: Exam: CT Lumbar Spine Without Contrast Exam date and time: 08/07/2020 5:31 PM Age: 59 years old Clinical indication: Injury or trauma; Blunt trauma (contusions or hematomas); Injury details: Frequent falls; Prior surgery; Surgery type: L4-l5, right hip; Additional info: Pain fall TECHNIQUE: Imaging protocol: Computed tomography images of the lumbar spine without contrast. Radiation optimization: All CT scans at this facility use at least one of these dose optimization techniques: automated exposure control; mA and/or kV adjustment per patient size (includes targeted exams where dose is matched to clinical indication); or iterative reconstruction. COMPARISON: CR XR lumbar spine 2-3V* [id number] 08/07/2020 4:58 PM RADIATION DOSE METRICS: Total DLP (mGy-cm): 3.04 FINDINGS: Vertebrae: There is compression fracture with severe compression of T12 and retropulsion of the superior aspect of the posterior vertebral body causing central canal stenosis as described on the CT scan of the thoracic spine. There is deformity of the right transverse process of L1 which may congenital, or due to remote injury. There is widening of the T12-L1 facet joints bilaterally which may be related to the recent T12 fracture. L1-L2: No significant disc protrusion. No severe spinal canal stenosis. No significant neural foraminal narrowing. L2-L3: No significant disc protrusion. No severe spinal canal stenosis. No significant neural foraminal narrowing. L3-L4: Diffuse posterior bulging of the disc without focal herniation. Hypertrophic degenerative changes in the facet joints bilaterally and hypertrophy of the ligamentum flavum bilaterally causing moderate to severe central canal stenosis narrowing the sagittal diameter of the canal to less than 8 mm. Mild left foraminal narrowing. L4-L5: Severe decreased height of the disc space with vacuum disc phenomenon. Posterior disc osteophyte complex in the midline. Severe degenerative changes in the facet joints with mild right and severe left foraminal stenosis. L5-S1: Severe decreased height of the disc space. Mild posterior osteophyte formation. Facet joint degeneration with severe right and moderate left foraminal narrowing. Soft tissues: Unremarkable. CT/CT lumbar spine wo con* [id number] IMPRESSION: 1. T12 compression fracture. Please see report of CT thoracic spine. 2. Degenerative disc disease in the lower lumbar spine as described. Radiation Dose CTDIVOL = (mGy): DLP = 2093.04 (mGy-cm)
[2020-08-07 19:00] VITALS: BP 179/80; PULSE 94; RESP 17; O2SAT 98
[2020-08-07 21:51] VITALS: BP 179/80; PULSE 95; RESP 17; TEMP 36.9; O2SAT 100
== END 2020-08-07 21:51 | disposition home or self-care (01) ==
PROVIDERS: Emergency Provider Emergency Medicine; PCP Internal Medicine
DX: S22.080A Wedge compression fracture of T11-T12 vertebra, initial encounter for closed fracture (principal); M48.00 Spinal stenosis, site unspecified; W19.XXXA Unspecified fall, initial encounter; G20 Parkinson's disease
CPT/HCPCS: 72072; 72100; 72128; 72131; 99283

== ENCOUNTER → 2020-09-28 11:46 | Outpatient (BNVA) | payer OTHER, SELFPAY | PROVIDERS: PCP Internal Medicine; Visit Provider Specialist | DX: G24.3 Spasmodic torticollis (principal); G20 Parkinson's disease; G90.3 Multi-system degeneration of the autonomic nervous system | CPT/HCPCS: 64616; 99215; J0585 ==

== ENCOUNTER → 2020-10-18 11:13 | Outpatient (BNVA) | payer OTHER, SELFPAY | PROVIDERS: PCP Internal Medicine; Visit Provider Orthopaedic Surgery | DX: M25.551 Pain in right hip (principal); Z47.89 Encounter for other orthopedic aftercare; M16.12 Unilateral primary osteoarthritis, left hip | CPT/HCPCS: 73502 ==

== ENCOUNTER 2020-11-09 06:00 | Outpatient (RCR) | payer OTHER, SELFPAY | END 2020-11-09 23:00 | disposition home or self-care (01) | LOC: SOT 06:00 | PROVIDERS: PCP Internal Medicine; Referring Provider Specialist; Visit Provider Specialist | DX: G20 Parkinson's disease (principal) | CPT/HCPCS: 97167; 97530 ==

== ENCOUNTER → 2020-12-28 11:41 | Outpatient (BNVA) | payer OTHER, SELFPAY | PROVIDERS: PCP Internal Medicine; Visit Provider Specialist | DX: G24.3 Spasmodic torticollis (principal); G20 Parkinson's disease | CPT/HCPCS: 64616; 99214; J0585 ==

== ENCOUNTER → 2021-02-01 09:01 | Outpatient (BNVA) | payer OTHER, SELFPAY | PROVIDERS: PCP Internal Medicine; Visit Provider Specialist | DX: G24.3 Spasmodic torticollis (principal); G20 Parkinson's disease | CPT/HCPCS: 99215 ==

== ENCOUNTER 2021-04-30 12:43 | Emergency (ER) | payer OTHER, SELFPAY ==
[2021-04-30 12:44] VITALS: BP 154/100; PULSE 86; RESP 18; TEMP 37.1; O2SAT 96; BMI 29.3
--- NOTE | 2021-04-30 13:03 | CTR_ITS ---
PROCEDURE INFORMATION: Exam: CT Head Without Contrast Exam date and time: 04/30/2021 1:03 PM Age: 60 years old Clinical indication: Fall with blunt trauma. Posterior head laceration. TECHNIQUE: Imaging protocol: Computed tomography of the head without contrast. Radiation optimization: All CT scans at this facility use at least one of these dose optimization techniques: automated exposure control; mA and/or kV adjustment per patient size (includes targeted exams where dose is matched to clinical indication); or iterative reconstruction. COMPARISON: CT head wo con* [id number] 04/24/2020 6:07 PM RADIATION DOSE METRICS: Total DLP (mGy-cm): 564.34 FINDINGS: Brain: No acute intracranial hemorrhage. No mass, mass effect or midline shift. There is no evidence of acute large vessel infarct. The subcortical and periventricular white matter is normal in attenuation. The middle cranial fossae are largely obscured by streak artifact. Cerebral ventricles: The ventricles are normal in configuration. Paranasal sinuses: The visualized paranasal sinuses are clear. Mastoid air cells: No mastoid effusion. Orbital cavity: The visualized orbits are unremarkable. Bones/joints: No acute fracture is seen. Soft tissues: Left parietal scalp laceration status post stapling. A small underlying scalp hematoma is noted. CT/CT head wo con* [id number] IMPRESSION: 1. Left parietal scalp laceration status post stapling. A small underlying scalp hematoma is noted. 2. The middle cranial fossae are largely obscured by streak artifact. 3. No acute intracranial hemorrhage is identified.
--- NOTE | 2021-04-30 13:29 | ECG_ITS ---
[facility] Test Date: 2021-04-30 Pat Name: Liliana Davis Department: Room: Gender: Female Irrigation Specialist: : 1960 Requested By: Justice Lindsey Order Number: [id number] Matilda MD: Juana Chairez M.D. Measurements Intervals [place] Rate: 86 P: 22 ND: 140 QRS: -17 QRSD: 86 T: 39 QT: 356 QTc: 427 Interpretive Statements SINUS RHYTHM No previous ECG available for comparison Electronically Signed On 04-30-2021 20:53:11 REFRIGERATION SPECIALIST by Juana Chairez M.D. [id number]
--- NOTE | 2021-04-30 13:32 | ED_ITS ---
HPI - General Adult General: Chief complaint: Fall Stated complaint: BLEEDING FROM HEAD Time Seen by Provider: 04/30/21 12:57 History of Present Illness: HPI narrative: Patient is a 60-year-old female with history of Parkinson's disease who presents emergency room after a fall and injury to her head earlier today. Patient was walking in her bedroom when she hit her head on the corner of her dresser while falling back. Patient felt lightheaded right prior to the episode of fall. Thinks that is her Parkinson's dizziness causing her to fall recently. Patient is reports significant bleeding and EMS was alerted. By the time EMS arrived, profuse bleeding from the scalp was noted. Patient was placed in a curlex wrap and brought to the ER. On arrival, patient is any chest pain shortness breath palpitation prior to the episode of fall. No other focal complaints today. Patient reports that she is up-to-date with her tetanus. Patient reports active bleeding from the scalp laceration currently. Denies any other focal areas of pain or injuries. Onset: 10 am this morning Duration:ongoing Location:home Severity:severe Review of Systems Narrative: Constitutional: No fever, no chills. HEENT: No vision changes CV: No chest pain, no palpitations PULM: no cough, no dyspnea. GI: No abdominal pain, no N/V/D. : No dysuria MSKEL: No muscle pain SKIN: +Scalp laceration and bleeding NEURO: No headache, no focal weakness. +headache HEME: No visible bruises PSYCH: Normal mood PFSH ED PFSH: Medical History (Updated 04/30/21 @ 13:30 by Justice Lindsey MD) Asthma Closed intertrochanteric fracture of right hip Superficial postoperative wound infection Social History Alcohol intake: never History of recent travel: No Physical Exam Narrative: EXAM NARRATIVE: Head: Atraumatic Eyes: PERRL, conjunctiva without injection ENT: Mucous membrane moist NECK: Supple, ROM intact LUNGS: LCTAB, no crackles/rhonchi CV: RRR ABDOMEN: Soft, nontender in all quadrants EXTREMITY: Normal ROM SKIN: +scalp hematoma laceration measuring 1cm in the L occpital area with active bleeding NEURO: Awake and alert, no focal motor deficits PSYCH: Normal mood and affect Procedures Laceration Laceration 1: Site: scalp Side (If applicable): left Size (cm): 1 Description: irregular Local Anesthetic: lidocaine 1% and with epi Amount of anesthesia used (mL): 6 Pre-repair: irrigated extensively Skin layer closed with: vicryl Size (cm): other (0) Number of sutures: 4 Laceration 2: Site: scalp Side (If applicable): left Size (cm): 1 Description: linear Depth: simple, single layer Local Anesthetic: lidocaine 1% and with epi Amount of anesthesia used (mL): 3 Pre-repair: wound explored and irrigated extensively Skin layer closed with: other (dharmesh x 5) Course Vital Signs: Vital signs: Vital Signs Temperature 98.7 F 04/30/21 12:44 Pulse Rate 86 04/30/21 15:33 Respiratory Rate 16 04/30/21 15:33 Blood Pressure 144/86 04/30/21 15:33 Pulse Oximetry 95 04/30/21 15:33 MDM - General Adult MDM Narrative: Medical decision making narrative: 60-year-old female with hi story of Parkinson's disease presents emergency room with concerns for scalp laceration, bleeding and headache. Patient appears on exam to have moderate amount of bleeding on arrival. Given concerns for possible scalp arterial bleed, decision was made to continue bleeding immediately upon arrival. Hemostasis was achieved with sutures. Another area of laceration was closed with dharmesh. Please refer to procedure notes for further information. H&H appears to be stable at 12.3. CT brain negative for any acute brain bleed. Given the concerns of lightheadedness, EKG and troponin was ordered today. Troponin initially of 39. Repeat troponin of 41. EKG is nonischemic. She was able to ambulate without any difficulty. Patient has an appointment with Dr. Quiroz tomorrow for Parkinson's disease. The fact 2 troponins are similar, EKG is nonischemic, patient does not have any chest pain, is able to ambulate with feeling of feeling lightheaded, I do not suspect that this is ACS related. Patient aware that sutures and dharmesh (if any) need to be removed in 10 to 14 days. Rx: tylenol PRN pain Disposition: Discharge. Patient counseled regarding diagnostic impression, treatment plan. Patient given ED strict return precautions to return for continuation, worsening, or development of new symptoms. Instructed to f/u w/ PCP regarding symptoms today. Patient verbalized understanding. Patient is given strict return precaution for any significant bleeding, suture dehiscence, signs of injections or any new or concerning is relating to the laceration site. Lab Data: Labs: Lab Results 04/30/21 04/30/21 04/30/21 15:02 15:02 15:02 WBC 5.7 10^3/uL 10^3/ uL (4.0-10.0) RBC 4.35 10^6/uL 10^6 /uL (4.1-5.3) Hgb 12.3 g/dL g/dL (11.5-15.3) Hct 39.6 % % (37.0-47.0) MCV 91.0 fl fl (81-99) MCH 28.3 pg pg (28.0-34.0) MCHC 31.1 g/dL g/dL (30.0-36.0) RDW 13.0 % % (12.1-15.1) Plt Count 158 10^3/cmm 10^3 /cmm (130-400) MPV 12.3 fL H fL (7.4-10.4) Neut % (Auto) 70.9 % % Lymph % (Auto) 20.4 % % [place] % (Auto) 6.5 % % Eos % (Auto) 1.2 % % Baso % (Auto) 0.5 % % Neut # (Auto) 4.03 10^3/uL 10^3 /uL (1.8-7.7) Lymph # (Auto) 1.2 10^3/uL 10^3/ uL (0.8-4.8) [place] # (Auto) 0.4 10^3/uL 10^3/ uL (0.2-0.9) Eos # (Auto) 0.1 10^3/uL 10^3/ uL (0.0-0.8) Baso # (Auto) 0.0 10^3/uL 10^3/ uL (0.0-0.1) Nucleated RBC % (a uto) 0 % % Nucleated RBCs # 0.0 /100WBC /100W BC PT 12.90 SECONDS SEC ONDS (12.1-14.9) INR 0.95 (0.8-1.2) APTT 21.2 SECONDS L SE CONDS (23.9-36.7) Sodium 140 mmol/L mmol/L (136-145) Potassium 4.8 mmol/L mmol/L (3.5-5.1) Chloride 102 mmol/L mmol/L (98-107) Carbon Dioxide 24 mmol/L mmol/L (22-29) Anion Gap 18.8 (5-19) BUN 12 mg/dL mg/dL (6-20) Creatinine 0.5 mg/dL mg/dL (0.5-0.9) GFR Calculation 126.3 mL/min mL/m in (90-130) Glucose 78 mg/dL mg/dL (65-115) Calculated Osmolal ity 289 mOsm/kg mOsm/ kg (285-295) Calcium 8.5 mg/dL mg/dL (8.5-10.5) Troponin T Gen 5 n g/L 04/30/21 04/30/21 15:02 16:33 WBC RBC Hgb Hct MCV MCH MCHC RDW Plt Count MPV Neut % (Auto) Lymph % (Auto) [place] % (Auto) Eos % (Auto) Baso % (Auto) Neut # (Auto) Lymph # (Auto) [place] # (Auto) Eos # (Auto) Baso # (Auto) Nucleated RBC % (a uto) Nucleated RBCs # PT INR APTT Sodium Potassium Chloride Carbon Dioxide Anion Gap BUN Creatinine GFR Calculation Glucose Calculated Osmolal ity Calcium Troponin T Gen 5 n g/L 39 ng/L H ng/L 41 ng/L H ng/L (0-10) (0-10) Imaging Data^: Other Imaging: Radiologist's impression: [address] [id number] Scan ReportSigned Patient: Liliana Davis #: [id number]: 2Acct#:[id number]/Sex: 60 / FADM Date: 04/30/21Loc: ERRoom/Bed:Attending Dr: Ordering Provider/Ordering MD: Justice Lindsey MD Date of Service: 04/30/21 Procedure(s): CT head wo con* [id number] Accession Number(s): [id number] Report Number: [id number] PROCEDURE INFORMATION: Exam: CT Head Without Contrast Exam date and time: 04/30/2021 1:03 PM Age: 60 years old Clinical indication: Fall with blunt trauma. Posterior head laceration. TECHNIQUE: Imaging protocol: Computed tomography of the head without contrast. Radiation optimization: All CT scans at this facility use at least one of these dose optimization techniques: automated exposure control; mA and/or kV adjustment per patient size (includes targeted exams where dose is matched to clinical indication); or iterative reconstruction. COMPARISON: CT head wo con* [id number] 04/24/2020 6:07 PM RADIATION DOSE METRICS: Total DLP (mGy-cm): 564.34 FINDINGS: Brain: No acute intracranial hemorrhage. No mass, mass effect or midline shift. There is no evidence of acute large vessel infarct. The subcortical and periventricular white matter is normal in attenuation. The middle cranial fossae are largely obscured by streak artifact. Cerebral ventricles: The ventricles are normal in configuration. Paranasal sinuses: The visualized paranasal sinuses are clear. Mastoid air cells: No mastoid effusion. Orbital cavity: The visualized orbits are unremarkable. Bones/joints: No acute fracture is seen. Soft tissues: Left parietal scalp laceration status post stapling. A small underlying scalp hematoma is noted. CT/CT head wo con* [id number] IMPRESSION: 1. Left parietal scalp laceration status post stapling. A small underlying scalp hematoma is noted. 2. The middle cranial fossae are largely obscured by streak artifact. 3. No acute intracranial hemorrhage is identified. Dictated By:Hansel Veronicaigned By:Hansel Veronicaigned Date/Time:04/30/21 1500DD/ 1303 Discharge Plan Discharge Patient Disposition: Home Clinical Impression: Laceration of scalp, Headache, Fall, Parkinson disease Condition: Stable Prescriptions: New acetaminophen 500 mg tablet 500 mg PO Q6H PRN (Reason: pain) 5 Days Qty: 20 RF: 0 No Action omeprazole 40 mg capsule,delayed release(DR/EC) 40 mg PO BID RF: 0 oxybutynin chloride 10 mg tablet extended release 24hr 10 mg PO ONCE RF: 0 Symbicort 160-4.5 mcg/actuation HFA aerosol inhaler 2 puff INHALATION BID RF: 0 albuterol sulfate 90 mcg/actuation HFA aerosol inhaler 2 puff INHALATION Q6H PRN (Reason: Shortness Of Breath) RF: 0 Zyrtec 10 mg capsule 10 mg PO ONCE RF: 0 magnesium oxide 400 mg magnesium capsule 400 mg PO ONCE RF: 0 calcium carbonate-vitamin D3 [Calcium with Vitamin D] 600 mg(1,500mg) -400 unit tablet 1 tab PO BID RF: 0 triamcinolone acetonide [Nasacort] 55 mcg aerosol,spray 1 spray INTRANASAL BID RF: 0 mupirocin 2 % ointment 1 applic topical TID Qty: 22 RF: 0 doxycycline hyclate 100 mg capsule 100 mg PO BID Qty: 28 RF: 0 sennosides [senna] 8.6 mg tablet 8.6 mg PO BID PRN (Reason: Constipation) RF: 0 Botox 100 unit recon soln 300 unit SUBCUT ONCE Qty: 1 RF: 0 (DME) Motorized Wheelchair See Rx Instructions .Route .MEDSUPPLY Qty: 1 RF: 0 carbidopa-levodopa 25-250 mg tablet See Rx Instructions .ROUTE .COMPLEX Qty: 210 RF: 0 gabapentin 100 mg Capsule 100 mg PO TID RF: 0 Discharge Orders: Discharge ED (Routine); Ordered 04/30/21 Ordered By: Justice Lindsey Referrals: Ricarda Duffy MD [Primary Care Provider] - Discharge Diet: Advance as tolerated Discharge Activity: Resume usual activity Patient Instructions: Concussion (ED), Head Laceration (ED) Activity Restrictions/Additional Instructions: Your suture(s) need to be removed in 10 to 14 days. Come back to the emergency room you have any more bleeding, headache, focal weakness, numbness, loss of consciousness, or any new concerning complaints Coding Level of Care Code ED Nursing Home Director for Christel Fabian
[2021-04-30 15:08] LABS: Basophils % 0.5 %; Eosinophils # 0.1 10^3/uL (0.0-0.8); Eosinophils % 1.2 %; Hematocrit 39.6 % (37.0-47.0); Hemoglobin 12.3 g/dL (11.5-15.3); Lymphocytes # 1.2 10^3/uL (0.8-4.8); Lymphocytes % 20.4 %; Mean Corpuscular HGB Conc 31.1 g/dL (30.0-36.0); Mean Corpuscular Hemoglobin 28.3 pg (28.0-34.0); Mean Platelet Volume 12.3 fL (7.4-10.4); Monocytes # 0.4 10^3/uL (0.2-0.9); Monocytes % 6.5 %; Neutrophils # 4.03 10^3/uL (1.8-7.7); Neutrophils % 70.9 %; Nucleated Red Blood Cells % 0 %; Platelet Count 158 10^3/cmm (130-400); Red Blood Count 4.35 10^6/uL (4.1-5.3); White Blood Count 5.7 10^3/uL (4.0-10.0)
[2021-04-30 15:29] LABS: Troponin T (5th) Once 39 ng/L (0-10)
--- NOTE | 2021-04-30 15:29 | ECG_ITS ---
[facility] Test Date: 2021-04-30 Pat Name: Liliana Davis Department: Room: Gender: Female International Organizer: : 1960 Requested By: Justice Lindsey Order Number: [id number] Reading MD: Juana Chairez M.D. Measurements Intervals [place] Rate: 89 P: 18 KS: 135 QRS: -21 QRSD: 86 T: 31 QT: 343 QTc: 419 Interpretive Statements SINUS RHYTHM BORDERLINE LEFT AXIS DEVIATION [QRS AXIS < -20] Compared to ECG 04/30/2021 14:56:18 No significant changes Electronically Signed On 04-30-2021 20:56:57 SAMPLE HAND by Juana Chairez M.D. [id number]
[2021-04-30 15:30] LABS: Partial Thromboplastin Time 21.2 SECONDS (23.9-36.7)
[2021-04-30 15:33] VITALS: BP 144/86; PULSE 86; RESP 16; O2SAT 95
[2021-04-30 15:35] LABS: INR 0.95 (0.8-1.2)
[2021-04-30 15:44] LABS: Anion Gap 18.8 (5-19); Blood Urea Nitrogen 12 mg/dL (6-20); Calcium 8.5 mg/dL (8.5-10.5); Carbon Dioxide 24 mmol/L (22-29); Chloride 102 mmol/L (98-107); Glomerular Filtration Rate 126.3 mL/min (90-130); Glucose 78 mg/dL (65-115); Osmolality Calculated 289 mOsm/kg (285-295); Potassium 4.8 mmol/L (3.5-5.1); Sodium 140 mmol/L (136-145)
[2021-04-30 17:20] VITALS: BP 130/78; PULSE 86; RESP 16; O2SAT 98
[2021-04-30 17:25] LABS: Troponin T (5th) Once 41 ng/L (0-10)
--- NOTE | 2021-05-01 12:51 | DCPLANNER ---
commercial lending relationship manager had message to speak with patient about getting a follow up appointment with primary care. commercial lending relationship manager spoke with patient and asked if immigration case worker could help make a follow up appointment for patient with primary care. Patient stated that she has made an appointment with her primary care. No case management needs at this time.
== END 2021-04-30 19:23 | disposition home or self-care (01) ==
PROVIDERS: Emergency Provider Emergency Medicine; PCP Internal Medicine
DX: S01.01XA Laceration without foreign body of scalp, initial encounter (principal); R51.9 Headache, unspecified; G20 Parkinson's disease; W19.XXXA Unspecified fall, initial encounter
CPT/HCPCS: 12001; 70450; 80048; 84484; 85025; 85610; 85730; 93005; 99283

== ENCOUNTER → 2022-02-20 13:28 | Outpatient (BNVA) | payer MEDICARE, OTHER, SELFPAY | PROVIDERS: PCP Internal Medicine; Visit Provider Nurse Practitioner Family | DX: N39.8 Other specified disorders of urinary system (principal); N39.46 Mixed incontinence | CPT/HCPCS: 99203 ==

== ENCOUNTER → 2022-03-04 10:23 | Outpatient (BNVA) | payer MEDICARE, OTHER, SELFPAY | PROVIDERS: PCP Internal Medicine; Visit Provider Nurse Practitioner Family | DX: N39.46 Mixed incontinence (principal); N39.9 Disorder of urinary system, unspecified | CPT/HCPCS: 51702 ==

== ENCOUNTER → 2022-04-02 13:45 | Outpatient (BNVA) | payer MEDICARE, OTHER, SELFPAY | PROVIDERS: PCP Internal Medicine; Visit Provider Urology | DX: R33.9 Retention of urine, unspecified (principal); N39.9 Disorder of urinary system, unspecified | CPT/HCPCS: 51702 ==

== ENCOUNTER → 2022-05-21 10:27 | Outpatient (BNVA) | payer MEDICARE, OTHER, SELFPAY | PROVIDERS: PCP Internal Medicine; Visit Provider Specialist | DX: G20 Parkinson's disease (principal); G90.3 Multi-system degeneration of the autonomic nervous system; G24.3 Spasmodic torticollis | CPT/HCPCS: 99213 ==

== ENCOUNTER → 2022-11-19 12:34 | Outpatient (BNVA) | payer MEDICARE, OTHER, SELFPAY | PROVIDERS: PCP Internal Medicine; Visit Provider Specialist | DX: G90.3 Multi-system degeneration of the autonomic nervous system (principal); G20 Parkinson's disease; G24.3 Spasmodic torticollis | CPT/HCPCS: 99214 ==

== ENCOUNTER → 2022-12-31 12:57 | Outpatient (BNVA) | payer MEDICARE, OTHER, SELFPAY | PROVIDERS: PCP Internal Medicine; Visit Provider Surgery | DX: G90.3 Multi-system degeneration of the autonomic nervous system (principal); G24.3 Spasmodic torticollis; G20 Parkinson's disease; R13.10 Dysphagia, unspecified; Z86.010 Personal history of colon polyps | CPT/HCPCS: 99203 ==

== ENCOUNTER 2023-01-03 07:18 | Day surgery (SDC) | payer MEDICARE, OTHER, SELFPAY ==
[2023-01-02 09:07] VITALS: BMI 24.5
[2023-01-03 07:50] VITALS: BP 114/64; PULSE 90; RESP 18; TEMP 36.5; O2SAT 93
[2023-01-03] MEDS: sodium chloride 0.9% 1,000 ML 30 ML IV (08:15)
--- NOTE | 2023-01-03 08:22 | ANES.PREANE2 ---
Pre-Anesthetic Assessment Height/Weight: Height 1.68 m Weight 68.946 kg Temp Pulse Resp BP Pulse Ox O2 Del Method 97.7 F 90 18 114/64 93 Room Air 01/03/23 07:50 01/03/23 07:50 01/03/23 07:50 01/03/23 07:50 01/03/23 07:50 01/03/23 07:50 Operation Date: 01/03/23 09:00 Proposed Procedures p 90300 colon and PEG tube placement 91747 in GI dept Z86.010,R13.10(Not Applicable) - DO elaine Lynn PEG Tube Insertion(Not Applicable) - Wil Ackerman DO Familial anesthetic complications: none Was Beta Elias taken within 24 hours: N/A Was Clonidine taken within 24 hours: N/A Last intake: Intake Gatorade only yesterday Last Liquid Date 01/02/23 Last Liquid Time 23:55 Last Solid Date 01/01/23 Last Solid Time 20:00 Social No alcohol and No tobacco Exam alert, oriented x 3, clear to auscultation bilaterally and regular rate & rhythm Airway Mallampati: Class II Dentition: full and other (poor dentition) Pulmonary Asthma CV/HEM Anemia and Hypertension states often has low BP GI Gastroesophageal Reflux Disease Musc/skel muscle stiffness w/ decreased Neck extension and overall kyphotic posture d/t musculature, not bony deformity Neuropsych parkinson's Anesthetic Plan ASA status: 4 Anesthesia: MAC Risk of > 500 ml blood loss (7ml/kg in children): No Medications/Allergies Home Medications Medication Instructions Recorded Confirmed Last Taken Type albuterol sulfate 90 mcg/actuation 2 puff inhalation Q6H PRN 05/11/19 01/02/23 01/02/23 History aerosol inhaler Shortness Of Breath calcium carbonate 600 mg-vitamin 1 tab PO BID 05/11/19 01/02/23 01/02/23 History D3 10 mcg (400 unit) tablet (Calcium with Vitamin D) cetirizine 10 mg capsule (Zyrtec) 10 mg PO DAILY 05/11/19 01/02/23 01/02/23 History omeprazole 40 mg capsule,delayed 40 mg PO BID 05/11/19 01/02/23 01/02/23 History release triamcinolone acetonide 55 mcg 1 spray intranasal BID 05/11/19 01/02/23 01/02/23 History nasal spray aerosol (Nasacort) gabapentin 100 mg capsule 100 mg PO TID 08/29/19 01/02/23 01/02/23 History sennosides 8.6 mg tablet (senna) 8.6 mg PO BID PRN Constipation 02/01/20 01/02/23 01/02/23 History oxybutynin chloride 5 mg tablet 5 mg PO DAILY PRN Pain 02/20/22 01/02/23 01/02/23 History tramadol 50 mg tablet 50 mg PO Q8H PRN Pain 02/20/22 01/02/23 01/02/23 History venlafaxine 75 mg tablet 75 mg PO DAILY 02/20/22 01/02/23 01/02/23 History carbidopa ER 25 mg-levodopa 100 mg 1 tab PO QPM 01/02/23 01/02/23 01/02/23 History tablet,extended release carbidopa ER 25 mg-levodopa 100 mg See Rx Instructions .Route .COMPLEX 01/02/23 01/02/23 01/02/23 History tablet,extended release docusate sodium 50 mg/5 mL oral 200 mg PO DAILY PRN Constipation 01/02/23 01/02/23 01/02/23 History liquid furosemide 20 mg tablet 20 mg PO BID 01/02/23 01/02/23 01/02/23 History magnesium oxide 250 mg PO DAILY 01/02/23 01/02/23 01/02/23 History tiotropium bromide 2.5 2 puff inhalation BID 01/02/23 01/02/23 01/02/23 History mcg/actuation mist for inhalation (Spiriva Respimat) Allergies Allergy/AdvReac Type Severity Reaction Status Date / Time aspirin Allergy swelling Verified 01/02/23 09:07 Current Medications Generic Name Dose Route Start Last Admin Trade Name Freq PRN Reason Stop Dose Admin Sodium Chloride 1,000 mls @ 30 mls/hr 01/03/23 07:30 01/03/23 08:15 Sodium Chloride 0.9% IV 01/04/23 07:29 30 mls/hr .Q24H DEBORA Administration PFSH Anesthesia Medical History (Updated 12/31/22 @ 14:23 by Wil Ackerman DO) Asthma Closed intertrochanteric fracture of right hip HX: benign breast biopsy Mixed stress and urge urinary incontinence Overactive bladder Superficial postoperative wound infection Urinary retention Voiding dysfunction Surgical History (Updated 12/31/22 @ 14:23 by Wil Ackerman DO) H/O tubal ligation History of back surgery History of hip surgery Hx of tonsillectomy Family History Mother , at age 46 Cancer malignant melanoma Father , at age 58 Cancer malignant melanoma Social History Smoking and tobacco status: never smoked Alcohol intake: never Substance/Drug Use: never Marital status: Current occupational status: disabled Data Anesthesia Cardiac Studies: No Data to Display
--- NOTE | 2023-01-03 09:24 | P.HPUD_ITS ---
Surgery/Procedure H&P Update DATE OF PROCEDURE: January 03, 2023 DATE H&P PERFORMED: 12/31/22 H&P UPDATE INFORMATION: I have reviewed H&P completed within last 30 days, I have examined patient prior to procedure and No changes to prior documentation PLANNED PROCEDURE: Operation Date: 01/03/23 09:00 Proposed Procedures p 15288 colon and PEG tube placement 64870 in GI dept Z86.010,R13.10(Not Applica ble) - Wil Ackerman DO s PEG Tube Insertion(Not Applicable) - Wil Ackerman DO
--- NOTE | 2023-01-03 09:50 | PC.NURSE ---
Addendum entered by Ariana Marrero RN 01/03/23 09:51: PT RECEIVED 3CC INSTEAD OF 9 Original Note: PT RECEIVED 9CC OF LIDOCAINE TO INCISION AREA PRIOR TO PEG TUBE INSERTION
[2023-01-03 10:19] VITALS: BP 126/67; PULSE 88; RESP 16; TEMP 36.4; O2SAT 97
[2023-01-03 10:30] VITALS: BP 113/70; PULSE 85; RESP 18; O2SAT 95
--- NOTE | 2023-01-03 10:45 | ANE.PACU2 ---
Inpatient post-anesthesia follow up: Airway intact: Yes Vital signs: Temperature 97.6 F Pulse Rate 85 Respiratory Rate 18 Blood Pressure 113/70 Pulse Oximetry 95 Oxygen Delivery Me thod Room Air Oxygen Flow Rate Fraction of Inspir ed Oxygen Hydration adequate: Yes Nausea and vomiting: No Pain level: 1 Mental status: Baseline
== END 2023-01-03 10:48 | disposition home or self-care (01) ==
PROVIDERS: PCP Family Medicine; Visit Provider Surgery
PROC: 0DH63UZ Insertion of Feeding Device into Stomach, Percutaneous Approach (ICD-10-PCS; CPT 43246; 2023-01-03 09:00)
PROC: 0DJD8ZZ Inspection of Lower Intestinal Tract, Via Natural or Artificial Opening Endoscopic (ICD-10-PCS; CPT 45378; 2023-01-03 09:00)
DX: Z86.010 Personal history of colon polyps (principal); R13.10 Dysphagia, unspecified; G90.3 Multi-system degeneration of the autonomic nervous system; G24.3 Spasmodic torticollis; G20 Parkinson's disease; I10 Essential (primary) hypertension; K21.9 Gastro-esophageal reflux disease without esophagitis
CPT/HCPCS: 43246; G0121; J2704; J7030

== ENCOUNTER → 2023-01-21 13:00 | Outpatient (BNVA) | payer MEDICARE, OTHER, SELFPAY | PROVIDERS: PCP Family Medicine; Visit Provider Surgery | DX: Z09 Encounter for follow-up examination after completed treatment for conditions other than malignant neoplasm (principal) | CPT/HCPCS: 99213 ==

== ENCOUNTER 2023-03-25 12:54 | Inpatient (IN) | payer MEDICARE, OTHER, SELFPAY ==
[2023-03-25] VITALS (9 sets, daily range): BP systolic 105–122; BP diastolic 39–74; PULSE 0–107; RESP 16–30; TEMP 37.4–38.9; O2SAT 93–97; BMI 25.2; BMI 26.9
--- NOTE | 2023-03-25 13:11 | XRR_ITS ---
PROCEDURE INFORMATION: Exam: XR Chest Exam date and time: 03/25/2023 1:46 PM Age: 62 years old Clinical indication: Cough and dyspnea and orthopnea (sob when lying down); Additional info: Dyspnea/cough TECHNIQUE: Imaging protocol: Radiologic exam of the chest. Views: 1 view. COMPARISON: CR XR chest 1V portable [id number] 08/29/2019 6:28 AM FINDINGS: Lungs: Relative elevation of the right hemidiaphragm with atelectasis in the left lower lobe. A superimposed infiltrate may be present given the density there. Mild chronic interstitial prominence. Pleural spaces: Unremarkable. No pleural effusion. No pneumothorax. Heart/Mediastinum: See Vasculature finding. Vasculature: Mild cardiomegaly and uncoiling of the thoracic aorta accentuated by the AP positioning. Bones/joints: Unremarkable. XR/XR chest 1V portable [id number] IMPRESSION: Left lower lobe atelectasis, possibly with a superimposed pneumonia.
--- NOTE | 2023-03-25 13:12 | ECG_ITS ---
[facility] Test Date: 2023-03-25 Pat Name: Liliana Davis Department: Room: Gender: Female Bridal Consultant: : 1960 Requested By: Luis Fernando Bradshaw Order Number: [id number] Reading MD: Landon Tijerina M.D. Measurements Intervals [place] Rate: 109 P: 27 CT: 138 QRS: -3 QRSD: 86 T: 32 QT: 309 QTc: 417 Interpretive Statements SINUS TACHYCARDIA LOW QRS VOLTAGE IN PRECORDIAL LEADS [QRS DEFLECTION < 1.0 mV IN CHEST LEADS] ABNORMAL RHYTHM ECG Compared to ECG 04/30/2021 15:48:44 No significant change Electronically Signed On 03-25-2023 16:51:50 [employer] FACTORY WORKERS by Landon Tijerina M.D. [id number]
--- NOTE | 2023-03-25 13:27 | PC.PHAR ---
PT IS FROM JJ THOMPSON 03/25/23
[2023-03-25 13:30] LABS: ABG PCO2 43.4 mmHg (35-45); ABG PH Result 7.49 (7.35-7.45); Alveolar-Arterial Oxygen Gradi 6.4 mmHg (5-10); Arterial Blood Gas Hematocrit 22.6 % (37-47); Base Excess ABG 8.4 mmol/L (-2.0-2.0); Blood Gas Allen Test Pos; Blood Gas Operator Identificat MONRO; Blood Gas Sample Site Radial, left; Blood Gas Sample Type Arterial; HCO3 ABG 32.6 mmol/L (22-26); HGB O2 Sat 82.6 % (95-100); Ionized Calcium Level - ABG 1.1 mmol/L (1.1-1.4); Methemoglobin 0.8 % (0.4-1.5); Oxygen Device ROOM AIR; Oxygen Saturation ABG 85.8; PO2 ABG 48.6 mmHg (80.0-100.0); PO2 FiO2 Ratio Arterial Blood 0; Potassium Level - ABG 4.6 mmol/L (3.5-5.0); Total Hemoglobin 7.4 g/dL (12-16)
--- NOTE | 2023-03-25 13:32 | ED_ITS ---
HPI - SOB/Dyspnea 2 General: Chief Complaint: Shortness of Breath/Dyspnea Stated Complaint: SOB Time Seen by Provider: 03/25/23 13:09 Source: patient Mode of arrival: EMS History of Present Illness: HPI Narrative: 62-year-old female resident group home presents emergency room with cough and hypoxia generalized decline. Cough been moderately productive she also has a temp up to 102 did been screening irregularly at the group home for COVID which has consistently been negative including a recent antigen. She has a history of Parkinson's and has had relatively significant decline recently. Normally patient is not on oxygen on room air patient was 71% at the group home with temp 101 on 3 L she improved to 80% after DuoNeb she improved into the mid 90s on 3 L she still requiring 3 L here in the emergency room. She denies any abdominal or chest pain denies any dysuria urgency or frequency. MD elicited complaint: shortness of breath and cough Exacerbating factors: coughing Relieving factors: oxygen, rest and bronchodilators Associated symptoms: Reports chest congestion and orthopnea; Deny abdominal pain, chest pain, cough, diaphoresis, dizziness, extremity pain, fever(s), hemoptysis, lightheadedness, myalgias, nausea, palpitations, paresthesias, polydipsia, polyuria, rash, sense of impending doom, syncope or vomiting Treatment prior to arrival: oxygen and bronchodilator Review of Systems 2 Const: Denies: fever(s), chills or diaphoresis Card: Reports: orthopnea; Denies: chest pain, palpitations, lightheadedness or syncope Resp: Reports: dyspnea, non-productive cough and chest congestion; Denies: hemoptysis GI: Denies: abdominal pain, nausea or vomiting : Denies: dysuria, urinary frequency or urinary urgency Musc: Denies: neck pain, back pain or extremity pain Skin/Breast: Denies: rash Neuro: Denies: dizziness Endo: Denies: polyuria or polydipsia PFSH ED 2 PFSH: Medical History Overactive bladder HX: benign breast biopsy Urinary retention Voiding dysfunction Mixed stress and urge urinary incontinence Superficial postoperative wound infection Asthma Closed intertrochanteric fracture of right hip Surgical History History of hip surgery History of back surgery Hx of tonsillectomy H/O tubal ligation Family History Mother , at age 46 Cancer malignant melanoma Father , at age 58 Cancer malignant melanoma Social History Smoking and tobacco/nicotine status: never used tobacco/nicotine Alcohol intake: never Substance/Drug Use: never Marital status: Current occupational status: disabled Physical Exam 2 Const: COMMON NORMALS: no acute distress GENERAL APPEARANCE: cooperative and comfortable ORIENTATION/CONSCIOUSNESS: Yes awake, Yes oriented to person, Yes oriented to place and Yes oriented to time HENMT: COMMON NORMALS: normocephalic, atraumatic and hearing grossly normal bilaterally HEAD & SCALP: normocephalic and atraumatic Resp: COMMON NORMALS: normal respiratory effort, No retractions and No use of accessory muscles AUSCULTATION: rhonchi and wheezes Cardio: COMMON NORMALS: regular rate, regular rhythm and No murmurs present (Cardio) RATE: regular rate RHYTHM: regular rhythm GI: COMMON NORMALS: Soft to palpation and No hepatosplenomegaly present A USCULTATION: Yes normoactive bowel sounds PALPATION: Yes Soft to palpation, No Tenderness to palpation present (GI), No Guarding due to palpation present (GI) and Yes No hepatosplenomegaly present Extremity: COMMON NORMALS: normal to inspection, capillary refill normal, no clubbing, cyanosis or edema, no calf tenderness and no pedal edema Neuro: SENSORIUM/ORIENTATION: Yes oriented to person, Yes oriented to place and Yes oriented to time Skin: COMMON NORMALS: no rashes or lesions noted GENERAL SKIN EXAM: no rashes or lesions noted Course 2 Vital Signs: Vital signs: Vital Signs Temperature 102.0 F H 03/25/23 12:58 Pulse Rate 107 H 03/25/23 12:58 Respiratory Rate 30 H 03/25/23 12:58 Blood Pressure 113/66 03/25/23 12:58 Pulse Oximetry 93 03/25/23 12:58 Oxygen Delivery Me thod Room Air 03/25/23 12:58 MDM - SOB/Dyspnea Medical Decision Making Pneumonia suspect aspiration of started Zosyn discussed with hospitalist will admit. She is also significantly anemic family states she has been anemic in the past they are not sure of the exact etiology patient said at 1 time it was due to a hip arthroplasty. She does have a history of colon polyps she has not noticed any hematochezia or melena. Will admit for pneumonia with hypoxia she is now requiring 3 L discussed with hospitalist orders written Medical Records I reviewed the patient's medical records. Lab Data I reviewed the patient's lab results. 03/25/23 13:21 03/25/23 13:21 Labs/Radiology: Radiology Impressions Chest X-Ray 03/25/23 13:11 IMPRESSION: Left lower lobe atelectasis, possibly with a superimposed pneumonia. Laboratory Results WBC 2.93 10^3/uL (3.29-11.43) L 03/25/23 13:21 RBC 1.95 10^6/uL (3.85-5.65) L 03/25/23 13:21 Hgb 7.10 g/dL (11.27-16.99) L 03/25/23 13:21 Hct 22.2 % (36-47) L 03/25/23 13:21 MCV 113.8 fl (85-98) H 03/25/23 13:21 MCH 36.4 pg (27-33) H 03/25/23 13:21 MCHC 32.0 g/dL (30-55) 03/25/23 13:21 RDW 21.6 % (12.1-15.1) H 03/25/23 13:21 Plt Count 186 10^3/cmm (157-399) 03/25/23 13:21 MPV 10.1 fL (7.4-10.4) 03/25/23 13:21 Lymph % (Auto) Not Reportable 03/25/23 13:21 [place] % (Auto) Not Reportable 03/25/23 13:21 Neut # (Auto) Chief Enterprise Architect 03/25/23 13:21 Lymph # (Auto) Not Reportable 03/25/23 13:21 [place] # (Auto) Not Reportable 03/25/23 13:21 Total Counted 100 (0-100) 03/25/23 13:21 Atypical Lymphs % 20.0 % (0-5) H 03/25/23 13:21 Absolute Neutrophils 0.9 10^3/cmm (1.4-6.5) L 03/25/23 13:21 Segmented Neutrophils 30 % 03/25/23 13:21 Abs Segm Neuts (Man) 0.9 10/cmm (1.6-7.1) L 03/25/23 13:21 Band Neutrophils 2.0 % 03/25/23 13:21 Abs Band Neuts (Man) 0.1 10^3/cmm (0.0-1.2) 03/25/23 13:21 Absolute Lymphocytes 2.0 10^3/cmm (1.2-3.4) 03/25/23 13:21 Lymphocytes (Manual) 48 % 03/25/23 13:21 Monocytes (Manual) 0.0 % 03/25/23 13:21 Absolute Monocytes 0.0 10^3/cmm (0.1-0.6) L 03/25/23 13:21 Eosinophils (Manual) 0 % 03/25/23 13:21 Absolute Eosinophils 0.0 10^3/cmm (0.0-0.7) 03/25/23 13:21 Basophils (Manual) 0.0 % 03/25/23 13:21 Absolute Basophils 0.0 10^3/cmm (0.0-0.2) 03/25/23 13:21 Nucleated RBCs 1.0 /100WBC (0-1) 03/25/23 13:21 Platelet Estimate Normal (Normal) 03/25/23 13:21 Hypochromasia 1+ H 03/25/23 13:21 Anisocytosis 2+ H 03/25/23 13:21 Macrocytosis 1+ H 03/25/23 13:21 Specimen Type Arterial 03/25/23 13:17 Sample Site Radial, left 03/25/23 13:17 ABG pH 7.49 (7.35-7.45) H 03/25/23 13:17 ABG pCO2 43.4 mmHg (35-45) 03/25/23 13:17 ABG pO2 48.6 mmHg (80.0-100.0) L 03/25/23 13:17 ABG PO2/FiO2 Ratio 0 03/25/23 13:17 ABG HCO3 32.6 mmol/L (22-26) H 03/25/23 13:17 ABG O2 Saturation 85.8 03/25/23 13:17 ABG Base Excess 8.4 mmol/L (-2.0-2.0) H 03/25/23 13:17 Faraz Test Pos 03/25/23 13:17 A-a O2 Gradient 6.4 mmHg (5-10) 03/25/23 13:17 Hematocrit 22.6 % (37-47) L 03/25/23 13:17 Hgb O2 Saturation 82.6 % (95-100) L 03/25/23 13:17 Carboxyhemoglobin 3.0 %THgb (0.4-20.1) 03/25/23 13:17 Methemoglobin 0.8 % (0.4-1.5) 03/25/23 13:17 Total Hemoglobin 7.4 g/dL (12-16) L 03/25/23 13:17 Sodium 141.0 mmol/L (131-143) 03/25/23 13:17 Potassium 4.6 mmol/L (3.5-5.0) 03/25/23 13:17 Glucose 130.0 mg/dL (70-115) H 03/25/23 13:17 Ionized Calcium 1.1 mmol/L (1.1-1.4) 03/25/23 13:17 O2 Delivery Device Room air 03/25/23 13:17 FiO2 21.0 % 03/25/23 13:17 Outside Event Sales Specialist ID Paularo 03/25/23 13:17 Sodium 138 mmol/L (136-145) 03/25/23 13:21 Potassium 4.8 mmol/L (3.5-5.1) 03/25/23 13:21 Chloride 97 mmol/L (98-107) L 03/25/23 13:21 Carbon Dioxide 29 mmol/L (22-29) 03/25/23 13:21 Anion Gap 16.8 (5-19) 03/25/23 13:21 BUN 28 mg/dL (8-23) H 03/25/23 13:21 Creatinine 0.6 mg/dL (0.5-0.9) 03/25/23 13:21 GFR Calculation 101.6 mL/min (90-130) 03/25/23 13:21 Glucose 136 mg/dL (65-115) H 03/25/23 13:21 Calculated Osmolality 294 mOsm/kg (285-295) 03/25/23 13:21 Lactic Acid 2.2 mmol/L (0.5-2.2) 03/25/23 13:21 Calcium 8.6 mg/dL (8.5-10.5) 03/25/23 13:21 Total Bilirubin 0.9 mg/dL (0.15-1.2) 03/25/23 13:21 AST 41 U/L (0-32) H 03/25/23 13:21 ALT 11 U/L (0-33) 03/25/23 13:21 Alkaline Phosphatase 131 U/L (35-105) H 03/25/23 13:21 Creatine Kinase 30 U/L (26-192) 03/25/23 13:21 Troponin T Baseline 138 ng/L (0-10) H* 03/25/23 13:21 NT-Pro-B Natriuret Pep 5372 pg/mL (0-125) H 03/25/23 13:21 Total Protein 6.5 g/dL (6.6-8.7) L 03/25/23 13:21 Albumin 3.9 g/dL (3.5-5.2) 03/25/23 13:21 Globulin 2.6 g/dL (1.3-4.6) 03/25/23 13:21 Crossmatch See Detail 03/25/23 15:20 All radiology interpretation(s) finalized by discharge Discharge Plan Discharge Patient Disposition: Admitted As Inpatient Clinical Impression: Aspiration pneumonia, Parkinson's disease, Urinary retention, Anemia Condition: Stable Coding Level of Care Code ED Applications System Analyst for Christel Fabian
[2023-03-25 13:43] LABS: Hematocrit 22.2 % (36-47); Mean Corpuscular Hemoglobin 36.4 pg (27-33); Mean Corpuscular Volume 113.8 fl (85-98); Mean Platelet Volume 10.1 fL (7.4-10.4); Platelet Count 186 10^3/cmm (157-399); Red Blood Count 1.95 10^6/uL (3.85-5.65); Red Cell Distribution Width 21.6 % (12.1-15.1); White Blood Count 2.93 10^3/uL (3.29-11.43)
[2023-03-25 14:02] LABS: Lactic Sepsis W/Reflex 2.2 mmol/L (0.5-2.2)
[2023-03-25 14:07] LABS: Troponin(5th) Baseline 138 ng/L (0-10)
[2023-03-25 14:14] LABS: Alanine Aminotransferase 11 U/L (0-33); Albumin Level 3.9 g/dL (3.5-5.2); Alkaline Phosphatase 131 U/L (35-105); Anion Gap 16.8 (5-19); Aspartate Amino Transferase 41 U/L (0-32); Blood Urea Nitrogen 28 mg/dL (8-23); Calcium 8.6 mg/dL (8.5-10.5); Carbon Dioxide 29 mmol/L (22-29); Chloride 97 mmol/L (98-107); Creatine Phosphokinase 30 U/L (26-192); Globulin 2.6 g/dL (1.3-4.6); Glomerular Filtration Rate 101.6 mL/min (90-130); Glucose 136 mg/dL (65-115); NT Pro B Type Natriuretic Pept 5372 pg/mL (0-125); Osmolality Calculated 294 mOsm/kg (285-295); Potassium 4.8 mmol/L (3.5-5.1); Sodium 138 mmol/L (136-145); Total Bilirubin 0.9 mg/dL (0.15-1.2); Total Protein 6.5 g/dL (6.6-8.7)
[2023-03-25 14:20] LABS: Slide Review Slide Review Perform
[2023-03-25 14:21] LABS: Total Cells Counted 100 (0-100)
[2023-03-25 14:34] LABS: Absolute Neutrophil 0.9 10^3/cmm (1.4-6.5); Absolute Segmented Neutrophil 0.9 10/cmm (1.6-7.1); Band Neutrophils Absolute 0.1 10^3/cmm (0.0-1.2); Eosinophils 0 %; Lymphocytes 48 %; Platelet Estimate Normal (Normal)
[2023-03-25 14:35] LABS: Anisocytosis 2+; Hypochromasia 1+; Macrocytosis 1+
[2023-03-25 14:38] LABS: Segmented Neutrophils 30 %
[2023-03-25] MEDS: piperacillin-tazobactam 3.375 GM in sodium chloride 0.9% (plus) 50 ML IV ×2 (14:49→21:46)
[2023-03-25] MEDS: acetaminophen 650 mg/20.3 mL UDC PEG-TUBE (14:57)
[2023-03-25 15:22] LABS: Reflex Lactate Order REFLEX LACTIC ORDERD
--- NOTE | 2023-03-25 15:28 | ECG_ITS ---
Test Date: 2023-03-25 Pat Name: Liliana Davis Department: Room: Gender: Female Crib Tender: : 1960 Requested By: Luis Fernando Bradshaw Order Number: [id number] Matilda MD: Landon Tijerina M.D. Measurements Intervals [place] Rate: 97 P: 23 UT: 139 QRS: 2 QRSD: 84 T: 31 QT: 336 QTc: 428 Interpretive Statements SINUS RHYTHM LOW QRS VOLTAGE IN PRECORDIAL LEADS [QRS DEFLECTION < 1.0 mV IN CHEST LEADS] Compared to ECG 03/25/2023 13:20:05 No significant change Electronically Signed On 03-25-2023 17:05:26 COMBINATION BUILDING INSPECTOR by Landon Tijerina M.D. [email or web address]
[2023-03-25 15:47] LABS: Troponin 5 2HR Delta 9.9 ABS# (0-10)
[2023-03-25 16:00] LABS: Troponin 5 2HR 147.9 ng/L (0-10)
[2023-03-25 16:41] LABS: Add Urine Microscopic? YES; Bilirubin Urine Neg (Negative); Blood Urine Trace (Negative); Glucose Urine UA Norm (Normal); Ketones Urine Negative (Negative); Leukocyte Esterase Urine 1+ (Negative); Nitrate Urine Negative (Negative); Protein Urine Neg (Negative); Specific Gravity, Urine 1.015 (1.005-1.030); Sulfosalicylic Acid Urine Positive (Negative); Urine Appearance Cloudy (CLEAR); Urine Color Dark Yellow (Yellow); Urobilinogen Urine Norm (Negative); pH Urine 8 (5-7)
[2023-03-25 16:50] LABS: Amorphous Sediment Urine 1+ /hpf; Bacteria Urine 1+ /hpf; Mucus Urine TRACE /hpf; RBC Urine 0-4 /hpf (0-2); Squamous Epithelial Cell Urine RARE /hpf (0-5); Transitional Epi Cells Urine RARE /hpf; WBC Urine 0-4 /hpf (0-5)
[2023-03-25 16:51] LABS: Lactic Acid level (Lactate) 1.8 mmol/L (0.5-2.2)
[2023-03-25 16:51] LABS: Add Urine Culture? No
--- NOTE | 2023-03-25 17:28 | P.HP_ITS ---
Providers/Chief Complaint 2 Admitting Physician: Ismael Winters MD Primary Care Provider: Daysi Lopez MD Chief Complaint: SOB History of Present Illness Liliana Davis is a 62 year old female with past medical history of Parkinson's, prison resident, PEG tube feeding with recent history of multiple aspirations was brought into the ER from the prison today because of difficulty in breathing which started today morning along with high-grade fever. As per the family members at bedside patient has had issues with aspiration recently within the last 1 month with episodes of choking even on her spit. Patient continues to get PEG tube feeds 3 times per day at prison along with oral intake which has been cutting down recently. Patient has baseline is not on oxygen but in the ER required up to 2 L of oxygen supplementation. On presentation to the ER she had a fever up to 102 Fahrenheit. Patient denies having any episodes of diarrhea, loss of blood, dizziness. On review of labs recently within last 1 month patient's hemoglobin was found to be 13 at the prison. Review of Systems 2 General: Reports: 10 or more systems reviewed and unremarkable except in HPI and below Const: Denies: fever(s), chills, body aches, change in appetite, change in weight, malaise, night sweats, diaphoresis, change in sleep pattern, daytime sleepiness or snoring Eyes: Denies: change in vision, blurry vision, photophobia, eye discomfort or eye discharge ENMT: Denies: throat pain, enlarged tonsils, hoarseness, mouth pain, oral sores, dry mouth, tinnitus, nasal congestion or post nasal drip Card: Denies: chest pain, palpitations, irregular heart rhythm, edema, swelling of feet/ankles, lightheadedness, syncope, pre-syncope, dyspnea on exertion, orthopnea, leg pain with exertion or acrocyanosis Resp: Denies: dyspnea, productive cough, non-productive cough, wheezing, stridor, pain on inspiration, change in phlegm color, hemoptysis or chest congestion GI: Denies: abdominal pain, nausea, vomiting, hematemesis, coffee ground emesis, dysphagia, heartburn, diarrhea, constipation, bloating, GI cramping, change in bowel habits, pain on defecation, hematochezia or melena : Denies: flank pain, dysuria, urinary frequency, urinary urgency, urinary hesitancy, nocturia or hematuria Musc: Denies: neck pain, back pain, extremity pain, joint pain, joint swelling, joint redness, joint stiffness or limited range of motion Neuro: Denies: headache(s), numbness in extremities, weakness in extremities, sensory changes, lack of coordination, difficulty walking, frequent falls, dizziness, vertigo, confusion, Slurred speech present, difficulty communicating thoughts or seizure-like activity Psych: Denies: anxiety, depression, mood swings, panic attacks, hopelessness or irritability Endo: Denies: polyuria, polydipsia, tired all the time, cold intolerance, excessive sweating, flushing or heat intolerance Diego/Lymph: Denies: easy bruising or easy bleeding All/Imm: Denies: tongue swelling, facial swelling or acute wheezing Medications/Allergies Home Medications Medication Instructions Recorded Confirmed Last Taken Type cetirizine 10 mg capsule (Zyrtec) 10 mg feeding tube DAILY 05/11/19 03/25/23 01/02/23 History triamcinolone acetonide 55 mcg 1 spray intranasal BID 05/11/19 03/25/23 01/02/23 History nasal spray aerosol (Nasacort) gabapentin 100 mg capsule 100 mg feeding tube TID 08/29/19 03/25/23 01/02/23 History sennosides 8.6 mg tablet (senna) 8.6 mg feeding tube BID PRN 02/01/20 03/25/23 01/02/23 History Constipation tramadol 50 mg tablet 50 mg PO Q8H PRN Pain 02/20/22 03/25/23 01/02/23 History venlafaxine 75 mg tablet 75 mg feeding tube BID 02/20/22 03/25/23 01/02/23 History carbidopa ER 25 mg-levodopa 100 mg See Rx Instructions .Route .COMPLEX 01/02/23 03/25/23 01/02/23 History tablet,extended release docusate sodium 50 mg/5 mL oral 200 mg feeding tube DAILY PRN 01/02/23 03/25/23 01/02/23 History liquid Constipation furosemide 20 mg tablet 20 mg feeding tube DAILY edema 01/02/23 03/25/23 01/02/23 History magnesium oxide 250 mg feeding tube DAILY 01/02/23 03/25/23 01/02/23 History tiotropium bromide 2.5 2 puff inhalation BID 01/02/23 03/25/23 03/25/23 History mcg/actuation mist for inhalation (Spiriva Respimat) acetaminophen 325 mg tablet See Rx Instructions .Route 03/25/23 03/25/23 Unknown History .COMPLEX PRN Pain, Mild bisacodyl 10 mg rectal suppository 10 mg NM DAILY PRN Constipation 03/25/23 03/25/23 Unknown History (Dulcolax (bisacodyl)) carbidopa 25 mg-levodopa 250 mg See Rx Instructions .Route .COMPLEX 03/25/23 03/25/23 Unknown History tablet loperamide 2 mg capsule 2 mg PO Q6H PRN loose stools 03/25/23 03/25/23 Unknown History magnesium hydroxide 400 mg/5 mL 30 ml PO DAILY PRN Constipation 03/25/23 03/25/23 Unknown History oral suspension (Milk of Magnesia) nystatin 100,000 unit/gram topical See Rx Instructions .Route .COMPLEX 03/25/23 03/25/23 Unknown History powder (Nyamyc) omeprazole 20 mg capsule,delayed 40 mg feeding tube DAILY 03/25/23 03/25/23 Unknown History release polyethylene glycol 3350 17 gram 17 g PO DAILY PRN Constipation 03/25/23 03/25/23 Unknown History oral powder packet (Miralax) sodium phosphates 19 gram-7 118 ml NM DAILY PRN Constipation 03/25/23 03/25/23 Unknown History gram/118 mL enema (Fleet Enema) Allergies Allergy/AdvReac Type Severity Reaction Status Date / Time aspirin Allergy swelling Verified 01/21/23 13:20 PFSH Acute 2 PFSH: Medical History (Updated 03/25/23 @ 17:33 by Ismael Winters MD) History of colon polyps Multiple system atrophy Hip fracture, right Overactive bladder HX: benign breast biopsy Urinary retention Voiding dysfunction Mixed stress and urge urinary incontinence Superficial postoperative wound infection Asthma Closed intertrochanteric fracture of right hip Surgical History (Updated 03/25/23 @ 17:39 by Ismael Winters MD) S/P percutaneous endoscopic gastrostomy (PEG) tube placement History of esophagogastroduodenoscopy (EGD) History of hip surgery History of back surgery Hx of tonsillectomy H/O tubal ligation Family History Mother , at age 46 Cancer malignant melanoma Father , at age 58 Cancer malignant melanoma Social History Smoking and tobacco/nicotine status: never used tobacco/nicotine Alcohol intake: never Substance/Drug Use: never Marital status: Current occupational status: disabled Vitals/I&O/Wt Last Vital Signs Temp 99.9 F H 03/25/23 17:23 Pulse 94 03/25/23 17:23 Resp 30 H 03/25/23 12:58 BP 111/57 03/25/23 17:23 Pulse Ox 96 03/25/23 17:23 O2 Del Method Nasal Cannula 03/25/23 14:00 O2 Flow Rate 3 03/25/23 14:00 Weight last 48 hrs Weight 70.76 kg Physical Exam 2 Narrative: General: No acute distress, AO x3, NC oxygen supplementation, Chronically sick appearing, neck tilted towards the left HEENT: PERRLA, pupils bilaterally equal and reactive Chest: Normal vesicular breath sounds all over lung eric with coarse crackles in right lower zone CVS: S1-S2 regular, no murmurs, no tachycardia, no gallops, no rubs Abdomen: Soft, nontender, no organomegaly, bowel sounds present, morbidly obese Neuro: No focal deficits, no facial deformity, AO x3, power were not assessed Data 03/25/23 13:21 03/25/23 13:21 Micro: Microbiology 03/25/23 13:28 Blood Culture - Preliminary Blood SPECIMEN COLLECTED 03/25/23 13:21 Blood Culture - Preliminary Blood SPECIMEN COLLECTED A&P Assessment and plan (1) Sepsis: Ruled on admission because of fever more than 101 Fahrenheit, leukopenia, source of infection pneumonia with endorgan damage with elevated troponins. Check lactate. Maintain mean artery pressure 65 Follow-up blood culture, check sputum culture. (2) Aspiration pneumonia: High likelihood of aspiration. Patient has baseline Parkinson's, PEG tube but still continues to take oral diet when possible. Recent episodes of choking even on spit. NPO. IV Zosyn. Follow-up blood cultures, check MRSA swab, respiratory viral panel, procalcitonin. Oxygen supplementation keeping saturation over 90%. Continue with PEG feeds at baseline. (3) Dysphagia: (4) Anemia: Baseline hemoglobin seems to be around 12. Currently 7.1. Patient denies having any episodes of bleeding. Also has leukopenia. Repeat CBC. Transfuse if hemoglobin remains below 8. Check vitamin B12, folate, iron panel. Repeat CBC daily. Check stool for occult blood. Protonix 40 mg IV twice daily, Carafate before meals and at bedtime. If stool for occult blood is positive will consult surgery for possible EGD and colonoscopy. As per patient recently had EGD for PEG tube placement within the last 6 months. (5) Cervical dystonia: (6) Parkinson's disease: Continue with home dose of carbidopa/levodopa. Aspiration, seizure precautions. (7) Elevated troponin: Non-ST elevation NH versus demand ischemia. Patient does have acute anemia possibility along with aspiration pneumonitis. Hold off on heparin drip for now given acute anemia. Monitor for chest pain. Currently chest pain-free. Will discuss further with family regarding restratification and ACS workup once patient is more stable. Check A1c, lipid panel. Allergic to aspirin. (8) S/P percutaneous endoscopic gastrostomy (PEG) tube placement: Plan CODE STATUS: Discussed in detail with patient at bedside. She does not want any resuscitation. DNR/DNI. N.p.o., PEG tube feeds at baseline. Protonix for PUD ppx SCDs for DVT prophylaxis, hold off on medical prophylaxis. Attestations 2 Medical Necessity Statement*: Admission: 2 midnights for management of aspiration pneumonitis in a patient with baseline PEG tube placed, parkinsonism Coding Level of Care Code Acute Code for Chg Fwd Diagnoses Sepsis A41.9 Aspiration pneumonia J69.0 Dysphagia R13.10 Anemia D64.9 Cervical dystonia G24.3 Parkinson's disease G20.A1 Elevated troponin R79.89 S/P percutaneous endoscopic gastrostomy (PEG) tube placement Z93.1
[2023-03-25 17:57] LABS: D Dimer 4.97 ug/mLFEU (0-0.59)
[2023-03-25 18:13] LABS: Procalcitonin 0.15 ng/mL (0-0.5)
[2023-03-25 18:34] LABS: Hematocrit 21.8 % (36-47); Lymphocytes # 1.9 10^3/uL (0.8-4.8); Lymphocytes % 45.7 %; Mean Corpuscular HGB Conc 32.1 g/dL (30-55); Mean Corpuscular Hemoglobin 36.5 pg (27-33); Mean Corpuscular Volume 113.5 fl (85-98); Monocytes # 1.6 10^3/uL (0.2-0.9); Neutrophils % 13.3 %; Nucleated Red Blood Cells # 0.1 /100WBC; Nucleated Red Blood Cells % 1.5 %; Platelet Count 183 10^3/cmm (157-399); Red Blood Count 1.92 10^6/uL (3.85-5.65); Red Cell Distribution Width 21.2 % (12.1-15.1); White Blood Count 4.05 10^3/uL (3.29-11.43)
[2023-03-25 19:22] LABS: Slide Review Slide Review Perform
[2023-03-25 19:32] LABS: Neutrophils # 0.54 10^3/uL (1.8-7.7)
--- NOTE | 2023-03-25 19:49 | USCV_ITS ---
Liliana Davis Age: 62 Gender: F : 1960 Exam Date: 03/25/2023 20:14 Ordering Phys: Ismael Winters MD Technologist: QUIANA [place] [facility] [place]: Assess for DVT. There is no lower extremity edema or erythema. Patient is unresponsive in 254-2. HISTORY: Assess for DVT. There is no lower extremity edema or erythema. Patient is unresponsive in 254-2. PROCEDURES: Venous duplex imaging was performed in bilateral lower extremities. The following venous structures were evaluated: common femoral vein, profunda vein, proximal portion of the greater saphenous vein, superficial femoral vein, and the popliteal vein. In addition, the posterior tibial veins were evaluated. Serial compression, augmentation maneuvers, and spectral Doppler flow evaluation were performed, which were normal. Pulsatile venous compartments bilaterally. Bilaterally, the common femoral, superficial femoral, profunda femoral, popliteal, posterior tibial, and greater saphenous veins were identified and interrogated in the standard fashion. These veins were found to be easily compressible with spontaneous blood flow. No evidence of thrombus noted. CONCLUSIONS No evidence of right lower extremity DVT. No evidence of left lower extremity DVT. He Key MD (Electronically Signed) Final Date: 26 March 2023 10:37 S
[2023-03-25 20:25] LABS: Troponin 5 6HR Delta -11.2 ng/L (0-12)
[2023-03-25 20:43] LABS: Iron 159 ug/dL (37-145); Percent Saturation 69.4 % (20-50); Thyroid Stimulating Hormone 0.37 uIU/mL (0.27-4.20); Total Iron Binding Capacity 229 mcg/dl; Unsaturated Iron Binding 70 ug/dL (112-347); Vitamin B12 387 pg/mL (232-1245)
[2023-03-25 20:44] LABS: Troponin 5 6HR 126.8 ng/L (0-10)
[2023-03-25] MEDS: sodium chloride 0.9% 1,000 ML 50 ML IV (21:04)
[2023-03-25] MEDS: pantoprazole 40 mg SDV IVP (21:05)
[2023-03-25] MEDS: gabapentin 100 mg Capsule PEG-TUBE (21:16)
[2023-03-25] MEDS: venlafaxine 75 mg Tablet PEG-TUBE (21:16)
[2023-03-25] MEDS: sucralfate 1 gm/10 mL Oral Liq UDC PO (21:19)
[2023-03-25 23:46] LABS: Adenovirus Not Detected (NOT DETECT); Chlamydia Pneumoniae Not Detected (NOT DETECT); Coronavirus 229E,HKU1,NL63,OC4 Not Detected (NOT DETECT); Human Metapneumovirus Not Detected (NOT DETECT); Human Rhinovirus/Enterovirus Not Detected (NOT DETECT); Influenza A Not Detected (NOT DETECT); Influenza A H1 Not Detected (NOT DETECT); Influenza A H1-2009 Not Detected (NOT DETECT); Influenza A H3 Not Detected (NOT DETECT); Influenza B Not Detected (NOT DETECT); Mycoplasma Pneumoniae Not Detected (NOT DETECT); Parainfluenza Virus Type 1 Not Detected (NOT DETECT); Parainfluenza Virus Type 2 Not Detected (NOT DETECT); Parainfluenza Virus Type 3 Not Detected (NOT DETECT); Parainfluenza Virus Type 4 Not Detected (NOT DETECT); Respiratory Syncytial Virus A Not Detected (NOT DETECT); Respiratory Syncytial Virus B Not Detected (NOT DETECT); SARS-COV-2 Not Detected (NOT DETECT)
[2023-03-26] VITALS (21 sets, daily range): BP systolic 108–131; BP diastolic 58–80; PULSE 82–98; RESP 15–20; TEMP 36.7–37.9; O2SAT 92–96
[2023-03-26] MEDS: piperacillin-tazobactam 3.375 GM in sodium chloride 0.9% (plus) 50 ML IV ×3 (04:15→21:18)
[2023-03-26 05:03] LABS: Hematocrit 23.7 % (36-47); Lymphocytes # 1.2 10^3/uL (0.8-4.8); Lymphocytes % 42.3 %; Mean Corpuscular HGB Conc 32.1 g/dL (30-55); Mean Corpuscular Hemoglobin 34.7 pg (27-33); Mean Corpuscular Volume 108.2 fl (85-98); Mean Platelet Volume 9.6 fL (7.4-10.4); Monocytes # 1.3 10^3/uL (0.2-0.9); Monocytes % 43.3 %; Neutrophils % 14.1 %; Nucleated Red Blood Cells # 0.1 /100WBC; Nucleated Red Blood Cells % 2.1 %; Platelet Count 143 10^3/cmm (157-399); Red Blood Count 2.19 10^6/uL (3.85-5.65); Red Cell Distribution Width 23.9 % (12.1-15.1); White Blood Count 2.91 10^3/uL (3.29-11.43)
[2023-03-26 05:12] LABS: Neutrophils # 0.41 10^3/uL (1.8-7.7)
[2023-03-26 05:22] LABS: Alanine Aminotransferase 62 U/L (0-33); Albumin Level 3.2 g/dL (3.5-5.2); Alkaline Phosphatase 106 U/L (35-105); Anion Gap 12.2 (5-19); Aspartate Amino Transferase 78 U/L (0-32); Blood Urea Nitrogen 23 mg/dL (8-23); Calcium 8.2 mg/dL (8.5-10.5); Carbon Dioxide 31 mmol/L (22-29); Chloride 101 mmol/L (98-107); Globulin 2.9 g/dL (1.3-4.6); Glomerular Filtration Rate 101.6 mL/min (90-130); Glucose 92 mg/dL (65-115); Magnesium 2.4 mg/dL (1.7-2.3); Osmolality Calculated 293 mOsm/kg (285-295); Phosphorus 3.6 mg/dL (2.5-4.5); Potassium 4.2 mmol/L (3.5-5.1); Sodium 140 mmol/L (136-145); Total Bilirubin 0.7 mg/dL (0.15-1.2); Total Protein 6.1 g/dL (6.6-8.7)
[2023-03-26 05:23] LABS: Chol HDL Ratio 3.34 mg/dL (0.0-4.40); Cholesterol 107 mg/dL (0-200); HDL Cholesterol 32 mg/dL (60-100); LDL Cholesterol Calculated 64 mg/dL (50-129); Triglycerides 57 mg/dL (0-150)
[2023-03-26 05:28] LABS: Procalcitonin 0.21 ng/mL (0-0.5)
[2023-03-26 05:30] LABS: Estmated Average Glucose 100; Hemoglobin A1C 5.1 % (4.0-6.0)
[2023-03-26 05:47] LABS: Folate Level 16.4 ng/mL (4.8-37.3)
[2023-03-26] MEDS: carbidopa-levodopa 25-250mg Tablet 2 EACH OG-TUBE ×2 (06:03→13:33)
[2023-03-26] MEDS: sucralfate 1 gm/10 mL Oral Liq UDC PO (06:03)
[2023-03-26] MEDS: venlafaxine 75 mg Tablet PEG-TUBE ×2 (09:02→17:31)
[2023-03-26] MEDS: carbidopa-levodopa 25-250mg Tablet 1.5 EACH OG-TUBE (09:02)
[2023-03-26] MEDS: gabapentin 100 mg Capsule PEG-TUBE ×3 (09:02→21:19)
[2023-03-26] MEDS: doxycycline 100 mg Tablet PO ×2 (09:04→17:31)
--- NOTE | 2023-03-26 10:23 | PC.CHAP ---
Pastoral Care Encounter/Spiritual Assessment Type of Contact [] Declined information technology associate visit [] Patient/Family/Request visit [] Outpatient visit [] Follow-up visit [] Physician referral [] Code/Alert [x] Routine visit [] Staff referral [] Actively dying [] Patient sleeping [] Family support [] [] Out of room [] Palliative care [] [] Receiving care in room [] Pre-surgical visit [] Trauma [] Long length of stay [] ICU visit [] Other: Relational/Emotional Strength [] Patient feels connected with others/family/visitors/staff [] Distress [] Loneliness/isolation [] Abandonment Spirituality of Patient [] Person of Angella [] Attends Church of their Angella [] Believes in Prayer [] Reads Bible or Sabianist materials [] There are Spiritual issues to be addressed Fast Food Attendant Interventions [x] Prayer [x] Active listening [] Non-anxious presence [x] Spiritual/emotional support [] Crisis/trauma care [] Spiritual counseling [] Bereavement support [] Provided bereavement packet [] Provided Bible/devotional materials [] Provided toy/stuffed animal, coloring book to patient or family member [] Provided Communion [] Anointing/[place] [] Salvation [] Completed spiritual assessment [] Other: Impact on Illness or Injury [] Angry [] Fearful [] Anxious [] Often cries [] Exhaustion [] Unable to work [] Unable to attend scientology [] Unable to walk/stand [] Unable to read [] Unable to drive [] Unable to eat/drink [] Unable to sleep [] Unable to be with family [] Patient intubated [] Other: Summary Time spent with patient 10 min
[2023-03-26] MEDS: pantoprazole 40 mg SDV IVP ×2 (10:29→21:18)
[2023-03-26 10:45] LABS: LAB Peripheral Smear Sent for Review
[2023-03-26] MEDS: iohexol 350 mg/mL 500 mL Btl (per mL) IV (10:53)
--- NOTE | 2023-03-26 11:08 | PC.PHAR ---
Pharmacokinetic dosing service Date: 03/26/23 Time: 1107 Objective: Patient: Liliana Davis Floor: 254-2 Age: 62 yo Serum creatinine: 0.6 mg/dL Height: 66.0 Inches Weight (kg): 77.593 Diagnosis: Relevant medical/social history: Cultures and sensitivities: Other labs: Assessment: IBW (kg): 59.30 Dosing wt(kg): 77.593 Estimated Creatinine clearance (ml/min): 92.2 CRCL method: Cockcroft and Gault using ibw(default). Drug selected: Vancomycin Loading dose (mg): 0 Vd (liters): 69.8 (factor used: 0.9 L/kg) Tor (hr-1): 0.081 Half life (hrs): 8.56 Recommended dose: 1250 mg Interval: 12 hrs Infusion time (hrs): 1.5 Predicted peak (mcg/mL): 27.1 Predicted trough (mcg/mL): 11.58 Total body weight is being used for vancomycin dosing. Renal function is stable [ ] /unstable [ ] Recommendations: Give Vancomycin 1250 mg q 12 hrs with an expected Cpeak of 27.1 mcg/ml and an expected Ctrough of 11.58 mcg/ml Renal dosing of other antibiotics (review renal dosing of other medications and list guidelines here): Thank you for the consult, will continue to follow. Signature: [facility]
[2023-03-26 11:36] LABS: Homocysteine 10.96; Lactate Dehydrogenase 405 U/L (135-214)
[2023-03-26] MEDS: vancomycin 1,250 MG/250 ML PIGGYBACK 250 MG IV (11:41)
--- NOTE | 2023-03-26 12:19 | P.PN_ITS ---
Subjective 2 Subjective: No acute events overnight. Patient has remained hemodynamically stable and afebrile. On nasal cannula. Family at bedside. Patient is more awake and alert today. Able to have complete conversation. States she would like to drink something by her mouth. We discussed that for now there is a concern for aspiration pneumonitis and it would be preferred for her not to take things by mouth. She is agreeable. Continue with oral swabs. Tmax since admission 100.3 Fahrenheit. Vitals/I&O/Wt Last Vital Signs Temp 98.1 F 03/26/23 11:42 Pulse 94 03/26/23 11:42 Resp 16 03/26/23 11:42 BP 121/73 03/26/23 11:42 Pulse Ox 95 03/26/23 11:42 O2 Del Method Nasal Cannula 03/26/23 11:42 O2 Flow Rate 2 03/26/23 09:10 03/25/23 03/26/23 03/26/23 22:59 06:59 14:59 Intake Total 50 / 50 400 / 450 50 / 50 Output Total 650 / 650 Balance 50 / 50 -250 / -200 50 / 50 Weight last 48 hrs Weight 76.742 kg Weight 77.593 kg Weight 75.568 kg Weight 70.76 kg Physical Exam 2 Narrative: General: No acute distress, AO x3, NC oxygen supplementation, Chronically sick appearing, neck tilted towards the left HEENT: PERRLA, pupils bilaterally equal and reactive Chest: Normal vesicular breath sounds all over lung eric with coarse crackles in right lower zone CVS: S1-S2 regular, no murmurs, no tachycardia, no gallops, no rubs Abdomen: Soft, nontender, no organomegaly, bowel sounds present, morbidly obese Neuro: No focal deficits, no facial deformity, AO x3, power were not assessed Data 03/26/23 04:48 03/26/23 04:48 Micro: Microbiology 03/26/23 04:11 Occult Blood (FIT) - Final Stool Routine Collection 03/25/23 13:28 Blood Culture - Preliminary Blood SPECIMEN COLLECTED 03/25/23 13:21 Blood Culture - Preliminary Blood SPECIMEN COLLECTED A&P Assessment and plan (1) Sepsis: Ruled in on admission because of fever more than 101 Fahrenheit, leukopenia, source of infection pneumonia with endorgan damage with elevated troponins. Lactate negative on admission. Maintain mean artery pressure 65 Follow-up blood culture, check sputum culture. (2) Aspiration pneumonia: High likelihood of aspiration. Patient has baseline Parkinson's, PEG tube but still continues to take oral diet when possible. Recent episodes of choking even on spit. NPO. IV Zosyn. Patient has history of MRSA in the past. Add vancomycin. Follow-up blood cultures, respiratory viral panel negative. Check sputum culture if possible. Oxygen supplementation keeping saturation over 90%. Continue with PEG feeds at baseline. (3) Anemia: Baseline hemoglobin seems to be around 12. Patient does seem to have macrocytic anemia. Post 1 unit of blood transfusion. Associated with leukopenia/neutropenia with slight decrease in platelet count. Unknown cause for now. Stool for occult blood negative. Respiratory viral panel negative. Check LDH, haptoglobin, peripheral smear on pretransfusion sample. Appreciate iron panel, vitamin B12, folate levels. Check homocysteine level. Continue with IV Protonix twice daily. Hold off on Carafate. Patient does have transaminitis along with pancytopenia now. Unlikely though will check tick panel and start patient on doxycycline 100 mg twice daily. Monitor CBC daily for now. (4) Dysphagia: Once patient is more awake will plan to do modified barium swallow before starting oral diet. Till that time we will continue PEG tube feeds at home schedule. (5) Cervical dystonia: (6) Parkinson's disease: Continue with home dose of carbidopa/levodopa. Aspiration, seizure precautions. (7) Elevated troponin: Non-ST elevation OR versus demand ischemia. Patient does have acute anemia possibility along with aspiration pneumonitis. Hold off on heparin drip for now given acute anemia. Troponin trend negative. Appreciate A1c, lipid panel. Check echocardiogram. Allergic to aspirin. (8) S/P percutaneous endoscopic gastrostomy (PEG) tube placement: (9) Neutropenia: Start on neutropenic precautions. Plan CODE STATUS: Discussed in detail with patient at bedside. She does not want any resuscitation. DNR/DNI. N.p.o., PEG tube feeds at baseline. Protonix for PUD ppx SCDs for DVT prophylaxis, hold off on medical prophylaxis. Attestations 2 Medical Necessity Statement*: Requires further hospitalization for management of hypoxia in setting of aspiration pneumonitis, pancytopenia, neutropenia requiring blood transfusion. Diagnoses Sepsis A41.9 Aspiration pneumonia J69.0 Anemia D64.9 Dysphagia R13.10 Cervical dystonia G24.3 Parkinson's disease G20.A1 Elevated troponin R79.89 S/P percutaneous endoscopic gastrostomy (PEG) tube placement Z93.1 Neutropenia D70.9
--- NOTE | 2023-03-26 12:29 | USCV_ITS ---
Liliana Davis Age: 62 Gender: F : 1960 Exam Date: 03/26/2023 13:57 Ordering Phys: Ismael Winters MD Technologist: Fredi Nguyen [place] [facility] [place]: chest pain BP: 132 / 72 HR: 87 Rhythm: Sinus Technical Quality: Adequate MEASUREMENTS (Male / Female) Normal Values 2D ECHO LV Diastolic Diameter PLAX 3.3 cm 4.2 - 5.9 / 3.9 - 5.3 cm LV Systolic Diameter PLAX 2.6 cm IVS Diastolic Thickness 1.1 cm 0.6 - 1.0 / 0.6 - 0.9 cm IVS Systolic Thickness 1.5 cm LVPW Diastolic Thickness 1.3 cm 0.6 - 1.0 / 0.6 - 0.9 cm LVPW Systolic Thickness 1.1 cm LVOT Diameter 2.1 cm LV Ejection Fraction 2D Teich 33.4 % LV Ejection Fraction MOD 2C 68.8 % LV Ejection Fraction 2C AL 70.2 % LA Diameter 4.1 cm M-MODE Aortic Annulus Diameter 3.1 cm LA Ao Ratio MM 1.5 MV E Point Septal Separation 1.6 cm DOPPLER AV Peak Velocity 179.0 cm/s LVOT Peak Velocity 138.0 cm/s AV Area Cont Eq vti 4.0 cm squared AV Area Cont Eq pk 2.6 cm squared MV Area PHT 5.0 cm squared Mitral E to A Ratio 0.9 MV E' Velocity 55.5 cm/s Mitral E to MV E' Ratio 9.8 Mitral E to LV E' Lateral Ratio 10.0 Mitral E to LV E' Septal Ratio 9.7 TR Peak Velocity 220.5 cm/s TR Peak Gradient 19.4 mmHg TV Peak E Velocity 106.0 cm/s Right Atrial Pressure 3.0 mmHg Pulmonary Artery Systolic Pressu 22.4 mmHg RV Acceleration Time 0.1 s FINDINGS Left Ventricle Normal left ventricular size, systolic function and wall thickness, with no regional wall motion abnormalities. Left ventricular ejection fraction is estimated at 65 %. Right Ventricle Normal right ventricular size and systolic function. Right Atrium Normal right atrial size. Left Atrium Normal left atrial size. Mitral Valve Structurally normal mitral valve. Trace mitral valve regurgitation. Aortic Valve Structurally normal trileaflet aortic valve. No aortic valve stenosis. No aortic valve regurgitation. Tricuspid Valve Structurally normal tricuspid valve. Trace tricuspid valve regurgitation. Pulmonic Valve Pulmonic valve not well visualized. Trace pulmonary valve regurgitation. Pericardium No pericardial effusion. Aorta Normal size aortic root and proximal ascending aorta. IVC Normal IVC dimension with >50% respiratory change of the inferior vena cava. CONCLUSIONS Normal left ventricular systolic function. There is no LVH. Estimated LVEF is normal at 65%. Normal chamber sizes. No significant valvular abnormality noted. Normal right heart and pulmonary pressures. Landon Tijerina MD (Electronically Signed) Final Date: 26 March 2023 16:45 S
--- NOTE | 2023-03-26 13:15 | PC.NUTR ---
-Initiate enteral nutrition via PEG following RD recs below -Continuous: Osmolite 1.2 @ 60 ml/hr x 24 hours -Bolus: Osmolite 1.2 @ 480 ml q8 -If bolus regimen manifests discomfort or intolerance, modify to Osmolite 1.2 @360 ml q6
[2023-03-26] MEDS: ipratropium-albuterol 3 mL Neb INHALATION (16:56)
[2023-03-26] MEDS: sodium chloride 0.9% 1,000 ML 50 ML IV (17:30)
[2023-03-26] MEDS: carbidopa-levodopa ER 50-200mg Tablet 1 EACH OG-TUBE (17:31)
[2023-03-26 17:52] LABS: Hematocrit 27.8 % (36-47)
--- NOTE | 2023-03-26 19:49 | CT_ITS ---
WS: [id number] CTA OF THE CHEST WITH PULMONARY EMBOLISM PROTOCOL TECHNIQUE: High-resolution contrast enhanced CTA of the chest with coronal and sagittal reformatted i [place] with pulmonary embolism protocol. MIP images are also reviewed. Imaging obtained with arms down due to patient inability to bring arms over head. CLINICAL INFORMATION: elevated dimer COMPARISON: None. DLP: 416.[address] scans at [facility] use at least one of these dose optimization techniques: automated e xposure control; mA and/or kV adjustment per patient size (includes targeted exams where dose is matc hed to clinical indication); or iterative reconstruction. FINDINGS: Proximal main pulmonary arteries are normal. Normal segmental and subsegmental pulmonary ar teries. Distal pulmonary arteries not well evaluated due to respiratory and beam hardening artifact. Normal caliber thoracic aorta. Mild aortic calcification. Small pericardial effusion. Thickening RIGHT adrenal gland. LEFT adrenal gland is normal. Small esophageal hernia. Thoracic scoli osis and kyphosis. Chronic compression fracture lower thoracic spine with vertebroplasty changes. Chronic emphysematous changes. Shallow inspiration. Subsegmental atelectasis in the lung bases and li ngula. Hazy groundglass infiltrates throughout both lungs. IMPRESSION: 1. No evidence of pulmonary embolus. 2. Shallow inspiration with chronic emphysematous changes. 3. Subsegmental atelectasis in the lung bases and lingula. 4. Slight hazy groundglass infiltrates throughout both lungs can be seen with pulmonary edema. Recom mend correlation for viral pneumonia.
[2023-03-27] VITALS (8 sets, daily range): BP systolic 109–114; BP diastolic 68–77; PULSE 72–87; RESP 15–19; TEMP 36.4–37.1; O2SAT 92–94
[2023-03-27] MEDS: vancomycin 1,250 MG/250 ML PIGGYBACK 250 MG IV ×2 (00:36→11:04)
[2023-03-27 05:09] LABS: Eosinophils % 0.4 %; Hematocrit 27.2 % (36-47); Lymphocytes # 1.7 10^3/uL (0.8-4.8); Lymphocytes % 59.9 %; Mean Corpuscular HGB Conc 31.6 g/dL (30-55); Mean Corpuscular Hemoglobin 33.1 pg (27-33); Mean Corpuscular Volume 104.6 fl (85-98); Mean Platelet Volume 9.4 fL (7.4-10.4); Monocytes # 0.7 10^3/uL (0.2-0.9); Monocytes % 25.5 %; Neutrophils % 13.1 %; Nucleated Red Blood Cells % 1.4 %; Platelet Count 129 10^3/cmm (157-399); Red Cell Distribution Width 24.7 % (12.1-15.1); White Blood Count 2.82 10^3/uL (3.29-11.43)
[2023-03-27 05:30] LABS: Neutrophils # 0.37 10^3/uL (1.8-7.7)
[2023-03-27 05:35] LABS: Alanine Aminotransferase 82 U/L (0-33); Albumin Level 3.1 g/dL (3.5-5.2); Alkaline Phosphatase 97 U/L (35-105); Anion Gap 12.7 (5-19); Aspartate Amino Transferase 146 U/L (0-32); Blood Urea Nitrogen 20 mg/dL (8-23); Calcium 8.1 mg/dL (8.5-10.5); Carbon Dioxide 28 mmol/L (22-29); Chloride 106 mmol/L (98-107); Globulin 3.1 g/dL (1.3-4.6); Glomerular Filtration Rate 125.4 mL/min (90-130); Glucose 87 mg/dL (65-115); Osmolality Calculated 298 mOsm/kg (285-295); Potassium 3.7 mmol/L (3.5-5.1); Sodium 143 mmol/L (136-145); Total Bilirubin 0.7 mg/dL (0.15-1.2); Total Protein 6.2 g/dL (6.6-8.7)
[2023-03-27 05:36] LABS: Magnesium 2.3 mg/dL (1.7-2.3); Phosphorus 3.1 mg/dL (2.5-4.5)
[2023-03-27] MEDS: carbidopa-levodopa 25-250mg Tablet 2 EACH OG-TUBE ×2 (06:06→13:44)
[2023-03-27] MEDS: piperacillin-tazobactam 3.375 GM in sodium chloride 0.9% (plus) 50 ML IV ×3 (06:06→21:05)
[2023-03-27] MEDS: ipratropium-albuterol 3 mL Neb INHALATION (09:21)
[2023-03-27] MEDS: gabapentin 100 mg Capsule PEG-TUBE ×3 (11:05→21:09)
[2023-03-27] MEDS: doxycycline 100 mg Tablet PO ×2 (11:05→17:00)
[2023-03-27] MEDS: carbidopa-levodopa 25-250mg Tablet 1.5 EACH OG-TUBE (11:05)
[2023-03-27] MEDS: pantoprazole 40 mg SDV IVP ×2 (11:05→22:12)
[2023-03-27] MEDS: benzonatate 100 mg Capsule PO (11:06)
[2023-03-27] MEDS: venlafaxine 75 mg Tablet PEG-TUBE ×2 (11:06→17:00)
[2023-03-27 11:14] LABS: Monoscreen Negative (Negative)
--- NOTE | 2023-03-27 12:20 | FL_ITS ---
WS: [id number] Modified barium swallow, 03/27/2023 Clinical Data: Oropharyngeal dysphagia Comparison: None. Fluoroscopy time: 2min [id number] # of spot films: Findings: The patient had severe flexion deformity such that the hypopharynx was parallel to the ground. The pa tient had difficulty with oral preparation and propelling the ingested material into the hypopharynx. Multiple swallows were required. There was penetration but no aspiration. There was slow progression of ingested material into the esophagus. The patient did swallow a barium tablet which eventually fl owed normally from the thoracic inlet into the stomach. Impression: 1. Difficult transportation of oral products through hypopharynx because of severe flexion deformity. 2. Aspiration but no penetration.
[2023-03-27] MEDS: sodium chloride 0.9% 1,000 ML 50 ML IV (13:46)
[2023-03-27 15:35] LABS: Lyme AB Screen <0.90 index
[2023-03-27] MEDS: carbidopa-levodopa ER 50-200mg Tablet 1 EACH OG-TUBE (17:00)
--- NOTE | 2023-03-27 17:20 | P.PN_ITS ---
Subjective 2 Subjective: No acute events overnight. Patient remains on 2 L of O2 supplementation to maintain saturation. Has remained hemodynamically stable and afebrile. Tmax in last 24 hours afebrile. Last fever on at 1AM. On examination patient laying comfortably in bed, complaining of cough. Later spoke over the phone with patient's DPOA and daughter. All the questions were answered. Vitals/I&O/Wt Last Vital Signs Temp 97.6 F 03/27/23 16:00 Pulse 87 03/27/23 16:00 Resp 16 03/27/23 16:00 BP 111/77 03/27/23 16:00 Pulse Ox 93 03/27/23 16:00 O2 Del Method Nasal Cannula 03/27/23 16:00 O2 Flow Rate 2 03/27/23 09:22 03/27/23 03/27/23 03/27/23 06:59 14:59 22:59 Intake Total 300 / 2480 1300 / 1300 Output Total 200 / 1350 Balance 100 / 1130 1300 / 1300 Weight last 48 hrs Weight 77.649 kg Weight 76.742 kg Weight 77.593 kg Weight 75.568 kg Physical Exam 2 Narrative: General: No acute distress, AO x3, NC oxygen supplementation, Chronically sick appearing, cervical dystonia to the left. HEENT: PERRLA, pupils bilaterally equal and reactive Chest: Normal vesicular breath sounds all over lung eric with coarse crackles in right lower zone CVS: S1-S2 regular, no murmurs, no tachycardia, no gallops, no rubs Abdomen: Soft, nontender, no organomegaly, bowel sounds present, morbidly obese Neuro: No focal deficits, no facial deformity, AO x3, power not assessed Data 03/27/23 04:45 03/27/23 04:45 Micro: Microbiology 03/25/23 13:28 Blood Culture - Preliminary Blood NEGATIVE TO DATE 03/25/23 13:21 Blood Culture - Preliminary Blood NEGATIVE TO DATE A&P Assessment and plan (1) Sepsis: Ruled in on admission because of fever more than 101 Fahrenheit, leukopenia, source of infection pneumonia with endorgan damage with elevated troponins. Lactate negative on admission. Maintain mean artery pressure 65 Blood cultures negative so far, sputum culture not collected. (2) Aspiration pneumonia: High likelihood of aspiration. Patient has baseline Parkinson's, PEG tube but still continues to take oral diet when possible. Recent episodes of choking even on spit. NPO. Continue with IV Zosyn and vancomycin. Will plan for overall 5-day course of antibiotics. Patient continues to improve but still has significant neutropenia. Respiratory viral panel negative. Oxygen supplementation keeping saturation over 90%. Continue with PEG feeds at baseline. (3) Anemia: Baseline hemoglobin seems to be around 12. Patient does seem to have macrocytic anemia. Post 1 unit of blood transfusion. Hemoglobin stable Associated with leukopenia/neutropenia and developing thrombocytopenia. Respiratory panel negative. Stool for occult blood negative. LDH and haptoglobin appreciated and not concerning for hemolysis. Will check EBV, CMV serologies. Check Monospot. Continue with IV Protonix twice daily. Tick panel awaited. Continue with doxycycline 100 mg twice daily. (4) Dysphagia: Plan for modified barium swallow today. Will decide about restarting oral feeds accordingly. For now continue with PEG tube feeds. (5) Cervical dystonia: (6) Parkinson's disease: Continue with home dose of carbidopa/levodopa. Aspiration, seizure precautions. (7) Elevated troponin: Most likely demand ischemia. Echocardiogram shows no regional wall motion abnormality. Patient does not have any chest pain. Appreciate A1c, lipid panel. Once patient is more stable can plan for a Lexiscan stress test as an outpatient depending on goals. (8) S/P percutaneous endoscopic gastrostomy (PEG) tube placement: (9) Neutropenia: Start on neutropenic precautions. Plan CODE STATUS: Discussed in detail with patient at bedside. She does not want any resuscitation. DNR/DNI. N.p.o., PEG tube feeds at baseline. Protonix for PUD ppx SCDs for DVT prophylaxis, hold off on medical prophylaxis. Discharge plan: Can plan to discharge back to SNF if patient remains at her baseline mentation, continues to remain on minimal oxygen supplementation and remains afebrile on oral antibiotics with stable blood work within next 24 to 48 hours. Attestations 2 Medical Necessity Statement*: Requires further hospitalization for management of aspiration pneumonitis leading to hypoxia, pancytopenia with significant neutropenia while further workup is done Diagnoses Sepsis A41.9 Aspiration pneumonia J69.0 Anemia D64.9 Dysphagia R13.10 Cervical dystonia G24.3 Parkinson's disease G20.A1 Elevated troponin R79.89 S/P percutaneous endoscopic gastrostomy (PEG) tube placement Z93.1 Neutropenia D70.9
[2023-03-27 23:40] LABS: Vancomycin Trough 15.6 ug/mL (10-15)
[2023-03-28] VITALS (8 sets, daily range): BP systolic 97–134; BP diastolic 61–86; PULSE 72–104; RESP 16–20; TEMP 36.6–37.4; O2SAT 91–97
[2023-03-28] MEDS: vancomycin 1,250 MG/250 ML PIGGYBACK 250 MG IV ×2 (00:05→12:00)
[2023-03-28] MEDS: piperacillin-tazobactam 3.375 GM in sodium chloride 0.9% (plus) 50 ML IV ×3 (03:48→22:26)
[2023-03-28] MEDS: carbidopa-levodopa 25-250mg Tablet 2 EACH OG-TUBE ×2 (04:36→12:14)
[2023-03-28 05:08] LABS: Eosinophils % 1.1 %; Lymphocytes # 1.1 10^3/uL (0.8-4.8); Lymphocytes % 42.4 %; Mean Corpuscular HGB Conc 31.4 g/dL (30-55); Mean Corpuscular Hemoglobin 33.6 pg (27-33); Mean Corpuscular Volume 106.9 fl (85-98); Mean Platelet Volume 9.5 fL (7.4-10.4); Monocytes # 1.1 10^3/uL (0.2-0.9); Monocytes % 42.4 %; Neutrophils % 13.3 %; Nucleated Red Blood Cells # 0.1 /100WBC; Nucleated Red Blood Cells % 1.9 %; Platelet Count 128 10^3/cmm (157-399); Red Blood Count 2.62 10^6/uL (3.85-5.65); Red Cell Distribution Width 23.5 % (12.1-15.1); White Blood Count 2.62 10^3/uL (3.29-11.43)
[2023-03-28 05:29] LABS: Alanine Aminotransferase 135 U/L (0-33); Albumin Level 3.2 g/dL (3.5-5.2); Alkaline Phosphatase 107 U/L (35-105); Anion Gap 11.7 (5-19); Aspartate Amino Transferase 187 U/L (0-32); Blood Urea Nitrogen 17 mg/dL (8-23); Calcium 8.3 mg/dL (8.5-10.5); Carbon Dioxide 28 mmol/L (22-29); Chloride 106 mmol/L (98-107); Globulin 2.9 g/dL (1.3-4.6); Glomerular Filtration Rate 162.3 mL/min (90-130); Glucose 131 mg/dL (65-115); Osmolality Calculated 297 mOsm/kg (285-295); Potassium 3.7 mmol/L (3.5-5.1); Sodium 142 mmol/L (136-145); Total Bilirubin 0.6 mg/dL (0.15-1.2); Total Protein 6.1 g/dL (6.6-8.7)
[2023-03-28 05:33] LABS: Magnesium 2.2 mg/dL (1.7-2.3); Phosphorus 3.1 mg/dL (2.5-4.5)
[2023-03-28 05:55] LABS: Slide Review Slide Review Perform
[2023-03-28 05:57] LABS: Neutrophils # 0.35 10^3/uL (1.8-7.7)
[2023-03-28] MEDS: pantoprazole 40 mg SDV IVP ×2 (08:09→22:24)
[2023-03-28] MEDS: venlafaxine 75 mg Tablet PEG-TUBE ×2 (08:10→17:17)
[2023-03-28] MEDS: gabapentin 100 mg Capsule PEG-TUBE ×3 (08:10→22:24)
[2023-03-28] MEDS: doxycycline 100 mg Tablet PO ×2 (08:10→17:17)
[2023-03-28] MEDS: carbidopa-levodopa 25-250mg Tablet 1.5 EACH OG-TUBE (08:29)
[2023-03-28 12:45] LABS: EBV IGM TEST <36.00 U/mL
--- NOTE | 2023-03-28 12:56 | PC.SOCIAL ---
IMM Update pg 2 of IMM updated and reviewed w/ patient. Copy provided and copy dated, initialed and placed in chart.
[2023-03-28 14:14] LABS: Cytomegalovirus Antibody (IGG) <0.60 U/mL; Cytomegalovirus Antibody (IGM) <30.00 AU/mL
--- NOTE | 2023-03-28 14:44 | P.PN_ITS ---
Subjective 2 Subjective: No acute events overnight. Patient states she is feeling a lot better. On examination patient is on room air without having any difficulty in breathing. Does have occasional bouts of cough. Daughter at bedside. Denies any nausea, vomiting, headache. Vitals/I&O/Wt Last Vital Signs Temp 98.7 F 03/28/23 11:44 Pulse 84 03/28/23 11:44 Resp 18 03/28/23 11:44 BP 122/77 03/28/23 11:44 Pulse Ox 92 03/28/23 11:44 O2 Del Method Nasal Cannula 03/28/23 11:44 O2 Flow Rate 2 03/27/23 20:00 03/27/23 03/28/23 03/28/23 22:59 06:59 14:59 Intake Total 530 / 2410 300 / 2710 1230 / 1230 Output Total 500 / 500 550 / 1050 Balance 30 0 -250 / 1660 1230 / 1230 Weight last 48 hrs Weight 80.91 kg Weight 80.286 kg Weight 77.649 kg Physical Exam 2 Narrative: General: No acute distress, AO x3, NC oxygen supplementation, Chronically sick appearing, cervical dystonia to the left. HEENT: PERRLA, pupils bilaterally equal and reactive Chest: Normal vesicular breath sounds all over lung eric with coarse crackles in right lower zone CVS: S1-S2 regular, no murmurs, no tachycardia, no gallops, no rubs Abdomen: Soft, nontender, no organomegaly, bowel sounds present, morbidly obese Neuro: No focal deficits, no facial deformity, AO x3, power not assessed Data 03/28/23 04:37 03/28/23 04:37 A&P Assessment and plan (1) Sepsis: Ruled in on admission because of fever more than 101 Fahrenheit, leukopenia, source of infection pneumonia with endorgan damage with elevated troponins. Lactate negative on admission. Maintain mean artery pressure 65 Blood cultures negative so far, sputum culture not collected. (2) Aspiration pneumonia: High likelihood of aspiration. Patient has baseline Parkinson's, PEG tube but still continues to take oral diet when possible. Recent episodes of choking even on spit. NPO. Continue with IV Zosyn and vancomycin. Will plan for overall 5-day course of antibiotics. Patient continues to improve but still has significant neutropenia. Respiratory viral panel negative. Oxygen supplementation keeping saturation over 90%. Continue with PEG feeds at baseline. (3) Anemia: Baseline hemoglobin seems to be around 12. Patient does seem to have macrocytic anemia. Post 1 unit of blood transfusion. Hemoglobin stable Associated with leukopenia/neutropenia and developing thrombocytopenia. Respiratory panel negative. Stool for occult blood negative. LDH and haptoglobin appreciated and not concerning for hemolysis. Will check EBV, CMV serologies. Check Monospot. Continue with IV Protonix twice daily. Tick panel awaited. Continue with doxycycline 100 mg twice daily. (4) Dysphagia: Plan for modified barium swallow today. Will decide about restarting oral feeds accordingly. For now continue with PEG tube feeds. (5) Cervical dystonia: (6) Parkinson's disease: Continue with home dose of carbidopa/levodopa. Aspiration, seizure precautions. (7) Elevated troponin: Most likely demand ischemia. Echocardiogram shows no regional wall motion abnormality. Patient does not have any chest pain. Appreciate A1c, lipid panel. Once patient is more stable can plan for a Lexiscan stress test as an outpatient depending on goals. (8) S/P percutaneous endoscopic gastrostomy (PEG) tube placement: (9) Neutropenia: Start on neutropenic precautions. Plan CODE STATUS: Discussed in detail with patient at bedside. She does not want any resuscitation. DNR/DNI. N.p.o., PEG tube feeds at baseline. Protonix for PUD ppx SCDs for DVT prophylaxis, hold off on medical prophylaxis. Plan for the day: Modified barium swallow result shows patient is not aspirating but patient remains at high risk of aspiration given anatomy from cervical dystonia. Discussed in detail with patient and patient's daughter at bedside. We discussed that at this point patient would be at high risk of aspiration from anything orally. Discussed about quality of life versus quantity of life. We discussed that if patient takes orally she will always be at a risk of choking or aspiration pneumonia and the only way she should be taking orally is if quality of life is more important to her knowing that she will be at a higher risk of pneumonia. Patient for now would like to think further before making further decisions. Continue n.p.o. for now. Continue broad-spectrum antibiotics for now for aspiration pneumonia. Oxygen supplementation keeping saturation over 90%. Tessallorie [place]. Continue with PEG tube feeds. Hemoglobin and pancytopenia remained stable. EBV IgG and EBV antigen positive which is consistent with past EBV infection but could be recent as well. Cannot rule out pancytopenia in setting of EBV infection. For now we will continue to monitor. Continue with neutropenic precautions. Also discussed with patient regarding elevated troponins on admission but negative echocardiogram for regional wall motion abnormality. Discussed that is a possibility of ACS going forward and patient would benefit from outpatient cardiac stress test but they should only think about that depending on goals of care. Patient and family will discuss further before making decision. Discharge plan: Plan to discharge back within next 24 hours with patient's oxygen supplementation and blood work remained stable on oral antibiotics. Case management confirms patient [facility]. Attestations 2 Medical Necessity Statement*: Requires further hospitalization for management of aspiration pneumonitis, pancytopenia/neutropenia while further workup is done Diagnoses Sepsis A41.9 Aspiration pneumonia J69.0 Anemia D64.9 Dysphagia R13.10 Cervical dystonia G24.3 Parkinson's disease G20.A1 Elevated troponin R79.89 S/P percutaneous endoscopic gastrostomy (PEG) tube placement Z93.1 Neutropenia D70.9
[2023-03-28] MEDS: sodium chloride 0.9% 1,000 ML 50 ML IV (17:17)
[2023-03-28] MEDS: carbidopa-levodopa ER 50-200mg Tablet 1 EACH OG-TUBE (17:17)
[2023-03-29] VITALS (11 sets, daily range): BP systolic 104–122; BP diastolic 62–75; PULSE 78–85; RESP 16–18; TEMP 36.7–37.3; O2SAT 91–95; BMI 29.0
[2023-03-29] MEDS: vancomycin 1,250 MG/250 ML PIGGYBACK 250 MG IV ×2 (00:54→11:34)
[2023-03-29] MEDS: carbidopa-levodopa 25-250mg Tablet 2 EACH OG-TUBE ×2 (04:50→12:07)
[2023-03-29 04:56] LABS: Basophils % 0.4 %; Eosinophils % 1.3 %; Hematocrit 27.7 % (36-47); Lymphocytes % 44.1 %; Mean Corpuscular Hemoglobin 33.1 pg (27-33); Mean Corpuscular Volume 106.5 fl (85-98); Mean Platelet Volume 10.1 fL (7.4-10.4); Monocytes % 42.4 %; Neutrophils % 11.4 %; Nucleated Red Blood Cells % 1.3 %; Platelet Count 126 10^3/cmm (157-399); Red Cell Distribution Width 22.5 % (12.1-15.1); White Blood Count 2.36 10^3/uL (3.29-11.43)
[2023-03-29 05:11] LABS: Alanine Aminotransferase 119 U/L (0-33); Albumin Level 3.1 g/dL (3.5-5.2); Alkaline Phosphatase 107 U/L (35-105); Aspartate Amino Transferase 83 U/L (0-32); Blood Urea Nitrogen 16 mg/dL (8-23); Calcium 8.2 mg/dL (8.5-10.5); Carbon Dioxide 28 mmol/L (22-29); Chloride 109 mmol/L (98-107); Globulin 2.5 g/dL (1.3-4.6); Glomerular Filtration Rate 162.3 mL/min (90-130); Glucose 131 mg/dL (65-115); Osmolality Calculated 301 mOsm/kg (285-295); Sodium 144 mmol/L (136-145); Total Bilirubin 0.6 mg/dL (0.15-1.2); Total Protein 5.6 g/dL (6.6-8.7)
[2023-03-29 05:22] LABS: Magnesium 1.9 mg/dL (1.7-2.3); Phosphorus 2.7 mg/dL (2.5-4.5)
[2023-03-29 05:58] LABS: Slide Review Slide Review Perform
[2023-03-29 05:59] LABS: Neutrophils # 0.27 10^3/uL (1.8-7.7)
[2023-03-29] MEDS: piperacillin-tazobactam 3.375 GM in sodium chloride 0.9% (plus) 50 ML IV ×2 (06:13→14:49)
[2023-03-29] MEDS: doxycycline 100 mg Tablet PO ×2 (08:43→17:26)
[2023-03-29] MEDS: gabapentin 100 mg Capsule PEG-TUBE ×3 (08:44→20:48)
[2023-03-29] MEDS: carbidopa-levodopa 25-250mg Tablet 1.5 EACH OG-TUBE (08:44)
[2023-03-29] MEDS: venlafaxine 75 mg Tablet PEG-TUBE ×2 (08:45→17:26)
[2023-03-29] MEDS: pantoprazole 40 mg SDV IVP ×2 (08:52→20:23)
[2023-03-29] MEDS: sodium chloride 0.9% 1,000 ML 50 ML IV (12:21)
[2023-03-29] MEDS: ipratropium-albuterol 3 mL Neb INHALATION ×2 (15:47→21:57)
--- NOTE | 2023-03-29 15:47 | P.PN_ITS ---
Subjective 2 Subjective: No acute events overnight. Patient has remained hemodynamically stable and afebrile. Continues to remain on 2 L of oxygen supplementation. Denies any nausea, vomiting. Tolerating PEG tube feeds. Still complaining of cough but getting better. Vitals/I&O/Wt Last Vital Signs Temp 98.0 F 03/29/23 15:37 Pulse 83 03/29/23 15:37 Resp 16 03/29/23 15:37 BP 104/66 03/29/23 15:37 Pulse Ox 95 03/29/23 15:37 O2 Del Method Nasal Cannula 03/29/23 15:37 O2 Flow Rate 2 03/28/23 20:00 03/29/23 03/29/23 03/29/23 06:59 14:59 22:59 Intake Total 880 / 3490 2413.333 / 2413.333 Output Total 450 / 1100 Balance 430 / 2390 2413.333 / 2413.333 Weight last 48 hrs Weight 81.601 kg Weight 80.91 kg Weight 80.286 kg Physical Exam 2 Narrative: General: No acute distress, AO x3, NC oxygen supplementation, Chronically sick appearing, cervical dystonia to the left. HEENT: PERRLA, pupils bilaterally equal and reactive Chest: Normal vesicular breath sounds all over lung eric with coarse crackles in right lower zone CVS: S1-S2 regular, no murmurs, no tachycardia, no gallops, no rubs Abdomen: Soft, nontender, no organomegaly, bowel sounds present, morbidly obese Neuro: No focal deficits, no facial deformity, AO x3, power not assessed Data 03/29/23 04:21 03/29/23 04:21 A&P Assessment and plan (1) Sepsis: Ruled in on admission because of fever more than 101 Fahrenheit, leukopenia, source of infection pneumonia with endorgan damage with elevated troponins. Lactate negative on admission. Maintain mean artery pressure 65 Blood cultures negative so far, sputum culture not collected. (2) Aspiration pneumonia: High likelihood of aspiration. Patient has baseline Parkinson's, PEG tube but still continues to take oral diet when possible. Recent episodes of choking even on spit. NPO. Continue with IV Zosyn and vancomycin. Will plan for overall 5-day course of antibiotics. Patient continues to improve but still has significant neutropenia. Respiratory viral panel negative. Oxygen supplementation keeping saturation over 90%. Continue with PEG feeds at baseline. (3) Anemia: Baseline hemoglobin seems to be around 12. Patient does seem to have macrocytic anemia. Post 1 unit of blood transfusion. Hemoglobin stable Associated with leukopenia/neutropenia and developing thrombocytopenia. Respiratory panel negative. Stool for occult blood negative. LDH and haptoglobin appreciated and not concerning for hemolysis. Will check EBV, CMV serologies. Check Monospot. Continue with IV Protonix twice daily. Tick panel awaited. Continue with doxycycline 100 mg twice daily. (4) Dysphagia: Appreciate modified barium swallow results. Remains at risk of aspiration with any consistency due to cervical dystonia though no aspiration noted on the study. (5) Cervical dystonia: (6) Parkinson's disease: Continue with home dose of carbidopa/levodopa. Aspiration, seizure precautions. (7) Elevated troponin: Most likely demand ischemia. Echocardiogram shows no regional wall motion abnormality. Patient does not have any chest pain. Appreciate A1c, lipid panel. Once patient is more stable can plan for a Lexiscan stress test as an outpatient depending on goals. (8) S/P percutaneous endoscopic gastrostomy (PEG) tube placement: (9) Neutropenia: Start on neutropenic precautions. Plan CODE STATUS: Discussed in detail with patient at bedside. She does not want any resuscitation. DNR/DNI. N.p.o., PEG tube feeds at baseline. Protonix for PUD ppx SCDs for DVT prophylaxis, hold off on medical prophylaxis. Plan for the day: Continue to keep NPO. Awaiting further goals of care discussions. Patient continues to remain neutropenic. Most likely in setting of past EBV infection. Continue to monitor CBC daily. Neutropenic precautions. Continue with IV antibiotics for now. On discharge we will switch to oral antibiotics to finish a 7-day course. Continue with PEG tube feeds. Discharge plan: If patient's blood work remains stable we will plan to discharge in next 24 hours back to SNF. Discharge plan: Plan to discharge back within next 24 hours with patient's oxygen supplementation and blood work remained stable on oral antibiotics. Case management confirms patient can go over the weekend [facility]. Attestations 2 Medical Necessity Statement*: Requires further hospitalization for management of hypoxia in setting of aspiration pneumonitis, neutropenia, stable anemia Coding Level of Care Code Acute Code for [facility] Diagnoses Sepsis A41.9 Aspiration pneumonia J69.0 Anemia D64.9 Dysphagia R13.10 Cervical dystonia G24.3 Parkinson's disease G20.A1 Elevated troponin R79.89 S/P percutaneous endoscopic gastrostomy (PEG) tube placement Z93.1 Neutropenia D70.9
[2023-03-29] MEDS: carbidopa-levodopa ER 50-200mg Tablet 1 EACH OG-TUBE (17:26)
[2023-03-29 22:14] LABS: E. Chaffeensis AB IGG <1:64; E. Chaffeensis AB IGM <1:20
[2023-03-29 22:59] LABS: Vancomycin Trough 20.7 ug/mL (10-15)
[2023-03-30] VITALS (8 sets, daily range): BP systolic 110–120; BP diastolic 65–74; PULSE 75–79; RESP 15–18; TEMP 36.7–37.1; O2SAT 88–97; BMI 29.6
[2023-03-30] MEDS: piperacillin-tazobactam 3.375 GM in sodium chloride 0.9% (plus) 50 ML IV ×2 (00:32→06:33)
[2023-03-30] MEDS: vancomycin 1,000 MG in sodium chloride 0.9% 250 ML 250 MG IV (03:20)
[2023-03-30] MEDS: carbidopa-levodopa 25-250mg Tablet 2 EACH OG-TUBE ×2 (06:33→12:02)
[2023-03-30] MEDS: sodium chloride 0.9% 1,000 ML 50 ML IV (08:52)
[2023-03-30] MEDS: gabapentin 100 mg Capsule PEG-TUBE (08:52)
[2023-03-30] MEDS: venlafaxine 75 mg Tablet PEG-TUBE (08:52)
[2023-03-30] MEDS: doxycycline 100 mg Tablet PO (08:52)
[2023-03-30] MEDS: pantoprazole 40 mg SDV IVP (09:13)
[2023-03-30 09:46] LABS: Eosinophils % 1.3 %; Hematocrit 28.9 % (36-47); Lymphocytes # 0.9 10^3/uL (0.8-4.8); Lymphocytes % 38.3 %; Mean Corpuscular HGB Conc 31.5 g/dL (30-55); Mean Corpuscular Hemoglobin 33.3 pg (27-33); Mean Corpuscular Volume 105.9 fl (85-98); Mean Platelet Volume 9.5 fL (7.4-10.4); Monocytes # 0.9 10^3/uL (0.2-0.9); Monocytes % 41.4 %; Nucleated Red Blood Cells % 0 %; Platelet Count 121 10^3/cmm (157-399); Red Blood Count 2.73 10^6/uL (3.85-5.65); Red Cell Distribution Width 21.9 % (12.1-15.1); White Blood Count 2.27 10^3/uL (3.29-11.43)
[2023-03-30 10:03] LABS: Neutrophils # 0.43 10^3/uL (1.8-7.7)
[2023-03-30] MEDS: lanolin oint 7 gm 1 APPLIC TOPICAL (10:06)
[2023-03-30] MEDS: carbidopa-levodopa 25-250mg Tablet 1.5 EACH OG-TUBE (10:06)
--- NOTE | 2023-03-30 12:32 | PM.DCS ---
Discharge Providers Date of Admission: 03/25/23 17:20 Date of Discharge: March 30, 2023 Attending Provider at Admission: Ismael Winters MD Attending Provider at Discharge: Ismael Winters MD Primary Care Provider: Daysi Lopez MD Diagnoses at Discharge Discharge Diagnosis (1) Sepsis: Status: Acute (2) Aspiration pneumonia: Status: Acute (3) Anemia: Status: Acute (4) Dysphagia: Status: Acute (5) Cervical dystonia: Status: Acute (6) Parkinson's disease: Status: Acute (7) Elevated troponin: Status: Acute (8) S/P percutaneous endoscopic gastrostomy (PEG) tube placement: Status: Acute (9) Neutropenia: Status: Acute Reason for Visit Reason for Visit: SOB Hospital Course Hospital Course Liliana Davis is a 62 year old female with past medical history of Parkinson's, half-way resident, PEG tube feeding with recent history of multiple aspirations was brought into the ER from the half-way today because of difficulty in breathing which started today morning along with high-grade fever. As per the family members at bedside patient has had issues with aspiration recently within the last 1 month with episodes of choking even on her spit. Patient continues to get PEG tube feeds 3 times per day at half-way along with oral intake which has been cutting down recently. Patient has baseline is not on oxygen but in the ER required up to 2 L of oxygen supplementation. On presentation to the ER she had a fever up to 102 Fahrenheit. Patient was admitted to the hospital for further evaluation and management of acute hypoxia with concerns for aspiration pneumonitis. On admission she was found to be in sepsis. She was started on broad-spectrum antibiotics. She was also found to have acute anemia. Acute blood loss anemia was ruled out given negative for blood. Patient was also found to be pancytopenic with neutropenia. Multiple blood work was done which were negative for further etiologies of pancytopenia. Her EBV serologies came back positive. There is concern for pancytopenia in setting of recent EBV infection though cannot be confirmed. During hospitalizations patient's blood culture and sputum culture remain negative. She received monitor PRBC after which her hemoglobin remained stable. Echocardiogram was done which showed normal EF without regional wall motion abnormality. Patient underwent modified barium swallow study which was consistent with no aspiration though patient was deemed to be at a high risk of aspiration with any consistency given the anatomy from cervical dystonia. Goals of care discussion with concerns for chronic aspiration were discussed in detail with the patient. Patient verbalized understanding and states eating and swallowing was important to her and she wants to continue doing going forward even though if it means that she would have recurrent pneumonias. Patient wants to remain DNR/DNI. She has been discharged in hemodynamically stable condition on oral Augmentin and Levaquin for next 5 days. She is to have repeat CBC drawn in 1 week. Home O2 evaluation was done prior to discharge. Physical Exam Narrative: General: No acute distress, AO x3, NC oxygen supplementation, Chronically sick appearing, cervical dystonia to the left. HEENT: PERRLA, pupils bilaterally equal and reactive Chest: Normal vesicular breath sounds all over lung eric with coarse crackles in right lower zone CVS: S1-S2 regular, no murmurs, no tachycardia, no gallops, no rubs Abdomen: Soft, nontender, no organomegaly, bowel sounds present, morbidly obese Neuro: No focal deficits, no facial deformity, AO x3, power not assessed Discharge Data Studies Completed and Pending Completed Studies During Hospitalization Category Date Time Status CT angio chest PE protcl [id number] Routine Cat Scan 03/26/23 19:49 Completed XR chest 1V portable [id number] Stat Exams 03/25/23 13:11 [place] [id number] Routine Ultrasound 03/25/23 19:49 Completed CV. echo complete* [id number] Routine Ultrasound 03/26/23 12:29 Completed Pending at discharge Category Date Time Status MBS [FL barium swallow modifd [id number]] Routine Exams 03/27/23 12:20 Taken Blood Culture Stat Lab 03/25/23 13:28 Results Tick Panel Routine Lab 03/26/23 04:48 Results Radiology Impressions Chest X-Ray 03/25/23 13:11 IMPRESSION: Left lower lobe atelectasis, possibly with a superimposed pneumonia. Laboratory Results WBC 2.27 10^3/uL (3.29-11.43) L 03/30/23 09:37 Corrected WBC Cancelled 03/25/23 17:13 RBC 2.73 10^6/uL (3.85-5.65) L 03/30/23 09:37 Hgb 9.10 g/dL (11.27-16.99) L 03/30/23 09:37 Hct 28.9 % (36-47) L 03/30/23 09:37 MCV 105.9 fl (85-98) H 03/30/23 09:37 MCH 33.3 pg (27-33) H 03/30/23 09:37 MCHC 31.5 g/dL (30-55) 03/30/23 09:37 RDW 21.9 % (12.1-15.1) H 03/30/23 09:37 Plt Count 121 10^3/cmm (157-399) L 03/30/23 09:37 MPV 9.5 fL (7.4-10.4) 03/30/23 09:37 Gran % Cancelled 03/25/23 17:13 Neut % (Auto) 19.0 % 03/30/23 09:37 Lymph % (Auto) 38.3 % 03/30/23 09:37 Forest % (Auto) 41.4 % 03/30/23 09:37 Eos % (Auto) 1.3 % 03/30/23 09:37 Baso % (Auto) 0.0 % 03/30/23 09:37 Neut # (Auto) 0.43 10^3/uL (1.8-7.7) L* 03/30/23 09:37 Lymph # (Auto) 0.9 10^3/uL (0.8-4.8) 03/30/23 09:37 Forest # (Auto) 0.9 10^3/uL (0.2-0.9) 03/30/23 09:37 Eos # (Auto) 0.0 10^3/uL (0.0-0.8) 03/30/23 09:37 Baso # (Auto) 0.0 10^3/uL (0.0-0.1) 03/30/23 09:37 Absolute Gran (auto) Cancelled 03/25/23 17:13 Nucleated RBC % (auto) 0 % 03/30/23 09:37 Total Counted 100 (0-100) 03/25/23 13:21 Atypical Lymphs % 20.0 % (0-5) H 03/25/23 13:21 Absolute Neutrophils 0.9 10^3/cmm (1.4-6.5) L 03/25/23 13:21 Segmented Neutrophils 30 % 03/25/23 13:21 Abs Segm Neuts (Man) 0.9 10/cmm (1.6-7.1) L 03/25/23 13:21 Band Neutrophils 2.0 % 03/25/23 13:21 Abs Band Neuts (Man) 0.1 10^3/cmm (0.0-1.2) 03/25/23 13:21 Absolute Lymphocytes 2.0 10^3/cmm (1.2-3.4) 03/25/23 13:21 Lymphocytes (Manual) 48 % 03/25/23 13:21 Monocytes (Manual) 0.0 % 03/25/23 13:21 Absolute Monocytes 0.0 10^3/cmm (0.1-0.6) L 03/25/23 13:21 Eosinophils (Manual) 0 % 03/25/23 13:21 Absolute Eosinophils 0.0 10^3/cmm (0.0-0.7) 03/25/23 13:21 Basophils (Manual) 0.0 % 03/25/23 13:21 Absolute Basophils 0.0 10^3/cmm (0.0-0.2) 03/25/23 13:21 Nucleated RBCs 1.0 /100WBC (0-1) 03/25/23 13:21 Nucleated RBCs # 0.0 /100WBC 03/30/23 09:37 Platelet Estimate Normal (Normal) 03/25/23 13:21 Hypochromasia 1+ H 03/25/23 13:21 Anisocytosis 2+ H 03/25/23 13:21 Macrocytosis 1+ H 03/25/23 13:21 Peripher Smr Path Cons Sent for review 03/26/23 04:48 Haptoglobin 219.0 mg/L (30-200) H 03/26/23 04:48 D-Dimer 4.97 ug/mLFEU (0-0.59) H 03/25/23 13:21 Specimen Type Arterial 03/25/23 13:17 Sample Site Radial, left 03/25/23 13:17 ABG pH 7.49 (7.35-7.45) H 03/25/23 13:17 ABG pCO2 43.4 mmHg (35-45) 03/25/23 13:17 ABG pO2 48.6 mmHg (80.0-100.0) L 03/25/23 13:17 ABG PO2/FiO2 Ratio 0 03/25/23 13:17 ABG HCO3 32.6 mmol/L (22-26) H 03/25/23 13:17 ABG O2 Saturation 85.8 03/25/23 13:17 ABG Base Excess 8.4 mmol/L (-2.0-2.0) H 03/25/23 13:17 Faraz Test Pos 03/25/23 13:17 A-a O2 Gradient 6.4 mmHg (5-10) 03/25/23 13:17 Hematocrit 22.6 % (37-47) L 03/25/23 13:17 Hgb O2 Saturation 82.6 % (95-100) L 03/25/23 13:17 Carboxyhemoglobin 3.0 %THgb (0.4-20.1) 03/25/23 13:17 Methemoglobin 0.8 % (0.4-1.5) 03/25/23 13:17 Total Hemoglobin 7.4 g/dL (12-16) L 03/25/23 13:17 Sodium 141.0 mmol/L (131-143) 03/25/23 13:17 Potassium 4.6 mmol/L (3.5-5.0) 03/25/23 13:17 Glucose 130.0 mg/dL (70-115) H 03/25/23 13:17 Ionized Calcium 1.1 mmol/L (1.1-1.4) 03/25/23 13:17 O2 Delivery Device Room air 03/25/23 13:17 FiO2 21.0 % 03/25/23 13:17 Scaffold Builder ID Monro 03/25/23 13:17 Sodium 144 mmol/L (136-145) 03/29/23 04:21 Potassium 4.0 mmol/L (3.5-5.1) 03/29/23 04:21 Chloride 109 mmol/L (98-107) H 03/29/23 04:21 Carbon Dioxide 28 mmol/L (22-29) 03/29/23 04:21 Anion Gap 11.0 (5-19) 03/29/23 04:21 BUN 16 mg/dL (8-23) 03/29/23 04:21 Creatinine 0.4 mg/dL (0.5-0.9) L 03/29/23 04:21 GFR Calculation 162.3 mL/min (90-130) H 03/29/23 04:21 Glucose 131 mg/dL (65-115) H 03/29/23 04:21 Estimat Average Glucose 100 03/26/23 04:48 Hemoglobin A1c 5.1 % (4.0-6.0) 03/26/23 04:48 Calculated Osmolality 301 mOsm/kg (285-295) H 03/29/23 04:21 Lactic Acid 2.2 mmol/L (0.5-2.2) 03/25/23 13:21 Lactic Acid (Sepsis) 1.8 mmol/L (0.5-2.2) 03/25/23 16:22 Calcium 8.2 mg/dL (8.5-10.5) L 03/29/23 04:21 Phosphorus 2.7 mg/dL (2.5-4.5) 03/29/23 04:21 Magnesium 1.9 mg/dL (1.7-2.3) 03/29/23 04:21 Iron 159 ug/dL (37-145) H 03/25/23 19:54 TIBC 229 mcg/dl 03/25/23 19:54 % Saturation 69.4 % (20-50) H 03/25/23 19:54 Unsat Iron Binding 70 ug/dL (112-347) L 03/25/23 19:54 Total Bilirubin 0.6 mg/dL (0.15-1.2) 03/29/23 04:21 AST 83 U/L (0-32) H 03/29/23 04:21 ALT 119 U/L (0-33) H 03/29/23 04:21 Alkaline Phosphatase 107 U/L (35-105) H 03/29/23 04:21 Lactate Dehydrogenase 405 U/L (135-214) H 03/26/23 04:48 Creatine Kinase 30 U/L (26-192) 03/25/23 13:21 Troponin T Baseline 138 ng/L (0-10) H* 03/25/23 13:21 Troponin T 120 Minute 147.9 ng/L (0-10) H 03/25/23 15:20 Delta Troponin T 9.9 ABS# (0-10) 03/25/23 15:20 Troponin T Hi Sens 6Hr 126.8 ng/L (0-10) H 03/25/23 19:54 Troponin T Hi Sens 6Hr Delta -11.2 ng/L (0-12) L 03/25/23 19:54 NT-Pro-B Natriuret Pep 5372 pg/mL (0-125) H 03/25/23 13:21 Total Protein 5.6 g/dL (6.6-8.7) L 03/29/23 04:21 Albumin 3.1 g/dL (3.5-5.2) L 03/29/23 04:21 Globulin 2.5 g/dL (1.3-4.6) 03/29/23 04:21 Triglycerides 57 mg/dL (0-150) 03/26/23 04:48 Cholesterol 107 mg/dL (0-200) 03/26/23 04:48 LDL Cholesterol, Calc 64 mg/dL (50-129) 03/26/23 04:48 HDL Cholesterol 32 mg/dL (60-100) L 03/26/23 04:48 LDL/HDL Ratio 2.00 RATIO (0.00-3.22) 03/26/23 04:48 Cholesterol/HDL Ratio 3.34 mg/dL (0.0-4.40) 03/26/23 04:48 Vitamin B12 387 pg/mL (232-1245) 03/25/23 19:54 Folate 16.4 ng/mL (4.8-37.3) 03/26/23 04:48 Homocysteine 10.96 03/26/23 04:48 Procalcitonin 0.21 ng/mL (0-0.5) 03/26/23 04:48 TSH 0.37 uIU/mL (0.27-4.20) 03/25/23 19:54 Urine Color Dark yellow (Yellow) 03/25/23 13:58 Urine Appearance Cloudy (CLEAR) A 03/25/23 13:58 Urine pH 8 (5-7) H 03/25/23 13:58 Ur Specific [place] 1.015 (1.005-1.030) 03/25/23 13:58 Urine Protein Neg (Negative) 03/25/23 13:58 Urine Glucose (UA) Norm (Normal) 03/25/23 13:58 Urine Ketones Negative (Negative) 03/25/23 13:58 Urine Blood Trace (Negative) H 03/25/23 13:58 Urine Nitrate Negative (Negative) 03/25/23 13:58 Urine Bilirubin Neg (Negative) 03/25/23 13:58 Prot Sulfosalicylic Acd Positive (Negative) 03/25/23 13:58 Urine Urobilinogen Norm mg/dL (Negative) 03/25/23 13:58 Ur Leukocyte Esterase 1+ (Negative) H 03/25/23 13:58 Urine RBC 0-4 /hpf (0-2) H 03/25/23 13:58 Urine WBC 0-4 /hpf (0-5) H 03/25/23 13:58 Ur Squamous Epith Cells Rare /hpf (0-5) 03/25/23 13:58 Ur Transition Epith Cell Rare /hpf 03/25/23 13:58 Triple Phos Crystals 5-10 /hpf H 03/25/23 13:58 Other Crystals Amonium biurate 1+ /hpf 03/25/23 13:58 Amorphous Sediment 1+ /hpf 03/25/23 13:58 Urine Bacteria 1+ /hpf (NONE) H 03/25/23 13:58 Urine Mucus Trace /hpf 03/25/23 13:58 Nasal Influ A H1 2008 PCR Not detected (NOT DETECT) 03/25/23 21:25 Vancomycin Trough 20.7 ug/mL (10-15) H 03/29/23 22:31 Adenovirus (PCR) Not detected (NOT DETECT) 03/25/23 21:25 Lyme Ab (Western Blot) <0.90 index 03/26/23 04:48 C. pneumoniae DNA (PCR) Not detected (NOT DETECT) 03/25/23 21:25 Coronavirus 229E (PCR) Not detected (NOT DETECT) 03/25/23 21:25 CMV IgG Ab <0.60 U/mL 03/27/23 04:45 CMV IgM Ab <30.00 AU/mL 03/27/23 04:45 E. chaffeensis IgG Ab <1:64 03/26/23 04:48 E. chaffeensis IgM Ab <1:20 03/26/23 04:48 E. chaffeensis Interp See note 03/26/23 04:48 E. chaffeensis Comment Not Reportable 03/26/23 04:48 EBV IgG Ab 315.00 U/mL H 03/27/23 04:45 EBV IgM Ab <36.00 U/mL 03/27/23 04:45 EBV Nuclear Antigen 37.60 U/mL H 03/27/23 04:45 EBV Interpretation See note 03/27/23 04:45 Monoscreen Negative (Negative) 03/27/23 04:45 Human Metapneumovir PCR Not detected (NOT DETECT) 03/25/23 21:25 Influenza A (H1) PCR Not detected (NOT DETECT) 03/25/23 21:25 Influenza A (H3) PCR Not detected (NOT DETECT) 03/25/23 21:25 Influenza Type A (PCR) Not detected (NOT DETECT) 03/25/23 21:25 Influenza Type B (PCR) Not detected (NOT DETECT) 03/25/23 21:25 M. pneumoniae (PCR) Not detected (NOT DETECT) 03/25/23 21:25 Parainfluenza 1 (PCR) Not detected (NOT DETECT) 03/25/23 21:25 Parainfluenza 2 (PCR) Not detected (NOT DETECT) 03/25/23 21:25 Parainfluenza 3 (PCR) Not detected (NOT DETECT) 03/25/23 21:25 Parainfluenza 4 (PCR) Not detected (NOT DETECT) 03/25/23 21:25 RSV Type A (PCR) Not detected (NOT DETECT) 03/25/23 21:25 RSV Type B (PCR) Not detected (NOT DETECT) 03/25/23 21:25 Entero/Rhino (PCR) Not detected (NOT DETECT) 03/25/23 21:25 SARS-CoV-2 (PCR) Not detected (NOT DETECT) 03/25/23 21:25 Blood Type B Negative 03/25/23 15:20 Rho(D) Type Negative 03/25/23 15:20 Antibody Screen Negative 03/25/23 15:20 Crossmatch See Detail 03/25/23 15:20 Vitals Last Vital Signs Temp 98.3 F 03/30/23 10:47 Pulse 78 03/30/23 10:47 Resp 15 03/30/23 10:47 BP 110/65 03/30/23 10:47 Pulse Ox 93 03/30/23 10:47 O2 Del Method Room Air 03/30/23 10:47 O2 Flow Rate 2 03/30/23 10:06 Discharge Plan Discharge Patient Disposition: Xfer [facility] Condition: Stable Prescriptions: New amoxicillin-pot clavulanate 875-125 mg tablet 1 tab PO BID Qty: 10 0RF levofloxacin 750 mg tablet 750 mg PO Q24H 5 Days Qty: 5 0RF Continued Zyrtec 10 mg capsule 10 mg feeding tube DAILY triamcinolone acetonide [Nasacort] 55 mcg aerosol,spray 1 spray INTRANASAL BID sennosides [senna] 8.6 mg tablet 8.6 mg feeding tube BID PRN (Reason: Constipation) venlafaxine 75 mg tablet 75 mg feeding tube BID tramadol 50 mg tablet 50 mg PO Q8H PRN (Reason: Pain) gabapentin 100 mg Capsule 100 mg feeding tube TID docusate sodium 50 mg/5 mL Liquid 200 mg feeding tube DAILY PRN (Reason: Constipation) carbidopa-levodopa 25-100 mg Tablet Extended Release See Rx Instructions .ROUTE .COMPLEX Rx Instructions: 2 tab orally at 5 pm magnesium oxide 250 mg magnesium Tablet 250 mg feeding tube DAILY Spiriva Respimat 2.5 mcg/actuation mist 2 puff INHALATION BID acetaminophen 325 mg Tablet See Rx Instructions .ROUTE .COMPLEX PRN (Reason: Pain, Mild) Rx Instructions: 650 mg per g tube every 4 hours as needed for mild or moderate pain. loperamide 2 mg Capsule 2 mg PO Q6H PRN (Reason: loose stools) Miralax 17 gram Powder In Packet 17 g PO DAILY PRN (Reason: Constipation) Milk of Magnesia 400 mg/5 mL Suspension 30 ml PO DAILY PRN (Reason: Constipation) Dulcolax (bisacodyl) 10 mg Suppository 10 mg ME DAILY PRN (Reason: Constipation) Fleet Enema 19-7 gram/118 mL Enema 118 ml ME DAILY PRN (Reason: Constipation) omeprazole 20 mg Capsule,Delayed Release(Dr/Ec) 40 mg feeding tube DAILY carbidopa-levodopa 25-250 mg tablet See Rx Instructions .ROUTE .COMPLEX Rx Instructions: Take 2 tablets per g tube at 5:30 am, 1.5 tablets at 9:30am, and 2 tablets at 1 pm. Nyamyc 100,000 unit/gram powder See Rx Instructions .ROUTE .COMPLEX Rx Instructions: 1 applic topically to abdominal folds, groin, umbilicus, under breasts twice daily for candidias Changed furosemide 20 mg tablet 20 mg feeding tube DAILY PRN (Reason: edema) Qty: 10 0RF Discharge Orders: Discharge Order (Routine); Ordered 03/30/23 Ordered By: Ismael Winters Referrals: [facility] [place] [Outside] Daysi Lopez MD [Primary Care Provider] - 4-7 days Discharge Diet: Usual diet and Resume prior tube feeds Discharge Activity: Resume usual activity and Increase activity as tolerated Patient Instructions: Amoxicillin/Clavulanate Potassium (By mouth), Levofloxacin (By mouth), Opioid Safety Activity Restrictions/Additional Instructions: High concerns for aspiration pneumonitis. Patient wants to continue consuming food by mouth when possible. Goals of care discussions were done in detail. Augmentin and Levaquin for next 5 days. Resume tube feeds as before. Discharge Attestations Time Spent in Discharge Care*: greater than 30 min Specific Discharge Activities: educating patient, educating and/or supporting family/caregiver, discussing with pcp/other providers, discussing with dependency case manager/social workers/dc planners, documenting/other paperwork and evaluating patient/reviewing data Quality Metrics Clinical Quality Measures [ No reported AMI, CVA or VTE this stay] Coding Level of Care Code 94756 Total time (in minutes) for Discharge: 50 Diagnoses Sepsis A41.9 Aspiration pneumonia J69.0 Anemia D64.9 Dysphagia R13.10 Cervical dystonia G24.3 Parkinson's disease G20.A1 Elevated troponin R79.89 S/P percutaneous endoscopic gastrostomy (PEG) tube placement Z93.1 Neutropenia D70.9
[2023-04-01 16:49] LABS: RMSF IGG NOT DETECTED; RMSF IGM NOT DETECTED
== END 2023-03-30 16:50 | disposition skilled nursing facility (03) | DRG 871 ==
LOC: ER 16:28 → MEDSURG 17:20
PROVIDERS: Admitting Provider Student in an Organized Health Care Education/Training Program; Emergency Provider Family Medicine; PCP Family Medicine; Visit Provider Student in an Organized Health Care Education/Training Program
DX: A41.9 Sepsis, unspecified organism (principal); J69.0 Pneumonitis due to inhalation of food and vomit; D61.818 Other pancytopenia; I24.89 Other forms of acute ischemic heart disease; G20.A1 Parkinson's disease without dyskinesia, without mention of fluctuations; N32.81 Overactive bladder; R33.9 Retention of urine, unspecified; Z93.1 Gastrostomy status; R13.10 Dysphagia, unspecified; G24.3 Spasmodic torticollis; Z66 Do not resuscitate; R09.02 Hypoxemia
CPT/HCPCS: 36415; 36430; 36600; 71045; 71275; 74230; 80051; 80053; 80061; 80202; 81001; 82274; 82330; 82550; 82607; 82746; 82805; 83010; 83036; 83090; 83540; 83550; 83605; 83615; 83735; 83880; 84100; 84145; 84443; 84484; 85007; 85014; 85018; 85025; 85378; 86308; 86618; 86664; 86665; 86666; 86757; 86850; 86900; 86920; 87040; 87486; 87581; 87633; 92611; 93005; 93306; 93970; 94640; 94664; 94760; 96365; 99285; C9113; J2543; J3370; J7030; J7050; P9016; Q9967

== ENCOUNTER 2023-04-13 04:27 | Inpatient (IN) | payer MEDICARE, OTHER, SELFPAY ==
[2023-04-13] VITALS (12 sets, daily range): BP systolic 90–119; BP diastolic 47–74; PULSE 79–101; RESP 16–21; TEMP 36.4–38.4; O2SAT 93–97
--- NOTE | 2023-04-13 04:34 | ECG_ITS ---
[facility] Test Date: 2023-04-13 Pat Name: Liliana Davis Department: Room: 257 Gender: Female Drop Wire Aligner: : 1960 Requested By: Fawad Madrid Order Number: [id number] Matilda MD: Juana Chaierz M.D. Measurements Intervals [place] Rate: 99 P: 27 TN: 123 QRS: -30 QRSD: 91 T: 20 QT: 321 QTc: 412 Interpretive Statements SINUS RHYTHM BORDERLINE LEFT AXIS DEVIATION [QRS AXIS < -20] LOW QRS VOLTAGE IN PRECORDIAL LEADS [QRS DEFLECTION < 1.0 mV IN CHEST LEADS] PATTERN CONSISTENT WITH PULMONARY DISEASE INCOMPLETE RIGHT BUNDLE BRANCH BLOCK [90+ ms QRS DURATION, TERMINAL R IN V1/V2, 40+ ms S IN I/aVL/V4/V5/V6] Compared to ECG 03/25/2023 15:28:42 Incomplete right bundle-branch block now present Electronically Signed On 04-13-2023 19:41:43 DATABASE COORDINATOR by Juana Chairez M.D. [email or web address]
--- NOTE | 2023-04-13 04:35 | XRR_ITS ---
PROCEDURE INFORMATION: Exam: XR Chest Exam date and time: 04/13/2023 4:39 AM Age: 62 years old Clinical indication: Shortness of breath; Prior surgery; Surgery date: 6+ months; Surgery type: Peg tube; Patient HX: EMS arrival from custodial for SOB. TECHNIQUE: Imaging protocol: Radiologic exam of the chest. Views: 1 view. COMPARISON: CT angio chest PE protcl [id number] 03/26/2023 10:44 AM FINDINGS: Lungs: Low lung volumes. Increased density in the left lung base may be related to elevation of the left hemidiaphragm, atelectasis, or pneumonia. Subtle ground-glass densities in the right lung base may be related to small pleural effusion, atelectasis, mild pneumonia. Pleural spaces: See Lungs finding. Heart/Mediastinum: The cardiomediastinal silhouette is enlarged. Bones/joints: Unremarkable. XR/XR chest 1V portable [id number] IMPRESSION: Increased density in the left lung base may be related to elevation of the left hemidiaphragm, atelectasis, or pneumonia.
[2023-04-13] MEDS: acetaminophen 650 mg/20.3 mL UDC PO (04:52)
[2023-04-13 04:54] LABS: Eosinophils % 0.4 %; Hematocrit 23.1 % (36-47); Lymphocytes # 3.5 10^3/uL (0.8-4.8); Lymphocytes % 51.4 %; Mean Corpuscular HGB Conc 32.9 g/dL (30-55); Mean Corpuscular Hemoglobin 33.9 pg (27-33); Mean Corpuscular Volume 103.1 fl (85-98); Mean Platelet Volume 9.7 fL (7.4-10.4); Monocytes # 2.7 10^3/uL (0.2-0.9); Monocytes % 40.1 %; Neutrophils % 7.7 %; Nucleated Red Blood Cells # 0.1 /100WBC; Nucleated Red Blood Cells % 1.5 %; Platelet Count 175 10^3/cmm (157-399); Red Blood Count 2.24 10^6/uL (3.85-5.65); Red Cell Distribution Width 22.9 % (12.1-15.1); White Blood Count 6.73 10^3/uL (3.29-11.43)
[2023-04-13 04:54] LABS: ABG PCO2 53.8 mmHg (35-45); ABG PH Result 7.41 (7.35-7.45); Arterial Blood Gas Hematocrit 23.9 % (37-47); Base Excess ABG 8.6 mmol/L (-2.0-2.0); Blood Gas Allen Test Pos; Blood Gas LPM 2.5 %; Blood Gas Operator Identificat WALCI; Blood Gas Sample Site Radial, right; Blood Gas Sample Type Arterial; Carboxyhemoglobin 2.5 %THgb (0.4-20.1); HCO3 ABG 34.2 mmol/L (22-26); HGB O2 Sat 93.5 % (95-100); Methemoglobin 0.9 % (0.4-1.5); Oxygen Device NC; PO2 ABG 75.1 mmHg (80.0-100.0); Total Hemoglobin 7.8 g/dL (12-16)
[2023-04-13] MEDS: ipratropium-albuterol 3 mL Neb INHALATION (05:06)
--- NOTE | 2023-04-13 05:06 | ED_ITS ---
HPI - SOB/Dyspnea 2 General: Chief Complaint: Shortness of Breath/Dyspnea Stated Complaint: Resp Distress Time Seen by Provider: 04/13/23 04:28 History of Present Illness: HPI Narrative: 62-year-old female longterm patient with a history of parkinsonism. She presents with a fever, and shortness of breath. Fevers 101.2. She was short of breath this morning, with low saturations in the lower 80s on her 2 L. She had a recent admission for aspiration pneumonitis/pneumonia. She has a PEG tube. There was concern for continued aspiration. Associated symptoms: Reports chest pain and fever(s); Deny dizziness, nausea, palpitations or vomiting Review of Systems 2 Const: Reports: fever(s); Denies: chills or body aches Eyes: Denies: change in vision Card: Reports: chest pain; Denies: palpitations Resp: Reports: dyspnea and productive cough; Denies: non-productive cough or wheezing GI: Denies: nausea, vomiting, diarrhea or hematochezia : Denies: difficulty voiding Musc: Reports: neck pain Skin/Breast: Denies: rash Neuro: Reports: weakness in extremities; Denies: headache(s), dizziness or confusion PFSH ED 2 PFSH: Medical History History of colon polyps Multiple system atrophy Hip fracture, right Overactive bladder HX: benign breast biopsy Urinary retention Voiding dysfunction Mixed stress and urge urinary incontinence Superficial postoperative wound infection Asthma Closed intertrochanteric fracture of right hip Surgical History S/P percutaneous endoscopic gastrostomy (PEG) tube placement History of esophagogastroduodenoscopy (EGD) History of hip surgery History of back surgery Hx of tonsillectomy H/O tubal ligation Family History Mother , at age 46 Cancer malignant melanoma Father , at age 58 Cancer malignant melanoma Social History Smoking and tobacco/nicotine status: never used tobacco/nicotine Alcohol intake: never Substance/Drug Use: never Marital status: Current occupational status: disabled Physical Exam 2 HENMT: COMMON NORMALS: Normal external nose present FACE & SINUS: normal facial exam NOSE: Normal external nose present Eye: COMMON NORMALS: Equal, round and reactive pupils present PUPIL: Yes Equal, round and reactive pupils present Neck/C-Spine: GENERAL: Yes trachea midline Resp: EFFORT & INSPECTION: Yes tachypneic and Yes labored Cardio: COMMON NORMALS: regular rate and regular rhythm RATE: regular rate RHYTHM: regular rhythm GI: COMMON NORMALS: Normal to inspection, nondistended, normoactive bowel sounds present Extremity: COMMON NORMALS: no pedal edema Course 2 Vital Signs: Vital signs: Vital Signs Temperature 97.5 F L 04/13/23 17:25 Pulse Rate 82 04/13/23 17:25 Respiratory Rate 18 04/13/23 17:25 Blood Pressure 100/61 04/13/23 17:25 Pulse Oximetry 96 04/13/23 17:25 Oxygen Delivery Me thod Nasal Cannula 04/13/23 17:25 Oxygen Flow Rate 3 04/13/23 11:02 MDM - SOB/Dyspnea Medical Decision Making 62-year-old female with debilitating weakness. She is bedbound. She presents with an increased oxygen demand, fever, and cough. Fever was 101.2. Patient was given Tylenol. Blood pressure has been 100/50. Patient is anemic with a hemoglobin of 7.6, this is a decrease from her prior hospitalization which required transfusion up to mid nines. Her white blood cell count is only 6.7. BUN is 29 with a creatinine of 0.5. Chest x-ray reveals increased opacities in the bilateral lower lung eric. Blood gas shows a normal pH of 7.4. With significant fever, increased oxygen demand, and increasing opacities, she will be admitted for pneumonia, likely aspiration pneumonia versus pneumonitis. She is covered with vancomycin and Zosyn after blood cultures. Sepsis bolus was not given, as the patient appears mildly fluid overloaded on chest x-ray, and has a significantly elevated BNP of 3600. Hospitalist is aware and will see the patient. Lab Data 04/13/23 04:44 04/13/23 04:44 Labs/Radiology: Radiology Impressions Chest X-Ray 04/13/23 04:35 IMPRESSION: Increased density in the left lung base may be related to elevation of the left hemidiaphragm, atelectasis, or pneumonia. KUB X-Ray 04/13/23 16:41 IMPRESSION: Percutaneous gastric tube tip seen over the stomach with contrast in the stomach, negative for free extravasation. Laboratory Results WBC 6.73 10^3/uL (3.29-11.43) 04/13/23 04:44 RBC 2.24 10^6/uL (3.85-5.65) L 04/13/23 04:44 Hgb 7.60 g/dL (11.27-16.99) L 04/13/23 04:44 Hct 23.1 % (36-47) L 04/13/23 04:44 MCV 103.1 fl (85-98) H 04/13/23 04:44 MCH 33.9 pg (27-33) H 04/13/23 04:44 MCHC 32.9 g/dL (30-55) 04/13/23 04:44 RDW 22.9 % (12.1-15.1) H 04/13/23 04:44 Plt Count 175 10^3/cmm (157-399) 04/13/23 04:44 MPV 9.7 fL (7.4-10.4) 04/13/23 04:44 Neut % (Auto) 7.7 % 04/13/23 04:44 Lymph % (Auto) 51.4 % 04/13/23 04:44 [place] % (Auto) 40.1 % 04/13/23 04:44 Eos % (Auto) 0.4 % 04/13/23 04:44 Baso % (Auto) 0.0 % 04/13/23 04:44 Neut # (Auto) 0.51 10^3/uL (1.8-7.7) L* 04/13/23 04:44 Lymph # (Auto) 3.5 10^3/uL (0.8-4.8) 04/13/23 04:44 [place] # (Auto) 2.7 10^3/uL (0.2-0.9) H 04/13/23 04:44 Eos # (Auto) 0.0 10^3/uL (0.0-0.8) 04/13/23 04:44 Baso # (Auto) 0.0 10^3/uL (0.0-0.1) 04/13/23 04:44 Nucleated RBC % (auto) 1.5 % 04/13/23 04:44 Nucleated RBCs # 0.1 /100WBC 04/13/23 04:44 D-Dimer 2.40 ug/mLFEU (0-0.59) H 04/13/23 04:44 Specimen Type Arterial 04/13/23 04:43 Sample Site Radial, right 04/13/23 04:43 ABG pH 7.41 (7.35-7.45) 04/13/23 04:43 ABG pCO2 53.8 mmHg (35-45) H 04/13/23 04:43 ABG pO2 75.1 mmHg (80.0-100.0) L 04/13/23 04:43 ABG HCO3 34.2 mmol/L (22-26) H 04/13/23 04:43 ABG Base Excess 8.6 mmol/L (-2.0-2.0) H 04/13/23 04:43 [place] Test Pos 04/13/23 04:43 Hematocrit 23.9 % (37-47) L 04/13/23 04:43 Hgb O2 Saturation 93.5 % (95-100) L 04/13/23 04:43 Carboxyhemoglobin 2.5 %THgb (0.4-20.1) 04/13/23 04:43 Methemoglobin 0.9 % (0.4-1.5) 04/13/23 04:43 Total Hemoglobin 7.8 g/dL (12-16) L 04/13/23 04:43 O2 Delivery Device Nc 04/13/23 04:43 O2 Liters/Min 2.5 % 04/13/23 04:43 Electrical Maintenance Supervisor ID [place] 04/13/23 04:43 Sodium 138 mmol/L (136-145) 04/13/23 04:44 Potassium 4.2 mmol/L (3.5-5.1) 04/13/23 04:44 Chloride 99 mmol/L (98-107) 04/13/23 04:44 Carbon Dioxide 31 mmol/L (22-29) H 04/13/23 04:44 Anion Gap 12.2 (5-19) 04/13/23 04:44 BUN 29 mg/dL (8-23) H 04/13/23 04:44 Creatinine 0.5 mg/dL (0.5-0.9) 04/13/23 04:44 GFR Calculation 125.4 mL/min (90-130) 04/13/23 04:44 Glucose 112 mg/dL (65-115) 04/13/23 04:44 Calculated Osmolality 293 mOsm/kg (285-295) 04/13/23 04:44 Lactic Acid 0.8 mmol/L (0.5-2.2) 04/13/23 04:44 Calcium 8.9 mg/dL (8.5-10.5) 04/13/23 04:44 Total Bilirubin 0.5 mg/dL (0.15-1.2) 04/13/23 04:44 AST 16 U/L (0-32) 04/13/23 04:44 ALT 21 U/L (0-33) 04/13/23 04:44 Alkaline Phosphatase 100 U/L (35-105) 04/13/23 04:44 NT-Pro-B Natriuret Pep 3589 pg/mL (0-125) H 04/13/23 04:44 Total Protein 6.6 g/dL (6.6-8.7) 04/13/23 04:44 Albumin 3.4 g/dL (3.5-5.2) L 04/13/23 04:44 Globulin 3.2 g/dL (1.3-4.6) 04/13/23 04:44 Procalcitonin 0.23 ng/mL (0-0.5) 04/13/23 04:44 Nasal Influ A H1 2008 PCR Not detected (NOT DETECT) 04/13/23 05:09 Adenovirus (PCR) Not detected (NOT DETECT) 04/13/23 05:09 C. pneumoniae DNA (PCR) Not detected (NOT DETECT) 04/13/23 05:09 Coronavirus 229E (PCR) Not detected (NOT DETECT) 04/13/23 05:09 Human Metapneumovir PCR Not detected (NOT DETECT) 04/13/23 05:09 Influenza A (H1) PCR Not detected (NOT DETECT) 04/13/23 05:09 Influenza A (H3) PCR Not detected (NOT DETECT) 04/13/23 05:09 Influenza Type A (PCR) Not detected (NOT DETECT) 04/13/23 05:09 Influenza Type B (PCR) Not detected (NOT DETECT) 04/13/23 05:09 M. pneumoniae (PCR) Not detected (NOT DETECT) 04/13/23 05:09 Parainfluenza 1 (PCR) Not detected (NOT DETECT) 04/13/23 05:09 Parainfluenza 2 (PCR) Not detected (NOT DETECT) 04/13/23 05:09 Parainfluenza 3 (PCR) Not detected (NOT DETECT) 04/13/23 05:09 Parainfluenza 4 (PCR) Not detected (NOT DETECT) 04/13/23 05:09 RSV Type A (PCR) Not detected (NOT DETECT) 04/13/23 05:09 RSV Type B (PCR) Not detected (NOT DETECT) 04/13/23 05:09 Entero/Rhino (PCR) Not detected (NOT DETECT) 04/13/23 05:09 SARS-CoV-2 (PCR) Not detected (NOT DETECT) 04/13/23 05:09 XR interpretation done by ED provider, pending radiology final review Discharge Plan Discharge Patient Disposition: Admitted As Inpatient Admit Provider: Artie Wilson Clinical Impression: Aspiration pneumonia, Neutropenia, Anemia Condition: Stable Coding Level of Care Code ED Cleat Maker for Christel Fabian
[2023-04-13 05:09] LABS: Alanine Aminotransferase 21 U/L (0-33); Albumin Level 3.4 g/dL (3.5-5.2); Alkaline Phosphatase 100 U/L (35-105); Anion Gap 12.2 (5-19); Aspartate Amino Transferase 16 U/L (0-32); Blood Urea Nitrogen 29 mg/dL (8-23); Calcium 8.9 mg/dL (8.5-10.5); Carbon Dioxide 31 mmol/L (22-29); Chloride 99 mmol/L (98-107); Globulin 3.2 g/dL (1.3-4.6); Glomerular Filtration Rate 125.4 mL/min (90-130); Glucose 112 mg/dL (65-115); Osmolality Calculated 293 mOsm/kg (285-295); Potassium 4.2 mmol/L (3.5-5.1); Sodium 138 mmol/L (136-145); Total Bilirubin 0.5 mg/dL (0.15-1.2); Total Protein 6.6 g/dL (6.6-8.7)
[2023-04-13 05:35] LABS: Neutrophils # 0.51 10^3/uL (1.8-7.7); Slide Review Slide Review Perform
[2023-04-13 05:38] LABS: Lactic Sepsis W/Reflex 0.8 mmol/L (0.5-2.2)
[2023-04-13 05:53] LABS: NT Pro B Type Natriuretic Pept 3589 pg/mL (0-125)
[2023-04-13] MEDS: piperacillin-tazobactam 4.5 GM in sodium chloride 0.9% (plus) 50 ML IV (06:06)
[2023-04-13] MEDS: vancomycin 1,000 MG in sodium chloride 0.9% 250 ML 250 MG IV (06:42)
--- NOTE | 2023-04-13 07:23 | P.HP_ITS ---
Providers/Chief Complaint 2 Admitting Physician: Artie Wilson MD Primary Care Provider: Daysi Lopez MD Chief Complaint: Resp Distress History of Present Illness Liliana Davis is a 62 year old female [facility], carries history of Parkinson's, aspiration, PEG tube feeds bolus 3 times a day, she also remains neutropenic with pancytopenia, EBV serology positive, preserved ejection fraction, recent modified barium swallow study did not show aspiration however she was deemed high risk due to cervical dystonia, she is DNR/DNI, presenting with chief complaint of fever and shortness of breath. On previous admission patient was requiring 2 L of oxygen. Patient is not able to provide history, on my evaluation she was on 2 L oxygen, she was tilted towards the left, saliva is drooling from her mouth Workup in the ER reveals fever, hypoxia, neutropenia, BNP 3500, I requested D- dimer, her viral panel is pending, she received vancomycin and Zosyn Review of Systems 2 General: Reports: ROS unobtainable due to medical condition ENMT: Reports: throat pain Medications/Allergies Home Medications Medication Instructions Recorded Confirmed Last Taken Type cetirizine 10 mg capsule (Zyrtec) 10 mg feeding tube DAILY 05/11/19 03/25/23 01/02/23 History triamcinolone acetonide 55 mcg 1 spray intranasal BID 05/11/19 03/25/23 01/02/23 History nasal spray aerosol (Nasacort) gabapentin 100 mg capsule 100 mg feeding tube TID 08/29/19 03/25/23 01/02/23 History sennosides 8.6 mg tablet (senna) 8.6 mg feeding tube BID PRN 02/01/20 03/25/23 01/02/23 History Constipation tramadol 50 mg tablet 50 mg PO Q8H PRN Pain 02/20/22 03/25/23 01/02/23 History venlafaxine 75 mg tablet 75 mg feeding tube BID 02/20/22 03/25/23 01/02/23 History carbidopa ER 25 mg-levodopa 100 mg See Rx Instructions .Route .COMPLEX 01/02/23 03/25/23 01/02/23 History tablet,extended release docusate sodium 50 mg/5 mL oral 200 mg feeding tube DAILY PRN 01/02/23 03/25/23 01/02/23 History liquid Constipation magnesium oxide 250 mg feeding tube DAILY 01/02/23 03/25/23 01/02/23 History tiotropium bromide 2.5 2 puff inhalation BID 01/02/23 03/25/23 03/25/23 History mcg/actuation mist for inhalation (Spiriva Respimat) acetaminophen 325 mg tablet See Rx Instructions .Route 03/25/23 03/25/23 Unknown History .COMPLEX PRN Pain, Mild bisacodyl 10 mg rectal suppository 10 mg MD DAILY PRN Constipation 03/25/23 03/25/23 Unknown History (Dulcolax (bisacodyl)) carbidopa 25 mg-levodopa 250 mg See Rx Instructions .Route .COMPLEX 03/25/23 03/25/23 Unknown History tablet loperamide 2 mg capsule 2 mg PO Q6H PRN loose stools 03/25/23 03/25/23 Unknown History magnesium hydroxide 400 mg/5 mL 30 ml PO DAILY PRN Constipation 03/25/23 03/25/23 Unknown History oral suspension (Milk of Magnesia) nystatin 100,000 unit/gram topical See Rx Instructions .Route .COMPLEX 03/25/23 03/25/23 Unknown History powder (Nyamyc) omeprazole 20 mg capsule,delayed 40 mg feeding tube DAILY 03/25/23 03/25/23 Unknown History release polyethylene glycol 3350 17 gram 17 g PO DAILY PRN Constipation 03/25/23 03/25/23 Unknown History oral powder packet (Miralax) sodium phosphates 19 gram-7 118 ml MD DAILY PRN Constipation 03/25/23 03/25/23 Unknown History gram/118 mL enema (Fleet Enema) amoxicillin 875 mg-potassium 1 tab PO BID #10 tabs 03/30/23 Unknown Rx clavulanate 125 mg tablet furosemide 20 mg tablet 20 mg feeding tube DAILY PRN edema 03/30/23 03/25/23 01/02/23 Rx #10 tabs Allergies Allergy/AdvReac Type Severity Reaction Status Date / Time aspirin Allergy swelling Verified 01/21/23 13:20 PFSH Acute 2 PFSH: Medical History History of colon polyps Multiple system atrophy Hip fracture, right Overactive bladder HX: benign breast biopsy Urinary retention Voiding dysfunction Mixed stress and urge urinary incontinence Superficial postoperative wound infection Asthma Closed intertrochanteric fracture of right hip Surgical History S/P percutaneous endoscopic gastrostomy (PEG) tube placement History of esophagogastroduodenoscopy (EGD) History of hip surgery History of back surgery Hx of tonsillectomy H/O tubal ligation Family History Mother , at age 46 Cancer malignant melanoma Father , at age 58 Cancer malignant melanoma Social History Smoking and tobacco/nicotine status: never used tobacco/nicotine Alcohol intake: never Substance/Drug Use: never Marital status: Current occupational status: disabled Vitals/I&O/Wt Last Vital Signs Temp 99.6 F 04/13/23 05:42 Pulse 92 04/13/23 05:42 Resp 21 H 04/13/23 05:42 BP 92/48 04/13/23 05:42 Pulse Ox 95 04/13/23 05:42 O2 Del Method Nasal Cannula 04/13/23 05:05 O2 Flow Rate 2.5 04/13/23 05:05 04/12/23 04/13/23 04/13/23 22:59 06:59 14:59 Intake Total 50 / 50 Balance 50 / 50 Weight last 48 hrs Weight 71.577 kg Weight 74.843 kg Physical Exam 2 Narrative: Patient is nonverbal Cervical dystonia, tilted towards left Saliva drooling from her mouth On painful stimuli she moves her extremities PEG tube in place Abdomen nondistended Lower extremity mild edema noted I was not able to examine her sacral area for ulcers S1, S2 Currently on 2 L oxygen with bilateral breath sounds did not appreciate any rhonchi or crackles Data 04/13/23 04:44 04/13/23 04:44 Micro: Microbiology 04/13/23 05:09 Blood Culture - Preliminary Blood SPECIMEN COLLECTED 04/13/23 05:09 Blood Culture - Preliminary Blood SPECIMEN COLLECTED A&P Assessment and plan (1) Dysphagia: (2) S/P percutaneous endoscopic gastrostomy (PEG) tube placement: (3) Mixed stress and urge urinary incontinence: (4) Neutropenia: (5) Parkinson disease: (6) Cervical dystonia: (7) Aspiration pneumonia: Plan Aspiration pneumonia I will keep patient on Zosyn She will receive vancomycin in the ER as well SIRS criteria met with Fever tachypnea tachycardia, neutropenia, will give her septic bolus 2 L She received antibiotics already, no endorgan damage, Monitor for any signs of fluid overload her BNP is 3500 Request D-dimer to rule out thromboembolic phenomenon on previous admission she had elevated troponin as well echo showed preserved ejection fraction Parkinson's: Continue medications through her PEG tube Dysphagia, patient gets bolus feeds 3 times a day Review of records: Previously CMV IgG was positive Patient has remained pancytopenic Previous discharge summary reviewed, patient had similar presentation on previous admission as well [facility] of [facility] DNR/DNI N.p.o. PEG tube feeds to be continued as bolus Head elevation more than 30 degrees May benefit from scopolamine patch because of upper airway secretions Attestations 2 Medical Necessity Statement*: Anticipating more than 2 midnights Diagnoses Dysphagia R13.10 S/P percutaneous endoscopic gastrostomy (PEG) tube placement Z93.1 Mixed stress and urge urinary incontinence N39.46 Neutropenia D70.9 Parkinson disease G20 Cervical dystonia G24.3 Aspiration pneumonia J69.0
--- NOTE | 2023-04-13 07:40 | PC.PHAR ---
Addendum entered by Tracy Reno 04/13/23 13:06: still no fax called again this time no answer Addendum entered by Tracy Reno 04/13/23 10:54: called [facility] again [phone] swati states she will refax Original Note: pt is from [facility] [phone] swati from [facility] states will fax mar and tar
[2023-04-13 07:56] LABS: Adenovirus Not Detected (NOT DETECT); Chlamydia Pneumoniae Not Detected (NOT DETECT); Coronavirus 229E,HKU1,NL63,OC4 Not Detected (NOT DETECT); Human Metapneumovirus Not Detected (NOT DETECT); Human Rhinovirus/Enterovirus Not Detected (NOT DETECT); Influenza A Not Detected (NOT DETECT); Influenza A H1 Not Detected (NOT DETECT); Influenza A H1-2009 Not Detected (NOT DETECT); Influenza A H3 Not Detected (NOT DETECT); Influenza B Not Detected (NOT DETECT); Mycoplasma Pneumoniae Not Detected (NOT DETECT); Parainfluenza Virus Type 1 Not Detected (NOT DETECT); Parainfluenza Virus Type 2 Not Detected (NOT DETECT); Parainfluenza Virus Type 3 Not Detected (NOT DETECT); Parainfluenza Virus Type 4 Not Detected (NOT DETECT); Respiratory Syncytial Virus A Not Detected (NOT DETECT); Respiratory Syncytial Virus B Not Detected (NOT DETECT); SARS-COV-2 Not Detected (NOT DETECT)
[2023-04-13 08:45] LABS: Procalcitonin 0.23 ng/mL (0-0.5)
[2023-04-13] MEDS: enoxaparin 40 mg/0.4 mL Syringe SUBCUT (09:01)
[2023-04-13] MEDS: lactated ringers 1,000 ML 999 ML IV ×2 (09:02→10:23)
[2023-04-13] MEDS: carbidopa-levodopa 25-250mg Tablet 2 EACH PEG-TUBE ×2 (09:12→13:42)
[2023-04-13] MEDS: gabapentin 100 mg Capsule PEG-TUBE ×3 (10:25→21:14)
[2023-04-13] MEDS: carbidopa-levodopa 25-250mg Tablet 1.5 EACH PEG-TUBE (10:25)
[2023-04-13] MEDS: pantoprazole 40 mg SDV IVP ×2 (10:25→18:08)
--- NOTE | 2023-04-13 12:11 | PC.NUTR ---
MD consult for PEG TF bolus recommendations. Recommend Osmolite 1.2 with FWF 60 mls before and after per following regimen: 8am: 480 mls, noon: 480 mls, 8pm: [address] assessment.
[2023-04-13] MEDS: lanolin oint 7 gm 1 APPLIC TOPICAL (13:40)
[2023-04-13] MEDS: piperacillin-tazobactam 3.375 GM in sodium chloride 0.9% (plus) 50 ML IV ×2 (13:42→21:13)
--- NOTE | 2023-04-13 16:41 | XRR_ITS ---
PROCEDURE INFORMATION: Exam: XR Abdomen Exam date and time: 04/13/2023 6:02 PM Age: 62 years old Clinical indication: Device placement; Gi device; Gastrostomy, other; Patient HX: Peg tube confirmation; 30ml gastro/saline mixture through peg TECHNIQUE: Imaging protocol: Radiologic exam of the abdomen. Views: Frontal supine view of the abdomen. 1 View. COMPARISON: CR (CHEST, ) 04/13/2023 4:39 AM FINDINGS: Tubes, catheters and devices: Percutaneous gastric tube tip seen over the stomach with contrast in the stomach, negative for free extravasation. Gastrointestinal tract: Normal. No bowel dilation. Bones/joints: Unremarkable. XR/XR KUB portable [id number] IMPRESSION: Percutaneous gastric tube tip seen over the stomach with contrast in the stomach, negative for free extravasation.
--- NOTE | 2023-04-13 17:15 | PM.MISC ---
Miscellaneous Note Purpose of Documentation: Overnight labs and H&P reviewed. Patient continues to aspirate. States that she had some bites of food on Friday night. Also continues to aspirate airway secretions. Currently appropriately covered with antibiotics. Check MRSA nares PCR. If positive will likely need addition of vancomycin to her current regimen. Additionally patient has been complaining of leaking around the PEG tube site and regurgitation of feeds at every meal. I wonder if this may be related to some degree of gastroparesis versus reflux. Will check PEG tube positioning first by doing KUB with Gastrografin study.
[2023-04-13] MEDS: carbidopa-levodopa 25-100mg Tablet 2 EACH PEG-TUBE (18:08)
[2023-04-14] VITALS (13 sets, daily range): BP systolic 111–143; BP diastolic 68–76; PULSE 73–89; RESP 16–21; TEMP 36.5–37.1; O2SAT 90–98
[2023-04-14 05:22] LABS: Hematocrit 21.1 % (36-47); Mean Corpuscular HGB Conc 31.8 g/dL (30-55); Mean Corpuscular Hemoglobin 34.2 pg (27-33); Mean Corpuscular Volume 107.7 fl (85-98); Mean Platelet Volume 10.1 fL (7.4-10.4); Platelet Count 146 10^3/cmm (157-399); Red Blood Count 1.96 10^6/uL (3.85-5.65); Red Cell Distribution Width 23.2 % (12.1-15.1); White Blood Count 5.87 10^3/uL (3.29-11.43)
[2023-04-14 05:35] LABS: Blood Urea Nitrogen 19 mg/dL (8-23); C Reactive Protein 82.9 mg/L (0.0-4.9); Calcium 8.4 mg/dL (8.5-10.5); Carbon Dioxide 31 mmol/L (22-29); Chloride 103 mmol/L (98-107); Glomerular Filtration Rate 125.4 mL/min (90-130); Glucose 78 mg/dL (65-115); Magnesium 2.3 mg/dL (1.7-2.3); Osmolality Calculated 295 mOsm/kg (285-295); Sodium 142 mmol/L (136-145)
[2023-04-14] MEDS: carbidopa-levodopa 25-250mg Tablet 2 EACH PEG-TUBE ×2 (06:23→13:37)
[2023-04-14] MEDS: piperacillin-tazobactam 3.375 GM in sodium chloride 0.9% (plus) 50 ML IV ×3 (06:24→22:52)
[2023-04-14 06:27] LABS: Slide Review Slide Review Perform
[2023-04-14 06:28] LABS: Absolute Segmented Neutrophil 0.2 10/cmm (1.6-7.1); Eosinophils 0 %; Lymphocytes 29 %; Lymphocytes Absolute 1.7 10^3/cmm (1.2-3.4); Monocytes Absolute 0.9 10^3/cmm (0.1-0.6); Segmented Neutrophils 4 %; Total Cells Counted 100 (0-100)
[2023-04-14 06:30] LABS: Macrocytosis 1+; Microcytosis 1+; Platelet Estimate Decreased (Normal)
[2023-04-14 06:32] LABS: Absolute Neutrophil 0.2 10^3/cmm (1.4-6.5)
[2023-04-14] MEDS: gabapentin 100 mg Capsule PEG-TUBE ×3 (10:27→21:08)
[2023-04-14] MEDS: carbidopa-levodopa 25-250mg Tablet 1.5 EACH PEG-TUBE (10:30)
[2023-04-14 10:43] LABS: Ferritin 998 ng/mL (15-150); Iron 115 ug/dL (37-145)
[2023-04-14] MEDS: ipratropium-albuterol 3 mL Neb INHALATION (10:43)
[2023-04-14] MEDS: pantoprazole 40 mg SDV IVP (11:37)
[2023-04-14 14:47] LABS: Basophils % 0.2 %; Eosinophils % 0.6 %; Hematocrit 22.3 % (36-47); Lymphocytes # 1.6 10^3/uL (0.8-4.8); Mean Corpuscular HGB Conc 32.3 g/dL (30-55); Mean Corpuscular Hemoglobin 34.4 pg (27-33); Mean Corpuscular Volume 106.7 fl (85-98); Mean Platelet Volume 9.8 fL (7.4-10.4); Monocytes # 4.4 10^3/uL (0.2-0.9); Monocytes % 66.9 %; Neutrophils % 6.8 %; Nucleated Red Blood Cells # 0.1 /100WBC; Nucleated Red Blood Cells % 1.2 %; Platelet Count 147 10^3/cmm (157-399); Red Blood Count 2.09 10^6/uL (3.85-5.65); Red Cell Distribution Width 22.9 % (12.1-15.1); White Blood Count 6.52 10^3/uL (3.29-11.43)
[2023-04-14 15:06] LABS: Neutrophils # 0.45 10^3/uL (1.8-7.7)
--- NOTE | 2023-04-14 16:19 | P.PN_ITS ---
Subjective 2 Subjective: patient was seen this morning, she reports fever, cough, no nuasea or vommiting Vitals/I&O/Wt Last Vital Signs Temp 98.2 F 04/14/23 15:50 Pulse 87 04/14/23 15:50 Resp 17 04/14/23 15:50 BP 135/70 04/14/23 15:50 Pulse Ox 90 04/14/23 15:50 O2 Del Method Nasal Cannula 04/14/23 15:50 O2 Flow Rate 2 04/14/23 10:43 04/14/23 04/14/23 04/14/23 06:59 14:59 22:59 Intake Total 100 / 2520 50 / 50 0 / 50 Output Total 300 / 1025 Balance -200 / 1495 50 / 50 0 / 50 Weight last 48 hrs Weight 73.198 kg Weight 71.577 kg Weight 74.843 kg Physical Exam 2 Const: COMMON NORMALS: no acute distress ORIENTATION/CONSCIOUSNESS: Yes awake and Yes oriented to person; not oriented to place Resp: COMMON NORMALS: normal respiratory effort, No retractions, No use of accessory muscles and clear to auscultation bilaterally AUSCULTATION: clear to auscultation bilaterally Cardio: COMMON NORMALS: regular rate, regular rhythm, S1 normal heart sound present and S2 normal heart sound present RATE: regular rate RHYTHM: r egular rhythm HEART SOUNDS: S1 normal heart sound present and S2 normal heart sound present GI: COMMON NORMALS: Normal to inspection, nondistended, normoactive bowel sounds present and non-tender Extremity: COMMON NORMALS: no pedal edema Neuro: SENSORIUM/ORIENTATION: Yes oriented to person and No oriented to place Psych: COMMON NORMALS: mental status grossly normal Data 04/14/23 14:30 04/14/23 04:17 Micro: Microbiology 04/13/23 05:09 Blood Culture - Preliminary Blood NEGATIVE TO DATE 04/13/23 05:09 Blood Culture - Preliminary Blood NEGATIVE TO DATE A&P Assessment and plan (1) Dysphagia: (2) S/P percutaneous endoscopic gastrostomy (PEG) tube placement: (3) Mixed stress and urge urinary incontinence: (4) Neutropenia: (5) Parkinson disease: (6) Cervical dystonia: (7) Aspiration pneumonia: (8) Anemia: Qualifiers: Anemia type: other cause Other causes of anemia: other cause, not classified Qualified Code(s): D64.89 - Other specified anemias Plan Aspiration pneumonia I will keep patient on Zosyn absolute neutropenia -keep under isolation anemia hgb 6.7, transfuse SIRS criteria met with Fever tachypnea tachycardia, neutropenia, will give her septic bolus 2 L She received antibiotics already, no endorgan damage, Monitor for any signs of fluid overload her BNP is 3500 troponin as well echo showed preserved ejection fraction Parkinson's: Continue medications through her PEG tube Dysphagia, patient gets bolus feeds 3 times a day Review of records: Previously CMV IgG was positive Patient has remained pancytopenic [facility] DNR/DNI N.p.o. PEG tube feeds to be continued as bolus Head elevation more than 30 degrees May benefit from scopolamine patch because of upper airway secretions Attestations 2 Medical Necessity Statement*: patient requires hospitalization for aspiration pneumonia, absolute neutropenia, anemia Diagnoses Dysphagia R13.10 S/P percutaneous endoscopic gastrostomy (PEG) tube placement Z93.1 Mixed stress and urge urinary incontinence N39.46 Neutropenia D70.9 Parkinson disease G20 Cervical dystonia G24.3 Aspiration pneumonia J69.0 Anemia due to other cause, not classified D64.89 Anemia type: other cause Other causes of anemia: other cause, not classified
[2023-04-14] MEDS: carbidopa-levodopa 25-100mg Tablet 2 EACH PEG-TUBE (16:46)
[2023-04-14] MEDS: pantoprazole DR 40 mg Tablet PO (16:46)
[2023-04-14 20:01] LABS: Hematocrit 25.3 % (36-47)
[2023-04-15] VITALS (8 sets, daily range): BP systolic 119–171; BP diastolic 66–81; PULSE 74–94; RESP 16–24; TEMP 36.8–37.7; O2SAT 92–98
[2023-04-15] MEDS: carbidopa-levodopa 25-250mg Tablet 2 EACH PEG-TUBE ×2 (05:05→12:58)
[2023-04-15] MEDS: piperacillin-tazobactam 3.375 GM in sodium chloride 0.9% (plus) 50 ML IV ×3 (05:05→21:40)
[2023-04-15 05:10] LABS: Basophils % 0.2 %; Eosinophils % 0.3 %; Hematocrit 24.7 % (36-47); Lymphocytes # 1.5 10^3/uL (0.8-4.8); Lymphocytes % 24.6 %; Mean Corpuscular Hemoglobin 33.8 pg (27-33); Mean Corpuscular Volume 105.6 fl (85-98); Mean Platelet Volume 9.6 fL (7.4-10.4); Monocytes # 4.2 10^3/uL (0.2-0.9); Monocytes % 67.6 %; Neutrophils % 6.6 %; Nucleated Red Blood Cells # 0.1 /100WBC; Nucleated Red Blood Cells % 1.3 %; Platelet Count 143 10^3/cmm (157-399); Red Blood Count 2.34 10^6/uL (3.85-5.65); Red Cell Distribution Width 21.9 % (12.1-15.1); White Blood Count 6.14 10^3/uL (3.29-11.43)
[2023-04-15 05:19] LABS: Add Urine Microscopic? YES; Bilirubin Urine Neg (Negative); Blood Urine Trace (Negative); Glucose Urine UA Norm (Normal); Ketones Urine 1+ (Negative); Leukocyte Esterase Urine Negative (Negative); Nitrate Urine Negative (Negative); Protein Urine Trace (Negative); Specific Gravity, Urine 1.015 (1.005-1.030); Urine Appearance Cloudy (CLEAR); Urine Color Light yellow (Yellow); Urobilinogen Urine Neg (Negative); pH Urine 5 (5-7)
[2023-04-15 05:20] LABS: Add Urine Culture? Yes; Bacteria Urine 2+ /hpf; Squamous Epithelial Cell Urine 0-4 /hpf (0-5); Uric Acid Crystals Urine 25-40 /hpf
[2023-04-15 05:30] LABS: Alanine Aminotransferase < 5 U/L (0-33); Albumin Level 3.4 g/dL (3.5-5.2); Alkaline Phosphatase 94 U/L (35-105); Anion Gap 14.2 (5-19); Aspartate Amino Transferase 12 U/L (0-32); Blood Urea Nitrogen 17 mg/dL (8-23); C Reactive Protein 75.6 mg/L (0.0-4.9); Calcium 8.5 mg/dL (8.5-10.5); Carbon Dioxide 31 mmol/L (22-29); Chloride 101 mmol/L (98-107); Globulin 2.8 g/dL (1.3-4.6); Glomerular Filtration Rate 125.4 mL/min (90-130); Glucose 82 mg/dL (65-115); Magnesium 2.2 mg/dL (1.7-2.3); Osmolality Calculated 295 mOsm/kg (285-295); Phosphorus 3.8 mg/dL (2.5-4.5); Potassium 4.2 mmol/L (3.5-5.1); Sodium 142 mmol/L (136-145); Total Bilirubin 0.7 mg/dL (0.15-1.2); Total Protein 6.2 g/dL (6.6-8.7)
[2023-04-15 05:35] LABS: NT Pro B Type Natriuretic Pept 1529 pg/mL (0-125)
[2023-04-15 05:42] LABS: Slide Review Slide Review Perform
[2023-04-15 05:43] LABS: Neutrophils # 0.41 10^3/uL (1.8-7.7)
[2023-04-15] MEDS: pantoprazole DR 40 mg Tablet PO ×2 (10:13→17:28)
[2023-04-15] MEDS: carbidopa-levodopa 25-250mg Tablet 1.5 EACH PEG-TUBE (10:13)
[2023-04-15] MEDS: gabapentin 100 mg Capsule PEG-TUBE ×3 (10:13→21:40)
[2023-04-15] MEDS: polyethylene glycol 3350 Pkt 17 gm PEG-TUBE (12:58)
[2023-04-15] MEDS: docusate sodium 100 mg Capsule PEG-TUBE ×2 (12:59→17:28)
--- NOTE | 2023-04-15 15:30 | PC.NURSE ---
LAW OFFICE ASSISTANT approached this nurse and stated, Pt is having trouble breathing. This nurse went into room to assess pt. Upon assessment pt was not responding to commands and had blue tinge to lips. Vitals obtained and an O2 level of 33% recorded. O2 mask switched to NC and O2 turned to 9. Respiratory and charge notified and came to assess. Pt O2 slowly raised and pt became to respond to commands and had an O2 of 93%. O2 turned down to 3 by respiratory and pt sating at an O2 of 92%-94% LAW OFFICE ASSISTANT stated, I did take her mask off while I was feeding her. LAW OFFICE ASSISTANT educated on importance of keeping O2 on. Respiratory also educated LAW OFFICE ASSISTANT. Pt currently on 3 L NC with an O2 sat of 94% and breathing is unlabored.
--- NOTE | 2023-04-15 16:04 | P.PN_ITS ---
Subjective 2 Subjective: Patient was seen this morning, denies any fevers, no chills, no nausea, no vomiting, she is quite upset with me as I have kept her on her PEG tube feedings, she tells me that she feels bloated but she has not had a bowel movement yet, she tells me that normally at the correction they let her eat what ever she likes, I discussed with her lightheaded yesterday the morbidity mortality associate with aspiration pneumonia, aspiration pneumonitis, she understands the importance of adhering to the diet that we have prescribed to her, but she would would like clears, after discussing the morbidity and mortality associate with aspiration pneumonia, sepsis, septic shock, she accepted the risk, she was started on clears yesterday I did reinforce this with her today, she still wants to be on clears Vitals/I&O/Wt Last Vital Signs Temp 98.6 F 04/15/23 11:47 Pulse 94 04/15/23 15:59 Resp 24 H 04/15/23 15:59 BP 171/81 04/15/23 15:59 Pulse Ox 93 04/15/23 15:59 O2 Del Method Nasal Cannula 04/15/23 15:59 O2 Flow Rate 2 04/15/23 08:00 04/15/23 04/15/23 04/15/23 06:59 14:59 22:59 Intake Total 70 / 540 125 / 125 Output Total 300 / 700 Balance -230 / -160 125 / 125 Weight last 48 hrs Weight 73.198 kg Weight 73.198 kg Physical Exam 2 Const: COMMON NORMALS: no acute distress and patient oriented x3 Resp: COMMON NORMALS: normal respiratory effort, No retractions, No use of accessory muscles and clear to auscultation bilaterally AUSCULTATION: clear to auscultation bilaterally Cardio: COMMON NORMALS: regular rate, regular rhythm, S1 normal heart sound present and S2 normal heart sound present RATE: regular rate RHYTHM: r egular rhythm HEART SOUNDS: S1 normal heart sound present and S2 normal heart sound present GI: COMMON NORMALS: Normal to inspection, nondistended, normoactive bowel sounds present and non-tender OTHER: PEG tube in place Extremity: COMMON NORMALS: no pedal edema Neuro: COMMON NORMALS: patient oriented x3 Psych: COMMON NORMALS: mental status grossly normal Urinary Catheter Management: Akins: Cath Placed During This Visit: no Reason for Continuing Indwelling Catheter: Chronic Indwelling Urinary Catheter on Admission Data 04/15/23 04:36 04/15/23 04:36 A&P Assessment and plan (1) Dysphagia: (2) S/P percutaneous endoscopic gastrostomy (PEG) tube placement: (3) Mixed stress and urge urinary incontinence: (4) Neutropenia: (5) Parkinson disease: (6) Cervical dystonia: (7) Aspiration pneumonia: (8) Anemia: Qualifiers: Anemia type: other cause Other causes of anemia: other cause, not classified Qualified Code(s): D64.89 - Other specified anemias Plan Aspiration pneumonia on Zosyn absolute neutropenia -keep under isolation anemia hgb 7.9 transfuse SIRS criteria met with Fever tachypnea tachycardia, neutropenia, will give her septic bolus 2 L She received antibiotics already, no endorgan damage, Monitor for any signs of fluid overload her BNP is 3500 troponin as well echo showed preserved ejection fraction Parkinson's: Continue medications through her PEG tube Dysphagia, patient gets bolus feeds 3 times a day Review of records: Previously CMV IgG was positive Patient has remained pancytopenic Resident of correction DNR/DNI clear PEG tube feeds to be continued as bolus Head elevation more than 30 degrees May benefit from scopolamine patch because of upper airway secretions Attestations 2 Medical Necessity Statement*: Patient requires hospitalization for aspiration pneumonia Diagnoses Dysphagia R13.10 S/P percutaneous endoscopic gastrostomy (PEG) tube placement Z93.1 Mixed stress and urge urinary incontinence N39.46 Neutropenia D70.9 Parkinson disease G20 Cervical dystonia G24.3 Aspiration pneumonia J69.0 Anemia due to other cause, not classified D64.89 Anemia type: other cause Other causes of anemia: other cause, not classified
[2023-04-15] MEDS: carbidopa-levodopa 25-100mg Tablet 2 EACH PEG-TUBE (16:28)
--- NOTE | 2023-04-15 16:47 | PC.SLP ---
Attempt UNIT REACTOR OPERATOR visit however patient falling asleep. Will follow patient in the am.
--- NOTE | 2023-04-15 19:46 | XRR_ITS ---
PROCEDURE INFORMATION: Exam: XR Chest Exam date and time: 04/15/2023 9:01 PM Age: 62 years old Clinical indication: Shortness of breath; Additional info: SOB TECHNIQUE: Imaging protocol: Radiologic exam of the chest. Views: 1 view. COMPARISON: CR (CHEST, ) 04/13/2023 4:39 AM FINDINGS: Lungs: Patchy bilateral airspace infiltrates. Pleural spaces: Small bilateral left greater than right pleural effusions. Heart/Mediastinum: Cardiomegaly. Bones/joints: Unremarkable. XR/XR chest 1V portable [id number] IMPRESSION: 1. Small bilateral left greater than right pleural effusions. 2. Cardiomegaly. 3. Patchy bilateral airspace infiltrates.
--- NOTE | 2023-04-15 19:49 | PC.NURSE ---
JOE came to this nurse and reported patient had a low O2 saturation at 83-84%. This nurse switched patients O2 delivery method to non-rebreather and gradually turned patients O2 up to 12L. Patients O2 currently at 93%. This nurse notified and received orders to obtain an ABG, chest xray, and to put her on heated high flow. Respiratory therapy notified.
[2023-04-15 20:03] LABS: ABG PCO2 71.9 mmHg (35-45); ABG PH Result 7.29 (7.35-7.45); Arterial Blood Gas Hematocrit 34.5 % (37-47); Base Excess ABG 6.2 mmol/L (-2.0-2.0); Blood Gas Operator Identificat JB; Blood Gas Sample Site Brachial, right; Blood Gas Sample Type Arterial; HCO3 ABG 34.7 mmol/L (22-26); HGB O2 Sat 94.8 % (95-100); Ionized Calcium Level - ABG 1.2 mmol/L (1.1-1.4); Methemoglobin 0.8 % (0.4-1.5); Oxygen Device NRB; Oxygen Saturation ABG 97.5; PO2 ABG 95.3 mmHg (80.0-100.0); Potassium Level - ABG 4.2 mmol/L (3.5-5.0); Total Hemoglobin 11.3 g/dL (12-16)
--- NOTE | 2023-04-15 20:25 | PC.NURSE ---
After ABG results obtain ordered for patient to be on bipap instead. Respiratory notified.
--- NOTE | 2023-04-15 20:26 | PC.NURSE ---
This nurse attempted to notify patients , Fernando, and he didn't answer. This nurse then contacted patients Daughter Ricarda. Ricarda told this nurse she would contact Fernando to update him and Ricarda told this nurse she would come be with the patient.
[2023-04-16] VITALS (14 sets, daily range): BP systolic 106–135; BP diastolic 60–72; PULSE 69–92; RESP 15–24; TEMP 36.3–37.3; O2SAT 92–99
[2023-04-16 01:03] LABS: Glucose Point of Care 108 mg/dL (70-110)
[2023-04-16 04:57] LABS: Basophils % 0.1 %; Eosinophils % 0.1 %; Hematocrit 23.7 % (36-47); Lymphocytes # 2.3 10^3/uL (0.8-4.8); Lymphocytes % 32.4 %; Mean Corpuscular HGB Conc 32.1 g/dL (30-55); Mean Corpuscular Hemoglobin 33.9 pg (27-33); Mean Corpuscular Volume 105.8 fl (85-98); Mean Platelet Volume 9.4 fL (7.4-10.4); Monocytes # 4.5 10^3/uL (0.2-0.9); Monocytes % 61.5 %; Neutrophils % 5.2 %; Nucleated Red Blood Cells # 0.1 /100WBC; Platelet Count 130 10^3/cmm (157-399); Red Blood Count 2.24 10^6/uL (3.85-5.65); Red Cell Distribution Width 21.6 % (12.1-15.1); White Blood Count 7.23 10^3/uL (3.29-11.43)
[2023-04-16 05:08] LABS: Slide Review Slide Review Perform
[2023-04-16 05:09] LABS: Neutrophils # 0.37 10^3/uL (1.8-7.7)
[2023-04-16 05:17] LABS: Alanine Aminotransferase 9 U/L (0-33); Albumin Level 3.4 g/dL (3.5-5.2); Alkaline Phosphatase 92 U/L (35-105); Aspartate Amino Transferase 11 U/L (0-32); Blood Urea Nitrogen 16 mg/dL (8-23); C Reactive Protein 77.4 mg/L (0.0-4.9); Calcium 8.8 mg/dL (8.5-10.5); Carbon Dioxide 36 mmol/L (22-29); Chloride 103 mmol/L (98-107); Globulin 2.7 g/dL (1.3-4.6); Glomerular Filtration Rate 162.3 mL/min (90-130); Glucose 103 mg/dL (65-115); Magnesium 2.2 mg/dL (1.7-2.3); Osmolality Calculated 301 mOsm/kg (285-295); Phosphorus 2.8 mg/dL (2.5-4.5); Sodium 145 mmol/L (136-145); Total Bilirubin 0.5 mg/dL (0.15-1.2); Total Protein 6.1 g/dL (6.6-8.7)
[2023-04-16 05:24] LABS: Creatinine Clr Calc Pharmacy 151.2255; NT Pro B Type Natriuretic Pept 1165 pg/mL (0-125)
[2023-04-16] MEDS: piperacillin-tazobactam 3.375 GM in sodium chloride 0.9% (plus) 50 ML IV ×3 (05:46→21:22)
[2023-04-16] MEDS: carbidopa-levodopa 25-250mg Tablet 2 EACH PEG-TUBE ×2 (05:46→15:46)
--- NOTE | 2023-04-16 08:26 | XRR_ITS ---
PROCEDURE INFORMATION: Exam: XR Chest Exam date and time: 04/16/2023 9:49 AM Age: 62 years old Clinical indication: Shortness of breath; Prior surgery; Surgery date: 3-7 days post-operative; Surgery type: Peg tube; Additional info: SOB TECHNIQUE: Imaging protocol: Radiologic exam of the chest. Views: 1 view. COMPARISON: CR (CHEST, ) 04/15/2023 9:01 PM FINDINGS: Lungs: Shallow inspiration with low lung volumes. Persistent opacities lungs bilaterally, slightly decreased over left lung base, and probably similar overall over right lung, compared to 04/15/2023. Pleural spaces: Decreased blunting of left lateral costophrenic angle compared to 04/15/2023 suggesting interval decrease or redistribution of pleural fluid. No large right pleural effusion seen. No large or obvious pneumothorax seen visualized portions of the thorax. Heart/Mediastinum: Heart size remains enlarged. Bones/joints: Unremarkable. Soft tissues: Portions of thorax obscured by portions of patient's neck/chin. XR/XR chest 1V portable [id number] IMPRESSION: 1. Persistent opacities lungs bilaterally, slightly decreased over left lung base, and probably similar overall over right lung, compared to 04/15/2023. 2. Decreased blunting of left lateral costophrenic angle compared to 04/15/2023 suggesting interval decrease or redistribution of pleural fluid. No large right pleural effusion seen.
[2023-04-16 08:47] LABS: ABG PCO2 55.9 mmHg (35-45); ABG PH Result 7.43 (7.35-7.45); Arterial Blood Gas Hematocrit 25.2 % (37-47); Base Excess ABG 11.2 mmol/L (-2.0-2.0); Blood Gas Allen Test Pos; Blood Gas Operator Identificat WALCI; Blood Gas Sample Site Radial, left; Blood Gas Sample Type Arterial; HCO3 ABG 36.9 mmol/L (22-26); Oxygen Device BIPAP; PO2 ABG 66.8 mmHg (80.0-100.0); PO2 FiO2 Ratio Arterial Blood 0
[2023-04-16] MEDS: gabapentin 100 mg Capsule PEG-TUBE ×3 (10:00→20:10)
[2023-04-16] MEDS: polyethylene glycol 3350 Pkt 17 gm PEG-TUBE (10:00)
[2023-04-16] MEDS: pantoprazole DR 40 mg Tablet PO ×2 (10:00→18:01)
[2023-04-16] MEDS: docusate sodium 100 mg Capsule PEG-TUBE ×2 (10:00→18:01)
[2023-04-16] MEDS: carbidopa-levodopa 25-250mg Tablet 1.5 EACH PEG-TUBE (10:00)
[2023-04-16] MEDS: FUROsemide 10 mg/mL SDV 4mL 40 MG IVP ×2 (10:47→18:17)
--- NOTE | 2023-04-16 11:10 | CTR_ITS ---
PROCEDURE INFORMATION: Exam: CT Chest Without Contrast; Diagnostic Exam date and time: 04/16/2023 11:06 PM Age: 62 years old Clinical indication: Other: Abd pain; Dyspnea; Patient HX: PT is kyphotic- separate sag and cor images sent to try to straighten out chest. ; Additional info: SOB, abdminal pain TECHNIQUE: Imaging protocol: Diagnostic computed tomography of the chest without contrast. Radiation optimization: All CT scans at this facility use at least one of these dose optimization techniques: automated exposure control; mA and/or kV adjustment per patient size (includes targeted exams where dose is matched to clinical indication); or iterative reconstruction. REPORTING DATA: Count of CT and Cardiac NM exams in prior 12 months: This patient has received [address] and 0 known cardiac nuclear medicine studies in the 12 months prior to the current study. COMPARISON: CT angio chest PE protcl [id number] 03/26/2023 10:44 AM RADIATION DOSE METRICS: Total DLP (mGy-cm): 991.72 FINDINGS: Lungs: There is bilateral patchy ground-glass opacity and alveolar opacification which could represent pulmonary edema versus multifocal pneumonia. There is atelectasis and consolidation dependent portions of both lower lobes. Pleural spaces: There is small right pleural effusion. Heart: Heart is mildly enlarged. There is moderate pericardial effusion measuring up to 12 mm. Pericardial effusion is larger than on 03/26/2023. Coronary arteries: There is no evidence of atherosclerotic coronary artery calcifications. Lymph nodes: Unremarkable. No enlarged lymph nodes. Vasculature: Unremarkable. No aortic aneurysm. Bones/joints: There is moderate kyphosis of the thoracic spine. No acute fracture is identified. There is chronic severe compression fracture of T12 status post vertebroplasty. There are old healed right rib fractures. There is old healed sternal fracture. Soft tissues: Unremarkable. PROCEDURE INFORMATION: Exam: CT Abdomen And Pelvis Without Contrast Exam date and time: 04/16/2023 11:06 PM Age: 62 years old Clinical indication: Other: Abd pain; Dyspnea; Patient HX: PT is kyphotic- separate sag and cor images sent to try to straighten out chest. ; Additional info: SOB, abdminal pain TECHNIQUE: Imaging protocol: Computed tomography of the abdomen and pelvis without contrast. Radiation optimization: All CT scans at this facility use at least one of these dose optimization techniques: automated exposure control; mA and/or kV adjustment per patient size (includes targeted exams where dose is matched to clinical indication); or iterative reconstruction. REPORTING DATA: Count of CT and Cardiac NM exams in prior 12 months: This patient has received [address] and 0 known cardiac nuclear medicine studies in the 12 months prior to the current study. COMPARISON: CR (ABDOMEN, ) 04/13/2023 6:02 PM RADIATION DOSE METRICS: Total DLP (mGy-cm): 991.72 FINDINGS: Limitations: The absence of intravenous contrast lessens the sensitivity of this study for solid organ abnormalities. Study somewhat limited due to streak artifact created by the patient being scanned with the arms at the sides. Tubes, catheters and devices: There is a gastrostomy tube in place in the body of the stomach. Liver: There is no focal abnormality within the liver. Gallbladder and bile ducts: The gallbladder is normal. There is no common bile duct dilation. Pancreas: The pancreas is normal. Spleen: The spleen is normal. There is mild nonspecific splenomegaly. Spleen is 18 cm in length. Adrenal glands: The adrenal glands are normal. Kidneys and ureters: The kidneys are normal. There is no evidence of hydronephrosis. There is no evidence of renal or ureteral calcifications. Stomach and bowel: There is no evidence of colitis/diverticulitis. There is no evidence of intestinal obstruction. Appendix: Not identified Intraperitoneal space: Unremarkable. No free air. No significant fluid collection. Vasculature: The aorta demonstrates mild atherosclerotic calcification. There is no evidence of an abdominal aortic aneurysm. Lymph nodes: No adenopathy Urinary bladder: Urinary bladder is drained by Akins catheter. Reproductive: Unremarkable as visualized. Bones/joints: There is old healed right proximal femoral fracture status post internal fixation with metallic hardware. The lumbar spine demonstrates moderate degenerative changes at multiple levels. There is no evidence of acute fracture. Soft tissues: Unremarkable. CT/[place] [id number] IMPRESSION: 1. Bilateral ground-glass and alveolar opacities worrisome for pulmonary edema versus pneumonitis. 2. Pericardial effusion 3. Bilateral lower lobe atelectasis 4. Small right pleural effusion IMPRESSION: No acute findings in the abdomen or pelvis.
--- NOTE | 2023-04-16 11:53 | PC.SOCIAL ---
IMM Update pg2 of IMM updated and reviewed w/ patient. Copy provided and copy dated, initialed and placed in chart.
[2023-04-16] MEDS: vancomycin 1,250 MG/250 ML PIGGYBACK 250 MG IV (12:46)
[2023-04-16 14:00] LABS: Methicillin-Resist S.aureu PCR DETECTED (NOT DETECTED)
--- NOTE | 2023-04-16 14:58 | PC.SLP ---
Patient on BiPap. 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
--- NOTE | 2023-04-16 15:34 | PC.NUTR ---
reported to be out of Osmolite 1.2. Please continue current TF regimen with Jevity 1.2 as substitution.
--- NOTE | 2023-04-16 17:43 | P.PN_ITS ---
Subjective 2 Subjective: Patient was seen this morning, her family members are at bedside, overnight she had episodes of increasing shortness of breath, requiring BiPAP, currently she is on BiPAP she is alert to person, to place she can follow commands, she denies any shortness of breath, no chest pain, I think that she has had another aspiration event, she also might have some degree of fluid overload of given her Lasix, I discussed with her family members at bedside her risk of aspiration pneumonia, and the morbidity and mortality associated, as they can see, whenever she eats she has a high risk of aspiration in the the morbidity or tablet he associated, the respiratory failure associated,, they advised me at the [place] [facility], she was getting pleasure feeding, they understand that her Parkinson's disease it is advanced, they were allowing her to feed for pleasure, for quality of life, I discussed with him that she is DNR/DNI, my worry is is that she as she continues to aspirate, she will succumb to aspiration pneumonia, aspiration pneumonitis, we will watch her here in the hospital, I have expanded her antibiotic coverage to ordered a CAT scan of the chest, and abdomen, she continues to complain of abdominal distention with the feedings, that she is receiving, will continue BiPAP therapy and monitor, they are agreeable, Vitals/I&O/Wt Last Vital Signs Temp 99.1 F 04/16/23 16:09 Pulse 92 04/16/23 16:36 Resp 20 H 04/16/23 16:09 BP 127/72 04/16/23 16:09 Pulse Ox 98 04/16/23 16:36 O2 Del Method Simple Mask 04/16/23 16:09 O2 Flow Rate 3 04/16/23 16:09 FiO2 80 04/16/23 16:36 04/16/23 04/16/23 04/16/23 06:59 14:59 22:59 Intake Total 50 / 765 880 / 880 Output Total 300 / 600 1999 / 1999 Balance -250 / 165 -1120 / -1120 Weight last 48 hrs Weight 73.198 kg Weight 73.198 kg Physical Exam 2 Const: COMMON NORMALS: no acute distress and patient oriented x3 Resp: COMMON NORMALS: normal respiratory effort, No retractions and No use of accessory muscles AUSCULTATION: crackles and wheezes Cardio: COMMON NORMALS: regular rate, regular rhythm, S1 normal heart sound present and S2 normal heart sound present RATE: regular rate RHYTHM: r egular rhythm HEART SOUNDS: S1 normal heart sound present and S2 normal heart sound present GI: COMMON NORMALS: Normal to inspection, nondistended, normoactive bowel sounds present and non-tender Extremity: NARRATIVE EXTREMITY EXAM: 1+ pitting edema Neuro: COMMON NORMALS: patient oriented x3 Psych: COMMON NORMALS: mental status grossly normal Urinary Catheter Management: Akins: Cath Placed During This Visit: no Reason for Continuing Indwelling Catheter: Chronic Indwelling Urinary Catheter on Admission Data 04/16/23 04:46 04/16/23 04:46 Micro: Microbiology 04/15/23 04:52 Urine Culture - Preliminary Urine,Clean Catch A&P Assessment and plan (1) Dysphagia: (2) S/P percutaneous endoscopic gastrostomy (PEG) tube placement: (3) Mixed stress and urge urinary incontinence: (4) Neutropenia: (5) Parkinson disease: (6) Cervical dystonia: (7) Aspiration pneumonia: (8) Anemia: Qualifiers: Anemia type: other cause Other causes of anemia: other cause, not classified Qualified Code(s): D64.89 - Other specified anemias (9) Acute hypoxic respiratory failure: Plan Acute hypoxic respiratory failure ? Monitor on MedSurg, ? Continue Zosyn, add vancomycin, ? Continue BiPAP therapy, ? Monitor respiratory status closely, ? CT of the chest, ? 2 doses of IV Lasix today, ? Will consider steroids based on clinical progress Aspiration pneumonia on Zosyn absolute neutropenia -keep under isolation anemia hgb 7.6, status post 1 unit PRBC during this hospitalization ? Ferritin 998 ?iron 158 SIRS criteria met with Fever tachypnea tachycardia, neutropenia, will give her septic bolus 2 L She received antibiotics already, no endorgan damage, troponin as well echo showed preserved ejection fraction Parkinson's: Continue medications through her PEG tube Dysphagia, patient gets bolus feeds 3 times a day Review of records: Previously CMV IgG was positive Patient has remained pancytopenic Resident of [facility] DNR/DNI clear PEG tube feeds to be continued as bolus Head elevation more than 30 degrees May benefit from scopolamine patch because of upper airway secretions Attestations 2 Medical Necessity Statement*: Patient requires hospitalization for acute hypoxic respiratory failure, secondary to aspiration pneumonia Diagnoses Dysphagia R13.10 S/P percutaneous endoscopic gastrostomy (PEG) tube placement Z93.1 Mixed stress and urge urinary incontinence N39.46 Neutropenia D70.9 Parkinson disease G20 Cervical dystonia G24.3 Aspiration pneumonia J69.0 Anemia due to other cause, not classified D64.89 Anemia type: other cause Other causes of anemia: other cause, not classified Acute hypoxic respiratory failure J96.01
[2023-04-16] MEDS: lactulose oral liq 20 gm/30 mL UDC PEG-TUBE (18:01)
[2023-04-16] MEDS: carbidopa-levodopa 25-100mg Tablet 2 EACH PEG-TUBE (18:01)
[2023-04-17] VITALS (17 sets, daily range): BP systolic 112–166; BP diastolic 67–87; PULSE 75–90; RESP 14–28; TEMP 36.3–37.7; O2SAT 91–100
[2023-04-17] MEDS: vancomycin 1,250 MG/250 ML PIGGYBACK 250 MG IV ×3 (00:09→23:58)
[2023-04-17 05:03] LABS: Eosinophils % 0.3 %; Hematocrit 26.5 % (36-47); Lymphocytes # 2.4 10^3/uL (0.8-4.8); Mean Corpuscular HGB Conc 32.1 g/dL (30-55); Mean Corpuscular Hemoglobin 34.1 pg (27-33); Mean Corpuscular Volume 106.4 fl (85-98); Mean Platelet Volume 9.1 fL (7.4-10.4); Monocytes # 4.3 10^3/uL (0.2-0.9); Monocytes % 60.7 %; Neutrophils % 5.3 %; Nucleated Red Blood Cells # 0.1 /100WBC; Nucleated Red Blood Cells % 0.8 %; Platelet Count 119 10^3/cmm (157-399); Red Blood Count 2.49 10^6/uL (3.85-5.65); Red Cell Distribution Width 21.2 % (12.1-15.1); White Blood Count 7.13 10^3/uL (3.29-11.43)
[2023-04-17] MEDS: piperacillin-tazobactam 3.375 GM in sodium chloride 0.9% (plus) 50 ML IV (05:18)
[2023-04-17 05:21] LABS: Slide Review Slide Review Perform
[2023-04-17 05:22] LABS: Neutrophils # 0.38 10^3/uL (1.8-7.7)
[2023-04-17 05:23] LABS: Alanine Aminotransferase < 5 U/L (0-33); Albumin Level 3.5 g/dL (3.5-5.2); Alkaline Phosphatase 88 U/L (35-105); Anion Gap 9.5 (5-19); Aspartate Amino Transferase 11 U/L (0-32); Blood Urea Nitrogen 11 mg/dL (8-23); C Reactive Protein 57.6 mg/L (0.0-4.9); Calcium 8.6 mg/dL (8.5-10.5); Carbon Dioxide 39 mmol/L (22-29); Chloride 102 mmol/L (98-107); Globulin 2.8 g/dL (1.3-4.6); Glomerular Filtration Rate 125.4 mL/min (90-130); Glucose 109 mg/dL (65-115); Magnesium 1.7 mg/dL (1.7-2.3); Osmolality Calculated 304 mOsm/kg (285-295); Phosphorus 3.8 mg/dL (2.5-4.5); Potassium 3.5 mmol/L (3.5-5.1); Sodium 147 mmol/L (136-145); Total Bilirubin 0.6 mg/dL (0.15-1.2); Total Protein 6.3 g/dL (6.6-8.7)
[2023-04-17 05:28] LABS: NT Pro B Type Natriuretic Pept 564 pg/mL (0-125); Procalcitonin 0.17 ng/mL (0-0.5)
[2023-04-17] MEDS: carbidopa-levodopa 25-250mg Tablet 2 EACH PEG-TUBE ×2 (05:48→13:46)
[2023-04-17] MEDS: ipratropium-albuterol 3 mL Neb INHALATION ×2 (09:38→21:17)
[2023-04-17] MEDS: pantoprazole DR 40 mg Tablet PO ×2 (10:07→17:22)
[2023-04-17] MEDS: docusate sodium 100 mg Capsule PEG-TUBE ×2 (10:07→17:22)
[2023-04-17] MEDS: carbidopa-levodopa 25-250mg Tablet 1.5 EACH PEG-TUBE (10:08)
[2023-04-17] MEDS: gabapentin 100 mg Capsule PEG-TUBE ×3 (10:08→20:33)
[2023-04-17] MEDS: methylPREDNISolone sod succ 125 mg/2 mL INJ IVP (12:33)
[2023-04-17] MEDS: meropenem 1,000 MG in sodium chloride 0.9% (plus) 50 ML 100 MG IV ×2 (13:46→20:29)
--- NOTE | 2023-04-17 15:25 | PM.PN ---
Subjective Subjective: Patient was seen this morning, she is alert to person, not to place, not to time, she can follow commands such as squeezing my fingers, family members at bedside, currently she is on 70% FiO2 overnight she was on 100% FiO2, currently having evidence of mild to moderate respiratory distress intercostal retractions, nasal flaring, tachypnea, tachycardia, I discussed with family members at bedside, the patient likely has acute hypoxic respiratory failure with her sudden increase in oxygen requirements likely acute respiratory distress syndrome within insult likely being aspiration pneumonia aspiration pneumonitis, as she is a DNR/DNI and she does not want to have aggressive intervention the only option would be to give her time on BiPAP, and steroid therapy and antibiotics and see how she does however my concern would be if her oxygen requirements continue to increase it if she starts to clinically deteriorate what her options at that point. I was able to speak to Rody about this, and I asked her if she were to start to suffer and she were to start to struggle to breathe, would we want to stop all these interventions and just make her comfortable she tells me yes, this was a part of all of her family members, . I also had a meeting with family outside, they confirmed that they know that her Parkinson's disease is quite advanced, and they have do that this time was coming a long time ago, they are prepared, they want to see how she does with antibiotics steroids and BiPAP therapy they know that at this point she has a high risk of morbidity and mortality, her prognosis is poor, status is critical. In most cases patient should would be on the ventilator at this point however she is DNR/DNI. However if her condition starts to deteriorate, or she starts to suffer or she is in pain and they are agreeable to make her fully comfortable and pursuing comfort care hospice. For now I have also with agreement and family numbers put on morphine, Ativan, atropine to help with air hunger to help with agitation and anxiety to be used as needed. I advised that her status is critical, prognosis is poor if any family wears 1 to see her their goodbyes, they should come and see her, as I feel that in the next 24 hours she has a high risk of mortality they voiced understanding, all questions answered, shared decision making, agreed to proceed with plan Vitals/I&O/Wt Last Vital Signs Temp 99.8 F H 04/17/23 11:00 Pulse 83 04/17/23 12:04 Resp 21 H 04/17/23 11:00 BP 117/73 04/17/23 11:00 Pulse Ox 97 04/17/23 12:04 O2 Del Method BiPAP 04/17/23 11:00 O2 Flow Rate 3 04/17/23 09:12 FiO2 70 04/17/23 12:04 04/17/23 04/17/23 04/17/23 06:59 14:59 22:59 Intake Total 300.000 / 1230.000 350 / 350 Output Total 1400 / 3400 Balance -1100.000 / -2170.000 350 / 350 Weight last 48 hrs Weight 73.198 kg Weight 73.198 kg Physical Exam Const: COMMON NORMALS: no acute distress ORIENTATION/CONSCIOUSNESS: Yes awake, Yes oriented to person and Yes confused; not oriented to place and not oriented to time Resp: EFFORT & INSPECTION: Yes abnormal respiratory pattern, Yes tachypneic, Yes respiratory distress and Yes retractions AUSCULTATION: crackles and wheezes Cardio: COMMON NORMALS: regular rhythm, S1 normal heart sound present and S2 normal heart sound present RATE: tachycardic RHYTHM: regular rhythm HEART SOUNDS: S1 normal heart sound present and S2 normal heart sound present GI: COMMON NORMALS: Normal to inspection, nondistended, normoactive bowel sounds present and non-tender Extremity: COMMON NORMALS: no pedal edema Neuro: SENSORIUM/ORIENTATION: Yes oriented to person, No oriented to place and No oriented to time Urinary Catheter Management: Akins: Cath Placed During This Visit: no Reason for Continuing Indwelling Catheter: Chronic Indwelling Urinary Catheter on Admission Data 04/17/23 04:53 04/17/23 04:53 Micro: Microbiology 04/15/23 04:52 Urine Culture - Preliminary Urine,Clean Catch Yeast species A&P Assessment and plan (1) Dysphagia: (2) S/P percutaneous endoscopic gastrostomy (PEG) tube placement: (3) Mixed stress and urge urinary incontinence: (4) Neutropenia: (5) Parkinson disease: (6) Cervical dystonia: (7) Aspiration pneumonia: (8) Anemia: Qualifiers: Anemia type: other cause Other causes of anemia: other cause, not classified Qualified Code(s): D64.89 - Other specified anemias (9) Acute hypoxic respiratory failure: (10) ARDS (adult respiratory distress syndrome): Plan Acute hypoxic respiratory failure, with evidence of acute respiratory distress syndrome, likely sec to aspiration pneumonia ? With underlying advanced Parkinson's disease, PEG tube in place, evidence of muscle wasting, required multiple hospitalizations for aspiration pneumonia, pneumonitis ? DNR/DNI ? Monitor on MedSurg, ? Continue meropenem,vancomycin, ? Continue BiPAP therapy, ? Continue IV steroids ? Monitor respiratory status closely, ? Prognosis is poor, status is critical, ? If patient's condition starts to worsen, she starts to suffer, will proceed with full comfort care as per patient's family request and patient's request, ? Patient does have morphine, Ativan, atropine in place in case for air hunger, agitation, secretions Aspiration pneumonia on Zosyn absolute neutropenia -keep under isolation anemia hgb 8.5, status post 1 unit PRBC during this hospitalization ? Ferritin 998 ?iron 158 SIRS criteria met with Fever tachypnea tachycardia, neutropenia, will give her septic bolus 2 L She received antibiotics already, no endorgan damage, troponin as well echo showed preserved ejection fraction Parkinson's: Continue medications through her PEG tube Dysphagia, patient gets bolus feeds 3 times a day Review of records: Previously CMV IgG was positive Patient has remained pancytopenic Resident of [place] [facility] DNR/DNI clear PEG tube feeds to be continued as bolus Head elevation more than 30 degrees May benefit from scopolamine patch because of upper airway secretions Attestations Medical Necessity Statement*: Patient requires hospitalization for acute respiratory distress syndrome, acute hypoxic respiratory failure, aspiration pneumonia, currently critically ill Diagnoses Dysphagia R13.10 S/P percutaneous endoscopic gastrostomy (PEG) tube placement Z93.1 Mixed stress and urge urinary incontinence N39.46 Neutropenia D70.9 Parkinson disease G20 Cervical dystonia G24.3 Aspiration pneumonia J69.0 Anemia due to other cause, not classified D64.89 Anemia type: other cause Other causes of anemia: other cause, not classified Acute hypoxic respiratory failure J96.01 ARDS (adult respiratory distress syndrome) J80
[2023-04-17] MEDS: carbidopa-levodopa 25-100mg Tablet 2 EACH PEG-TUBE (17:22)
[2023-04-17] MEDS: methylPREDNISolone sod succ 125 mg/2 mL INJ 60 MG IVP (21:01)
[2023-04-18] VITALS (9 sets, daily range): BP systolic 106–172; BP diastolic 68–78; PULSE 68–92; RESP 16–26; TEMP 36.4–36.6; O2SAT 91–99
[2023-04-18] MEDS: meropenem 1,000 MG in sodium chloride 0.9% (plus) 50 ML 100 MG IV (03:36)
[2023-04-18 04:42] LABS: ABG PCO2 64.5 mmHg (35-45); ABG PH Result 7.41 (7.35-7.45); Arterial Blood Gas Hematocrit 27.6 % (37-47); Base Excess ABG 14.3 mmol/L (-2.0-2.0); Blood Gas Allen Test Pos; Blood Gas Sample Site Radial, left; Blood Gas Sample Type Arterial; Oxygen Device BIPAP; PO2 FiO2 Ratio Arterial Blood 0
[2023-04-18 05:24] LABS: Hematocrit 26.2 % (36-47); Mean Corpuscular HGB Conc 32.1 g/dL (30-55); Mean Corpuscular Hemoglobin 33.3 pg (27-33); Mean Platelet Volume 9.6 fL (7.4-10.4); Platelet Count 136 10^3/cmm (157-399); Red Blood Count 2.52 10^6/uL (3.85-5.65); Red Cell Distribution Width 20.3 % (12.1-15.1); White Blood Count 4.46 10^3/uL (3.29-11.43)
[2023-04-18] MEDS: carbidopa-levodopa 25-250mg Tablet 2 EACH PEG-TUBE (05:29)
[2023-04-18] MEDS: methylPREDNISolone sod succ 125 mg/2 mL INJ 60 MG IVP (05:32)
[2023-04-18 05:46] LABS: Alanine Aminotransferase 9 U/L (0-33); Albumin Level 3.7 g/dL (3.5-5.2); Alkaline Phosphatase 85 U/L (35-105); Anion Gap 13.3 (5-19); Aspartate Amino Transferase 12 U/L (0-32); Blood Urea Nitrogen 21 mg/dL (8-23); C Reactive Protein 56.1 mg/L (0.0-4.9); Calcium 9.2 mg/dL (8.5-10.5); Carbon Dioxide 38 mmol/L (22-29); Chloride 101 mmol/L (98-107); Creatinine Clr Calc Pharmacy 151.2255; Glomerular Filtration Rate 162.3 mL/min (90-130); Glucose 138 mg/dL (65-115); Magnesium 2.1 mg/dL (1.7-2.3); Osmolality Calculated 311 mOsm/kg (285-295); Phosphorus 3.6 mg/dL (2.5-4.5); Potassium 4.3 mmol/L (3.5-5.1); Sodium 148 mmol/L (136-145); Total Bilirubin 0.6 mg/dL (0.15-1.2); Total Protein 6.7 g/dL (6.6-8.7)
[2023-04-18 05:48] LABS: Lactate (Lactic Acid level) 0.9 mmol/L (0.5-2.2)
[2023-04-18 05:50] LABS: Slide Review Slide Review Perform
[2023-04-18 05:51] LABS: Eosinophils 0 %; Total Cells Counted 100 (0-100)
[2023-04-18 05:52] LABS: Absolute Segmented Neutrophil 0.3 10/cmm (1.6-7.1); Lymphocytes 51 %; Lymphocytes Absolute 2.8 10^3/cmm (1.2-3.4); Platelet Estimate Decreased (Normal); Segmented Neutrophils 7 %; Smudge Cells Trace
[2023-04-18 05:53] LABS: NT Pro B Type Natriuretic Pept 848 pg/mL (0-125)
--- NOTE | 2023-04-18 07:00 | XRR_ITS ---
PROCEDURE INFORMATION: Exam: XR Chest Exam date and time: 04/18/2023 8:02 AM Age: 62 years old Clinical indication: Shortness of breath; Additional info: SOB TECHNIQUE: Imaging protocol: Radiologic exam of the chest. Views: 1 view. COMPARISON: [place] [id number] 04/16/2023 11:06 PM FINDINGS: Lungs: Bibasilar hypoventilatory changes. The scattered pulmonary infiltrates are slightly improved. Pleural spaces: Unremarkable. No pleural effusion. No pneumothorax. Heart/Mediastinum: See Vasculature finding. Vasculature: Mild cardiomegaly and uncoiling of the thoracic aorta. Bones/joints: Deformity from healed rib fractures. Other findings: Suboptimal positioning due to patient condition. XR/XR chest 1V portable [id number] IMPRESSION: Slightly improving infiltrates.
[2023-04-18] MEDS: polyethylene glycol 3350 Pkt 17 gm PEG-TUBE (09:30)
[2023-04-18] MEDS: gabapentin 100 mg Capsule PEG-TUBE (09:30)
[2023-04-18] MEDS: carbidopa-levodopa 25-250mg Tablet 1.5 EACH PEG-TUBE (09:30)
[2023-04-18] MEDS: pantoprazole DR 40 mg Tablet PO (09:30)
[2023-04-18] MEDS: docusate sodium 100 mg Capsule PEG-TUBE (09:30)
--- NOTE | 2023-04-18 11:16 | PC.SOCIAL ---
IMM Update pg 2 of IMM updated and reviewed w/ patient's family. Copy provided and copy dated, initialed and placed in chart.
[2023-04-18 11:44] LABS: Vancomycin Trough 9.1 ug/mL (10-15)
[2023-04-18] MEDS: morphine 4 mg/mL SDV 1 mL 1 MG IVP (13:11)
--- NOTE | 2023-04-18 13:32 | PC.SLP ---
No VISUAL STYLIST provided today
--- NOTE | 2023-04-18 13:34 | PC.NURSE ---
Family at bedside. Pt is requesting BiPap off and morphine for comfort. Notified Resp Therapy and Dr. Templeton.
--- NOTE | 2023-04-18 15:14 | PC.NURSE ---
Family refuses home medications d/t pt status. Family would just like comfort medications at this time.
--- NOTE | 2023-04-18 18:02 | P.PN_ITS ---
Subjective 2 Subjective: - Patient was seen this morning, ? She is less responsive, she tries to mouth words on the BiPAP, but I am not able to understand them, she also tried to point at letters on a board, to spell out words however they do not make any sense, ? She looks like she is in mild to moderate respiratory distress, intercostal retractions, suprasternal retractions, nasal flaring, she is on 40% FiO2 she remains BiPAP dependent, ? She looks like she is giving up per se, she is has evidence of respiratory muscle fatigue ? I had a detailed discussion with the patient's family about goals of care, including not limited to continued medical interventions giving her time versus switching to comfort care easing her pain easing her suffering ? Patient's brother was at bedside, she wanted to wait until her brother came from [place] now he is at bedside, he was talking with Rody, ? I had a family meeting with patient's brother, patient's son and daughter, patient's ? They understand that patient has severe Parkinson's disease at baseline, she was debilitated bedbound at baseline, she had a poor quality of life at baseline, now she is here with acute hypoxic respiratory failure, remains BiPAP dependent, is becoming less responsive, I discussed her overall goals of care patient's family wants to give their final goodbyes, and after that they want her to stop using BiPAP and for us to just ease her pain and ease her suffering and allow her to pass away comfortably, they want us to stop all medications ? After discussing the risk and benefits of comfort care they voiced understanding, all questions answered, proceed with comfort care As above all they do not want her to suffer, they are worried about her suffering once the BiPAP is removed, we discussed comfort care in detail morphine, Ativan, atropine to ease her breathing, ease her air hungry, they understood ? After discussing the risk and benefits of all options, they voiced understanding, all questions, shared decision making, agreed to proceed with comfort care, patient's family tell me that this is what she would have wanted, for many years, she was ready to , they knew that this was inevitable -Medical interventions were continued un til family were all at bedside had given their final goodbyes, ? Roughly the afternoon, patient proceeded to full comfort care, BiPAP was stopped, Vitals/I&O/Wt Last Vital Signs Temp 97.8 F 04/18/23 08:10 Pulse 88 04/18/23 12:00 Resp 17 04/18/23 10:37 BP 172/78 04/18/23 08:10 Pulse Ox 92 04/18/23 12:00 O2 Del Method BiPAP 04/18/23 10:37 O2 Flow Rate 3 04/17/23 09:12 FiO2 40 04/18/23 12:00 04/18/23 04/18/23 04/18/23 06:59 14:59 22:59 Intake Total 300 / 700 Output Total 200 / 400 Balance 100 / 300 Weight last 48 hrs Weight 68.946 kg Weight 73.198 kg Physical Exam 2 Const: COMMON NORMALS: no acute distress NUTRITIONAL APPEARANCE: cachectic ORIENTATION/CONSCIOUSNESS: Yes awake and Yes confused; not oriented to person, not oriented to place and not oriented to time Resp: EFFORT & INSPECTION: Yes abnormal respiratory pattern, Yes tachypneic and Yes respiratory distress AUSCULTATION: crackles and wheezes Cardio: COMMON NORMALS: regular rhythm, S1 normal heart sound present and S2 normal heart sound present RATE: tachycardic RHYTHM: regular rhythm H EART SOUNDS: S1 normal heart sound present and S2 normal heart sound present GI: COMMON NORMALS: Normal to inspection, nondistended, normoactive bowel sounds present, Soft to palpation and non-tender PALPATION: Yes Soft to palpation Extremity: COMMON NORMALS: no pedal edema Neuro: SENSORIUM/ORIENTATION: No oriented to person, No oriented to place and No oriented to time Urinary Catheter Management: Akins: Cath Placed During This Visit: no Reason for Continuing Indwelling Catheter: Chronic Indwelling Urinary Catheter on Admission Data 04/18/23 04:58 04/18/23 04:58 Micro: Microbiology 04/13/23 05:09 Blood Culture - Final Blood NO GROWTH AFTER 5 DAYS 04/13/23 05:09 Blood Culture - Final Blood NO GROWTH AFTER 5 DAYS A&P Assessment and plan (1) Dysphagia: (2) S/P percutaneous endoscopic gastrostomy (PEG) tube placement: (3) Mixed stress and urge urinary incontinence: (4) Neutropenia: (5) Parkinson disease: (6) Cervical dystonia: (7) Aspiration pneumonia: (8) Anemia: Qualifiers: Anemia type: other cause Other causes of anemia: other cause, not classified Qualified Code(s): D64.89 - Other specified anemias (9) Acute hypoxic respiratory failure: (10) ARDS (adult respiratory distress syndrome): Plan DNR/DNI, proceeding with comfort care Acute hypoxic respiratory failure, with evidence of acute respiratory distress syndrome, likely sec to aspiration pneumonia ? With underlying advanced Parkinson's disease, PEG tube in place, evidence of muscle wasting, required multiple hospitalizations for aspiration pneumonia, pneumonitis ? DNR/DNI ? Monitor on MedSurg, ? Continue meropenem,vancomycin, ? Continue BiPAP therapy, ? Continue IV steroids ? Monitor respiratory status closely, ? Prognosis is poor, status is critical, ? If patient's condition starts to worsen, she starts to suffer, will proceed with full comfort care as per patient's family request and patient's request, ? Patient does have morphine, Ativan, atropine in place in case for air hunger, agitation, secretions Aspiration pneumonia on Zosyn absolute neutropenia -keep under isolation anemia hgb 8.5, status post 1 unit PRBC during this hospitalization ? Ferritin 998 ?iron 158 SIRS criteria met with Fever tachypnea tachycardia, neutropenia, will give her septic bolus 2 L She received antibiotics already, no endorgan damage, troponin as well echo showed preserved ejection fraction Parkinson's: Continue medications through her PEG tube Dysphagia, patient gets bolus feeds 3 times a day Review of records: Previously CMV IgG was positive Patient has remained pancytopenic Resident of fci DNR/DNI clear PEG tube feeds to be continued as bolus Head elevation more than 30 degrees May benefit from scopolamine patch because of upper airway secretions Attestations 2 Medical Necessity Statement*: Patient is on comfort care, requires inpatient comfort care for acute hypoxic respiratory failure secondary aspiration pneumonia, acute respiratory distress syndrome with underlying severe Parkinson's disease, bedbound status, underlying dysphagia Diagnoses Dysphagia R13.10 S/P percutaneous endoscopic gastrostomy (PEG) tube placement Z93.1 Mixed stress and urge urinary incontinence N39.46 Neutropenia D70.9 Parkinson disease G20 Cervical dystonia G24.3 Aspiration pneumonia J69.0 Anemia due to other cause, not classified D64.89 Anemia type: other cause Other causes of anemia: other cause, not classified Acute hypoxic respiratory failure J96.01 ARDS (adult respiratory distress syndrome) J80
[2023-04-19] VITALS: BP 111/67; PULSE 69; RESP 16; TEMP 36.4; O2SAT 100
[2023-04-19 04:00] VITALS: BP 104/62; PULSE 77; RESP 18; TEMP 36.6; O2SAT 98
[2023-04-19 05:27] VITALS: RESP 22
[2023-04-19] MEDS: morphine 4 mg/mL SDV 1 mL 1 MG IVP (05:27)
[2023-04-19] MEDS: morphine 10 mg/0.5 mL oral liq UD SUBLINGUAL ×2 (10:20→14:20)
--- NOTE | 2023-04-19 12:40 | PM.PN ---
Subjective Subjective: Patient was seen this morning, patient's brother is at bedside, she awakens, looks fatigue, malaise, no evidence of respiratory distress, does have evidence of cyanosis around the lips, is on 2 L, she does not follow commands, falls back asleep, Vitals/I&O/Wt Last Vital Signs Temp 97.9 F 04/19/23 04:00 Pulse 77 04/19/23 04:00 Resp 22 H 04/19/23 05:27 BP 104/62 04/19/23 04:00 Pulse Ox 98 04/19/23 04:00 O2 Del Method Nasal Cannula 04/19/23 04:00 O2 Flow Rate 2 04/18/23 20:00 FiO2 40 04/18/23 12:00 04/18/23 04/19/23 04/19/23 22:59 06:59 14:59 Intake Total 0 / 0 Output Total 450 / 450 Balance -450 / -450 0 / 0 Weight last 48 hrs Weight 67.84 kg Weight 68.946 kg Physical Exam Const: COMMON NORMALS: no acute distress Resp: COMMON NORMALS: normal respiratory effort, No retractions, No use of accessory muscles and clear to auscultation bilaterally AUSCULTATION: clear to auscultation bilaterally Cardio: COMMON NORMALS: regular rate, regular rhythm, S1 normal heart sound present and S2 normal heart sound present RATE: regular rate RHYTHM: regular rhythm HEART SOUNDS: S1 normal heart sound present and S2 normal heart sound present GI: COMMON NORMALS: Normal to inspection, nondistended, normoactive bowel sounds present and non-tender Urinary Catheter Management: Akins: Cath Placed During This Visit: no Reason for Continuing Indwelling Catheter: Hospice/Comfort/Palliative Care Data 04/18/23 04:58 04/18/23 04:58 A&P Assessment and plan (1) Need for comfort care: (2) Dysphagia: (3) S/P percutaneous endoscopic gastrostomy (PEG) tube placement: (4) Mixed stress and urge urinary incontinence: (5) Neutropenia: (6) Parkinson disease: (7) Cervical dystonia: (8) Aspiration pneumonia: (9) Anemia: Qualifiers: Anemia type: other cause Other causes of anemia: other cause, not classified Qualified Code(s): D64.89 - Other specified anemias (10) Acute hypoxic respiratory failure: (11) ARDS (adult respiratory distress syndrome): Plan Comfort care, for recurrent aspiration pneumonia, respiratory failure, underlying severe Parkinson disease, underlying severe debility, comfort care orders Acute hypoxic respiratory failure, with evidence of acute respiratory distress syndrome, likely sec to aspiration pneumonia ? With underlying advanced Parkinson's disease, PEG tube in place, evidence of muscle wasting, required multiple hospitalizations for aspiration pneumonia, pneumonitis ? DNR/DNI ? Monitor on MedSurg, ? Continue meropenem,vancomycin, ? Continue BiPAP therapy, ? Continue IV steroids ? Monitor respiratory status closely, ? Prognosis is poor, status is critical, ? If patient's condition starts to worsen, she starts to suffer, will proceed with full comfort care as per patient's family request and patient's request, ? Patient does have morphine, Ativan, atropine in place in case for air hunger, agitation, secretions Aspiration pneumonia on Zosyn absolute neutropenia -keep under isolation anemia hgb 8.5, status post 1 unit PRBC during this hospitalization ? Ferritin 998 ?iron 158 SIRS criteria met with Fever tachypnea tachycardia, neutropenia, will give her septic bolus 2 L She received antibiotics already, no endorgan damage, troponin as well echo showed preserved ejection fraction Parkinson's: Continue medications through her PEG tube Dysphagia, patient gets bolus feeds 3 times a day Review of records: Previously CMV IgG was positive Patient has remained pancytopenic Resident of skilled nursing DNR/DNI clear PEG tube feeds to be continued as bolus Head elevation more than 30 degrees May benefit from scopolamine patch because of upper airway secretions Attestations Medical Necessity Statement*: Patient requires hospitalization for comfort care/hospice Diagnoses Need for comfort care Dysphagia R13.10 S/P percutaneous endoscopic gastrostomy (PEG) tube placement Z93.1 Mixed stress and urge urinary incontinence N39.46 Neutropenia D70.9 Parkinson disease G20 Cervical dystonia G24.3 Aspiration pneumonia J69.0 Anemia due to other cause, not classified D64.89 Anemia type: other cause Other causes of anemia: other cause, not classified Acute hypoxic respiratory failure J96.01 ARDS (adult respiratory distress syndrome) J80
--- NOTE | 2023-04-19 15:07 | PC.NURSE ---
at approx 1515 patient family requested for patient to be taken off of O2. family stated that they felt like the oxygen was a form of life support, and opted to take it off. Patient passed at 1434. Dr. Templeton notified.
--- NOTE | 2023-04-19 15:31 | PC.NURSE ---
iv removed. rivas catheter remove. post mortem care performed.
--- NOTE | 2023-04-19 17:40 | PC.NURSE ---
Abeba from [facility] called and stated patient was not a candidate for donation. Violeta from [facility] called and stated patient was not a candidate for donation and the body can be released.
--- NOTE | 2023-04-19 17:44 | P.DES_ITS ---
Discharge Providers DDS Date of Admission: 04/13/23 06:07 Date Summary Completed: 04/23/23 Attending Provider at Admission: Artie Wilson MD Attending Provider at Discharge: Rene Templeton MD Primary Care Provider: Daysi Lopez MD DS Diagnoses Hospital Diagnoses (1) Need for comfort care: (2) Dysphagia: (3) S/P percutaneous endoscopic gastrostomy (PEG) tube placement: (4) Mixed stress and urge urinary incontinence: (5) Neutropenia: (6) Parkinson disease: (7) Cervical dystonia: (8) Aspiration pneumonia: (9) Anemia: Qualifiers: Anemia type: other cause Other causes of anemia: other cause, not classified Qualified Code(s): D64.89 - Other specified anemias Permanent Problem Comments: Postop. Baseline hemoglobin 12.5 (10) Acute hypoxic respiratory failure: (11) ARDS (adult respiratory distress syndrome): Reason for Visit Reason for Visit Resp Distress Summary Summary Summary: Liliana Davis is a 62 year old female presented from retirement, carries history of Parkinson's, aspiration, PEG tube feeds bolus 3 times a day, she also remains neutropenic with pancytopenia, EBV serology positive, preserved ejection fraction, recent modified barium swallow study did not show aspiration however she was deemed high risk due to cervical dystonia, she is DNR/DNI, presenting with chief complaint of fever and shortness of breath. On previous admission patient was requiring 2 L of oxygen. Patient is not able to provide history, on my evaluation she was on 2 L oxygen, she was tilted towards the left, saliva is drooling from her mouth Workup in the ER reveals fever, hypoxia, neutropenia, BNP 3500, I requested D- dimer, her viral panel is pending, she received vancomycin and Zosyn Patient was admitted to [facility] for aspiration ammonia, absolute neutropenia, anemia, SIRS, with history of dysphagia. According to patient and family, patient was feeding at the retirement, for comfort, she is DNR/DNI, with history of severe Parkinson's disease. During her hospitalization she was managed with broad-spectrum antibiotic therapy, speech therapy eval, strongly recommended patient to adhere to aspiration precautions, to keep n.p.o. however patient and family declined, as she was receiving comfort feedings at the retirement they wanted it to be continued during hospitalization. After discussing the risks of comfort feeding, morbidity and mortality associates with aspiration pneumonia, and recurrent aspiration pneumonia, sepsis, septic shock, respiratory failure, patient and family voiced understanding, but still wanted to continue comfort feeding during hospitalization understanding and accepting the risks. They voiced understanding, all questions are, shared decision making, patient and family wanted to continue comfort feeding during hospitalization. Subsequently during her hospitalization, patient developed recurrent aspiration pneumonia, aspiration pneumonitis, with respiratory failure requiring BiPAP therapy, requiring high-dose IV steroids, antibiotics, respiratory therapy. However, patient's condition gradually worsened with worsening respiratory failure, with development of ards. Likely worsening respiratory failure secondary to recurrent aspiration pneumonia, aspiration pneumonitis. Patient's condition coutinued to worsen, respiratory status worsened, mentation worsen, became encephalopathic, patient is DNR/DNI, with underlying severe Parkinson's disease, with cervical dystonia, with history of aspiration pneumonia, now with recurrent aspiration pneumonia pneumonitis, ards. during her hospitalization secondary to patient's and family's wish of coutinuing feeding, after discussing the risk and benefits of all of options, patient and family voiced understanding, all questions answered, wanted to proceed with comfort care. After discussing the risk and benefits of comfort care, patient family voiced understanding, all questions answered, agreed to proceed with comfort care. Patient was made comfort care, time of 143304/19/2023 Additional Data Confirmation of as documented by pronouncing clinician: no pulse, no respirations and no heart sounds Family: at bedside Additional persons at bedside: nursing staff Attending/PCP notified?: I am attending Was code activated?: No Autopsy requested?: No Discharge Plan Discharge Patient Disposition: At Medical Facility Condition: Stable Prescriptions: No Action Zyrtec 10 mg capsule 10 mg feeding tube DAILY triamcinolone acetonide [Nasacort] 55 mcg aerosol,spray 1 spray INTRANASAL BID sennosides [senna] 8.6 mg tablet 8.6 mg feeding tube BID PRN (Reason: Constipation) venlafaxine 75 mg tablet 75 mg feeding tube BID tramadol 50 mg tablet 50 mg feeding tube Q8H PRN (Reason: Pain) gabapentin 100 mg Capsule 100 mg feeding tube TID docusate sodium 50 mg/5 mL Liquid 200 mg feeding tube DAILY magnesium oxide 250 mg magnesium Tablet 250 mg feeding tube DAILY Spiriva Respimat 2.5 mcg/actuation mist 2 puff INHALATION DAILY acetaminophen 325 mg Tablet See Rx Instructions .ROUTE .COMPLEX PRN (Reason: Pain, Mild) Rx Instructions: 650 mg per g tube every 4 hours as needed for mild or moderate pain. loperamide 2 mg Capsule 2 mg PO Q6H PRN (Reason: loose stools) polyethylene glycol 3350 [Miralax] 17 gram Powder In Packet 17 g PO DAILY PRN (Reason: Constipation) magnesium hydroxide [Milk of Magnesia] 400 mg/5 mL Suspension 30 ml PO DAILY PRN (Reason: Constipation) bisacodyl [Dulcolax (bisacodyl)] 10 mg Suppository 10 mg OH DAILY PRN (Reason: Constipation) Fleet Enema 19-7 gram/118 mL Enema 118 ml OH DAILY PRN (Reason: Constipation) omeprazole 20 mg Capsule,Delayed Release(Dr/Ec) 40 mg feeding tube DAILY furosemide 20 mg tablet 20 mg feeding tube DAILY PRN (Reason: edema) Qty: 10 0RF albuterol sulfate 90 mcg/actuation HFA aerosol inhaler 2 puff INHALATION Q6H PRN (Reason: Shortness Of Breath) Calcium 600 + D(3) 600 mg-10 mcg (400 unit) Tablet 1 tab PO BID Pro-Stat 101 15-101 gram-kcal/30 mL Liquid See Rx Instructions .ROUTE .COMPLEX Rx Instructions: 30 ml via peg-tube three times a day carbidopa-levodopa 25-250 mg tablet See Rx Instructions .ROUTE .COMPLEX Rx Instructions: take 2 tabs po daily at 0530, 1.5 tabs daily at 0930 and 2 tabs po at 13:00 carbidopa-levodopa 25-100 mg tablet 2 tab PO DAILY@17 Referrals: [facility] [Outside] Daysi Lopez MD [Primary Care Provider] - Patient Instructions: Opioid Safety DS Attestations Time Spent in /Discharge Care*: greater than 30 min Quality - AMI: AMI present?: No Quality - Stroke: CVA present?: No Quality - VTE: VTE present?: No Coding Level of Care Code 64885 Total time (in minutes) for Discharge: 45 Diagnoses Need for comfort care Dysphagia R13.10 S/P percutaneous endoscopic gastrostomy (PEG) tube placement Z93.1 Mixed stress and urge urinary incontinence N39.46 Neutropenia D70.9 Parkinson disease G20 Cervical dystonia G24.3 Aspiration pneumonia J69.0 Anemia due to other cause, not classified D64.89 Anemia type: other cause Other causes of anemia: other cause, not classified Acute hypoxic respiratory failure J96.01 ARDS (adult respiratory distress syndrome) J80
== END 2023-04-19 15:51 | disposition expired | DRG 177 ==
LOC: ER 06:02 → MEDSURG 06:08
PROVIDERS: Student in an Organized Health Care Education/Training Program; Admitting Provider Internal Medicine; Emergency Provider Emergency Medicine; PCP Family Medicine; Visit Provider Family Medicine
DX: J69.0 Pneumonitis due to inhalation of food and vomit (principal); J80 Acute respiratory distress syndrome; D61.818 Other pancytopenia; R65.10 Systemic inflammatory response syndrome (SIRS) of non-infectious origin without acute organ dysfunction; G93.40 Encephalopathy, unspecified; I50.32 Chronic diastolic (congestive) heart failure; Z99.81 Dependence on supplemental oxygen; G20.C Parkinsonism, unspecified; Z93.1 Gastrostomy status; Z74.01 Bed confinement status; Z66 Do not resuscitate; R13.10 Dysphagia, unspecified; N39.46 Mixed incontinence; Z51.5 Encounter for palliative care; G24.3 Spasmodic torticollis; D64.9 Anemia, unspecified; D70.9 Neutropenia, unspecified; Z87.01 Personal history of pneumonia (recurrent)
CPT/HCPCS: 36415; 36416; 36430; 36600; 51702; 71045; 71250; 74018; 74176; 80048; 80051; 80053; 80202; 81001; 82330; 82728; 82803; 82805; 82962; 83540; 83605; 83735; 83880; 84100; 84145; 85007; 85014; 85018; 85025; 85378; 86140; 86850; 86900; 86920; 87040; 87086; 87106; 87486; 87581; 87633; 87641; 92523; 92610; 93005; 94640; 94660; 96365; 96367; 96372; 99285; C9113; J1650; J1940; J2060; J2185; J2270; J2543; J2930; J3370; J7050; J7120; P9016; Q9963